=== PATIENT | male | born 1955 | race American Indian/Alaskan Native ===

== ENCOUNTER 2017-06-29 11:48 | Inpatient (IN) | payer OTHER ==
[2017-06-29 11:57] VITALS: BMI 25.1
[2017-06-29] MEDS ORDERED: Sodium Chloride 0.9% 1,000 ML IV ONE (12:08)
--- NOTE | 2017-06-29 12:16 | ED PDOC ---
Arrival/HPI - General Chief Complaint: Dizziness/Lightheaded Time Seen by Provider: 06/29/17 12:08 Historian: Patient, EMS EM Caveat: Altered Mental Status - History of Present Illness Narrative History of Present Illness (Text): 06/29/17 12:12 Pt arrived via EMS/from work, stating he felt very dizzy and lightheaded, + felt like he was about to pass out, pt states no sweats/chills, no cp/sob/ palpitations, no abd pain, no n/v, no numbness/tingling, no urinary/bowel changes; pt states no castañeda, no vision changes, no sore throat, ? body aches, decr appetite, no fall/trauma/travel, no sick contact; pt denied other complaints; pt is here for further eval. 06/29/17 22:34 pt also has had prolonged periods of left foot wound with ? discharge/bleeding pt does not have a PCP and has not seen anyone for his foot issues Time/Duration: Prior to Arrival Symptom Onset: Sudden Symptom Course: Unchanged Quality: Other (weakness) Severity Level: 9 Activities at Onset: Other (walking to the bathroom) Context: Walking Past Medical History - Provider Review Nursing Documentation Reviewed: Yes - Travel History Have you recently traveled outside [place] w/in the past 3 mons?: No - Cardiac Hx Cardiac Disorders: No - Pulmonary Hx Respiratory Disorders: No - Neurological Hx Neurological Disorder: No - HEENT Hx HEENT Disorder: No - Renal Hx Renal Disorder: No - Endocrine/Metabolic Hx Endocrine Disorders: No - Hematological/Oncological Hx Blood Disorders: No - Integumentary Hx Dermatological Disorder: No - Musculoskeletal/Rheumatological Hx Musculoskeletal Disorders: No - Gastrointestinal Hx Gastrointestinal Disorders: No - Genitourinary/Gynecological Hx Genitourinary Disorders: No - Psychiatric Hx Psychophysiologic Disorder: No Hx Substance Use: No Family/Social History - Physician Review Nursing Documentation Reviewed: Yes Family/Social History: Unknown Family HX Smoking Status: Never Smoked Hx Alcohol Use: No Hx Substance Use: No Allergies/Home Meds Allergies/Adverse Reactions: Allergies No Known Allergies Allergy (Verified 06/29/17 11:57) Home Medications: Home Meds Medication Instructions Recorded Confirmed No Known Home Med 06/29/17 06/29/17 Review of Systems - Review of Systems Constitutional: Fatigue, Fevers Eyes: Normal ENT: Normal Respiratory: Normal Cardiovascular: Normal Gastrointestinal: Normal Musculoskeletal: Other (lower leg pain) Skin: Normal Neurological: Dizziness, Disequilibrium Endocrine: Normal Hemo/Lymphatic: Normal Psychiatric: Normal Physical Exam - Physical Exam Physical Exam Limitations: Clinical Condition (elevated Fever/HR/BP) Vital Signs Temp Pulse Resp BP Pulse Ox 06/29/17 22:28 99.6 F 75 16 155/75 H 100 06/29/17 19:00 88 18 135/69 100 06/29/17 16:00 89 16 138/86 99 06/29/17 15:32 100.1 F H 06/29/17 13:14 95 H 16 142/90 99 06/29/17 12:28 103.3 F H 06/29/17 11:58 103.3 F H 108 H 20 183/84 H 97 06/29/17 11:57 103.3 F H 108 H 20 183/84 H 97 Temperature: Febrile Blood Pressure: Hypertensive Pulse: Tachycardic Respiratory Rate: Normal Appearance: Positive for: Other (uncomfortable, unsteady, resting in bed, alert/ awake, GCS = 15, oriented x 2 (not to date/time), cooperative) Pain Distress: Mild Mental Status: Positive for: Confused - Systems Exam Head: Present: Atraumatic, Normocephalic Pupils: Present: PERRL, Other (no photophobia, sclera anicteric, no nystagmus, no visual field changes/deficits) Extroacular Muscles: Present: EOMI Conjunctiva: Present: Normal Ears: Present: Normal Mouth: Present: Moist Mucous Membranes Pharnyx: Present: Normal Neck: Present: Normal Range of Motion Respiratory/Chest: Present: Clear to Auscultation Cardiovascular: Present: Normal S1, S2, Other (+ elevated HR, no murmur) Abdomen: Present: Normal Bowel Sounds, Other (well nourished male, no focal tenderness; no horowitz's sign, no mcburney's point tenderness). No: Tenderness Back: Present: Normal Inspection Upper Extremity: Present: Normal Inspection, Normal ROM, NORMAL PULSES, Neurovascularly Intact Lower Extremity: Present: Normal Inspection, NORMAL PULSES, Neurovascularly Intact, Other (+ left base of great toe with severe bunion with noted medial region ulcerations, + foul odor; no active discharge is noted, no active bleeding noted, neurovasc intact b/l, intact ROM) Neurological: Present: GCS=15, CN II-XII Intact, Speech Normal Skin: Present: Warm, Normal Color Psychiatric: Present: Alert, Normal Affect Medical Decision Making ED Course and Treatment: 06/29/17 12:27 pt with acute onset of fever/abnl vital signs and left lower ext infxn with foul odor A/P: at risk for sepsis - labs - iv - xray - cultures - abx - observe - supportive care Dr Reyes, podiatry cruise consultant, made aware, agrees with ED mgt/txt and will send her team down to evaluate patient 06/29/17 22:40 5pm - I spoke to cruise consultant hospitalists, made aware, agrees with ED mgt/txt, agrees with admission pt is made aware of his medical results agrees with admission Reassessment Condition: Improved - Lab Interpretations Microbiology Results: Microbiology Results 06/29/17 13:18 Foot - Left Gram Stain - Final Lab Results: 06/29/17 12:20 06/29/17 12:20 Lab Results 06/29/17 14:00: Hemoglobin A1c 6.9 H 06/29/17 14:00: ESR 80 H 06/29/17 14:00: C-React Prot High Sens > 15.00 H 06/29/17 12:29: POC Glucose (mg/dL) 152 H 06/29/17 12:20: Triglycerides 73, Cholesterol 148, LDL Cholesterol Direct 72, HDL Cholesterol 49 06/29/17 12:20: Procalcitonin 0.42 06/29/17 12:20: Sodium 140, Chloride 102, Potassium 3.9, Carbon Dioxide 25, Anion Gap 17, BUN 24 H, Creatinine 1.3, Est GFR ( Amer) > 60, Est GFR ( Non-Af Amer) 57, Random Glucose 166 H, Calcium 9.8, Phosphorus 2.9, Magnesium 0.8 L*, Total Bilirubin 0.5, AST 32, ALT 29, Alkaline Phosphatase 71, Troponin I 0.06, Total Protein 7.8, Albumin 3.8, Globulin 4.0, Albumin/Globulin Ratio 0.9 L 06/29/17 12:20: pO2 57 H, VBG pH 7.46 H, VBG pCO2 39.0 L, VBG HCO3 27.7, VBG Total CO2 28.9 H, VBG O2 Sat (Calc) 92.0 H, VBG Base Excess 3.7 H, VBG Potassium 4.0, Sodium 137.0, Chloride 103.0, Glucose 169 H, Lactate 1.7, FiO2 21.0, Venous Blood Potassium 4.0 06/29/17 12:20: Urine Color Yellow, Urine Appearance Clear, Urine pH 6.0, Ur Specific [place] >= 1.030, Urine Protein >=300 H, Urine Glucose (UA) 100 H, Urine Ketones Negative, Urine Blood Moderate H, Urine Nitrate Negative, Urine Bilirubin Negative, Urine Urobilinogen 0.2, Ur Leukocyte Esterase Negative, Urine RBC 1 - 3, Urine WBC 1 - 3, Ur Epithelial Cells 1 - 3, Urine Bacteria Few , Urine Other Usperm 06/29/17 12:20: WBC 7.3, RBC 4.28, Hgb 13.5 L, Hct 39.5 L, MCV 92.3, MCH 31.5, MCHC 34.2, RDW 12.5, Plt Count 225, MPV 8.7, Gran % 90.7 H, Lymph % (Auto) 3.6 L , [place] % (Auto) 4.8, Eos % (Auto) 0.8 L, Baso % (Auto) 0.1, Gran # 6.58 H, Lymph # 0.3 L, [place] # 0.4, Eos # 0.1, Baso # 0.01, Neutrophils % (Manual) 91 H, Lymphocytes % (Manual) 6 L, Monocytes % (Manual) 3, Platelet Evaluation Normal, Anisocytosis (manual) Slight I have reviewed the lab results: Yes (mildly elevated GLUC) Interpretation: Abnormal lab values - RAD Interpretation Radiology Orders: 06/29/17 12:09 CHEST TWO VIEWS (PA/LAT) [RAD] Stat 06/29/17 12:21 FOOT LEFT 3 VIEWS ROUTINE [RAD] Stat BONES: No acute fracture. There is an ovoid circumscribed radiolucent lesion centrally within the medullary portion of the proximal 3rd metatarsal diaphysis. There is endosteal scalloping. There is no expansion. There is no identifiable calcified matrix within this lesion. There is no associated periosteal reaction or evidence soft tissue mass. Most likely diagnosis is enchondroma but its appearance is not pathognomonic. JOINTS: There is severe lateral subluxation at the 1st metatarsal phalangeal articulation. There is articular erosion of the 1st metatarsal. Questionable juxta-articular erosion of the metatarsal head is seen on series 6. There is subluxation/dislocation at the 2nd metatarsal phalangeal articulation and at the 3rd metatarsal phalangeal articulation. There is pencil -like deformity of the distal aspect of the 2nd metatarsal. These findings are of uncertain significance. The possibility of psoriatic arthritis must be considered. Gout should also be considered particularly in light of possible juxta-articular erosion of the distal 1st metatarsal with overhanging edges and possible overlying tophus. There is cutaneous ulceration over the medial aspect of the 1st metatarsal head. SOFT TISSUES: Soft tissue swelling over medial aspect 1st metatarsal head with cutaneous ulceration. OTHER FINDINGS: None. IMPRESSION: Subluxation at 1st through 3rd metatarsal phalangeal articulation with valgus deformity. Pencil like narrowing of distal aspect of 2nd metatarsal. Possible juxta-articular erosion of distal 1st metatarsal with overlying soft tissue swelling, possibly due to gout. Psoriatic arthritis may also be considered for the generalized articular abnormality at the MTP joints. Circumscribed lucent lesion of the proximal 3rd metatarsal diaphysis with an appearance suggestive of enchondroma though this is not pathognomonic. Followup advised. CXR: FINDINGS: LUNGS: No pulmonary infiltrate. Probable small calcified granulomas in the lateral upper right thania thorax, not identified in the lateral projection. PLEURA: No significant pleural effusion identified. No pneumothorax apparent. CARDIOVASCULAR: Normal. OSSEOUS STRUCTURES: No significant abnormalities. VISUALIZED UPPER ABDOMEN: Normal. OTHER FINDINGS: None. IMPRESSION: Small calcified granulomas in right lung. No acute infiltrate. 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 - Medication Orders Current Medication Orders: Acetaminophen (Tylenol 325mg Tab) 975 mg PO ONCE PRN PRN Reason: Fever >100.4 F Last Admin: 06/29/17 12:28 Dose: 975 mg MAR Pain/Vitals Document 06/29/17 12:28 HI (Rec: 06/29/17 12:29 HI [id number]) Pain Reassessment Is This A Pain ReAssessment? No Vitals Temperature (97.6 F-99.6 F) 103.3 F Temperature Source Oral Clotrimazole (Lotrimin Af 1%) 0 ml TOP BID DELORES Enoxaparin Sodium (Lovenox) 30 mg SC DAILY DELORES PRN Reason: Protocol Famotidine (Pepcid) 40 mg PO HS DELORES Sodium Chloride (Sodium Chloride 0.9%) 1,000 mls @ 150 mls/hr IV .Q6H40M DELORES Last Admin: 06/29/17 19:11 Dose: 150 mls/hr eMAR Start Stop Document 06/29/17 19:11 HI (Rec: 06/29/17 19:12 [id number]) Intravenous Solution Start Date 06/29/17 Start Time 19:12 Vancomycin HCl (Vancomycin 500mg In Ns) 500 mg in 100 mls @ 200 mls/hr IVPB Q12 DELORES PRN Reason: Protocol Piperacillin Sod/Tazobactam Sod (Zosyn 3.375 In Ns 100ml) 100 mls @ 200 mls/hr IVPB Q6 DELORES PRN Reason: Protocol Stop: 06/30/17 00:29 Last Admin: 06/29/17 20:20 Dose: 200 mls/hr eMAR Start Stop Document 06/29/17 20:20 HI (Rec: 06/29/17 20:20 [id number]) Intravenous Solution Start Date 06/29/17 Start Time 20:20 Lactic Acid (Lac-Hydrin 12% Cream (140 G)) 1 ea TOP DAILY DELORES Lorazepam (Ativan) 2 mg IVP Q6H PRN; Protocol PRN Reason: Anxiety Discontinued Medications Sodium Chloride (Sodium Chloride 0.9%) 1,000 mls @ 2,000 mls/hr IV .Q30M ONE Stop: 06/29/17 12:37 Last Admin: 06/29/17 12:29 Dose: 2,000 mls/hr eMAR Start Stop Document 06/29/17 12:29 HI (Rec: 06/29/17 12:29 [id number]) Intravenous Solution Start Date 06/29/17 Start Time 12:29 Vancomycin HCl 1.5 gm/ Sodium (Chloride) 250 mls @ 167 mls/hr IVPB ONCE ONE PRN Reason: Protocol Stop: 06/29/17 13:52 Last Admin: 06/29/17 14:16 Dose: 167 mls/hr eMAR Start Stop Document 06/29/17 14:16 HI (Rec: 06/29/17 14:16 HI [facility] [id number]) Intravenous Solution Start Date 06/29/17 Start Time 14:16 Piperacillin Sod/Tazobactam Sod (Zosyn 3.375 In Ns 100ml) 100 mls @ 200 mls/hr IVPB STAT STA PRN Reason: Protocol Stop: 06/29/17 12:52 Last Admin: 06/29/17 13:26 Dose: 200 mls/hr eMAR Start Stop Document 06/29/17 13:26 HI (Rec: 06/29/17 13:26 HI [facility] [id number]) Intravenous Solution Start Date 06/29/17 Start Time 13:26 Magnesium Sulfate 2 gm/ Sodium (Chloride) 104 mls @ 102 mls/hr IVPB ONCE ONE Stop: 06/29/17 15:05 Last Admin: 06/29/17 15:27 Dose: 102 mls/hr eMAR Start Stop Document 06/29/17 15:27 HI (Rec: 06/29/17 15:27 HI [facility] [id number]) Intravenous Solution Start Date 06/29/17 Start Time 15:27 Morphine Sulfate (Morphine) 4 mg IVP STAT STA Stop: 06/29/17 14:29 Last Admin: 06/29/17 15:18 Dose: 4 mg [facility] Pain Assessment Document 06/29/17 15:18 HI (Rec: 06/29/17 15:18 HI [facility] [id number]) Pain Reassessment Is this a pain reassessment? No Sleep Is patient sleeping during reassessment? No Presence of Pain Presence of Pain Yes Location Left, Right or Bilateral Right Pain Location Body Site Foot IVP Administration Document 06/29/17 15:18 HI (Rec: 06/29/17 15:18 HI [facility] [id number]) Charges for Administration # of IVP Administrations 1 Re-Assess: MAR Pain Assessment Document 06/29/17 16:18 HI (Rec: 06/29/17 16:35 HI [facility] [id number]) Pain Reassessment Is this a pain reassessment? Yes Sleep Is patient sleeping during reassessment? No Presence of Pain Presence of Pain No Silver Sulfadiazine (Silvadene 1% 25 Gm) 1 gm TP STAT STA Stop: 06/29/17 13:30 Disposition/Present on Arrival - Present on Arrival Any Indicators Present on Arrival: No History of DVT/PE: No History of Uncontrolled Diabetes: No Urinary Catheter: No History of Decub. Ulcer: No History Surgical Site Infection Following: None - Disposition Have Diagnosis and Disposition been Completed?: Yes Diagnosis: High risk for sepsis, Foot infection Disposition: HOSPITALIZED Disposition Time: 17:00 Patient Plan: Admission Condition: FAIR
[2017-06-29] MEDS ORDERED: Piperacillin/Tazobact 3.375 gm 100 ML IVPB STA (12:23)
[2017-06-29 12:37] LABS: VENOUS BLOOD GAS BASE EXCESS 3.7 mmol/L (0.0-2.0); VENOUS BLOOD PH 7.46 (7.32-7.43)
[2017-06-29 12:40] LABS: BASO # 0.01 K/mm3 (0.0-2.0); BASO % 0.1 % (0.0-3.0); EOS # 0.1 (0.0-0.7); EOS % 0.8 % (1.5-5.0); GRAN # 6.58 (1.4-6.5); GRAN % 90.7 % (50.0-68.0); HEMATOCRIT 39.5 % (42.0-52.0); LYMPH # 0.3 (1.2-3.4); LYMPH % 3.6 % (22.0-35.0); MEAN CELL VOLUME 92.3 fl (80.0-105.0); MEAN CORPUSCULAR HEMOGLOBIN 31.5 pg (25.0-35.0); MEAN CORPUSCULAR HGB CONC 34.2 g/dl (31.0-37.0); MEAN PLATELET VOLUME 8.7 fl (7.0-11.0); MONO # 0.4 (0.1-0.6); MONO % 4.8 % (1.0-6.0); PLATELET COUNT 225 10^3/uL (120.0-450.0); RED CELL DISTRIBUTION WIDTH 12.5 % (11.5-14.5); URINE BILIRUBIN NEGATIVE (NEGATIVE); URINE BLOOD MODERATE (NEGATIVE); URINE GLUCOSE (UA) 100 mg/dL (NEGATIVE); URINE KETONE NEGATIVE (NEGATIVE); URINE LEUKOCYTE ESTERASE NEGATIVE Leu/uL (NEGATIVE); URINE PROTEIN >=300 mg/dL (<30 mg/dL); URINE UROBILINOGEN 0.2 E.U./dL (<1 E.U./dL); WHITE BLOOD COUNT 7.3 10^3/ul (4.5-11.0)
[2017-06-29 12:48] LABS: URINE APPEARANCE CLEAR (CLEAR); URINE COLOR YELLOW (YELLOW)
[2017-06-29 12:53] LABS: URINE BACTERIA FEW (NEG)
[2017-06-29 13:01] LABS: TROPONIN I 0.06 ng/mL
[2017-06-29 13:04] LABS: ALB/GLOB RATIO 0.9 (1.1-1.8); ALKALINE PHOSPHATASE 71 U/L (38-126); ALT/SGPT 29 U/L (7-56); AST/SGOT 32 U/L (17-59); BILIRUBIN,TOTAL 0.5 mg/dL (0.2-1.3); BLOOD UREA NITROGEN 24 mg/dL (7-21); CALCIUM 9.8 mg/dL (8.4-10.5); CARBON DIOXIDE 25 mmol/L (21-33); CHLORIDE 102 mmol/L (98-107); GFR AFRICAN-AMERICAN > 60; GLUCOSE,RANDOM 166 mg/dL (70-110); MAGNESIUM 0.8 mg/dL (1.7-2.2); PHOSPHOROUS 2.9 mg/dL (2.5-4.5); POTASSIUM 3.9 mmol/L (3.6-5.0); SODIUM 140 mmol/L (132-148); TOTAL PROTEIN 7.8 g/dL (5.8-8.3)
[2017-06-29 13:19] LABS: ANISOCYTOSIS SLIGHT; NEUTROPHIL 91 % (50.0-70.0); PLATELET ESTIMATE NORMAL (NORMAL)
[2017-06-29] MEDS ORDERED: Silver Sulfadiazine 1% Cream (25 gm) TP STA (13:29)
--- NOTE | 2017-06-29 13:53 | CP.PCM.CON ---
History of Present Illness - History of Present Illness History of Present Illness: Podiatry Consult Note for Dr. Reyes 61 year old male with unknown PMH was consulted for podiatry for left foot ulceration. Patient came to the ED after feeling dizzy at work and unable to walk. He reports that a similar incident occurred 3 weeks ago. He felt dizzy, weak, and unable to walk properly which prompt him to leave work early to rest at home. Patient complains of left foot problem. Reports that his "foot burst opened" 2 weeks ago. He reports 10/10 throbbing pain to the left foot. He denies any recent trauma/fall. Never had this problem in the past. He denies nausea, chest pain, chills, shortness of breath. He reports that he vomited yesterday and has a fever today. He denies calf pain. Primary: doesn't recall name; reports last saw him 6 months ago PMH: unknown; reports getting blood work done from primary but results unknown PSH: denies ALL: NKDA MEDS: denies FH: father- DM, mother-none SH: 20 year smoker, 3-4 cigarettes per day; drinks 1 can of beer per day for over 10 years; denies elicit drug use Review of Systems - Review of Systems All systems: reviewed and no additional remarkable complaints except Review of Systems: per HPI - Constitutional Constitutional: As Per HPI, Fever Past Patient History - Past Social History Smoking Status: Never Smoked - CARDIAC Hx Cardiac Disorders: No - PULMONARY Hx Respiratory Disorders: No - NEUROLOGICAL Hx Neurological Disorder: No - HEENT Hx HEENT Problems: No - RENAL Hx Chronic Kidney Disease: No - ENDOCRINE/METABOLIC Hx Endocrine Disorders: No - HEMATOLOGICAL/ONCOLOGICAL Hx Blood Disorders: No - INTEGUMENTARY Hx Dermatological Problems: No - MUSCULOSKELETAL/RHEUMATOLOGICAL Hx Musculoskeletal Disorders: No - GASTROINTESTINAL Hx Gastrointestinal Disorders: No - GENITOURINARY/GYNECOLOGICAL Hx Genitourinary Disorders: No - PSYCHIATRIC Hx Psychophysiologic Disorder: No Hx Substance Use: No - SURGICAL HISTORY Hx Surgeries: No Meds Allergies/Adverse Reactions: Allergies Allergy/AdvReac Type Severity Reaction Status Date / Time No Known Allergies Allergy Verified 06/29/17 11:57 - Medications Medications: Current Medications Acetaminophen (Tylenol 325mg Tab) 975 mg PO ONCE PRN PRN Reason: Fever >100.4 F Last Admin: 06/29/17 12:28 Dose: 975 mg Sodium Chloride (Sodium Chloride 0.9%) 1,000 mls @ 150 mls/hr IV .Q6H40M DELORES Vancomycin HCl 1.5 gm/ Sodium (Chloride) 250 mls @ 167 mls/hr IVPB ONCE ONE PRN Reason: Protocol Stop: 06/29/17 13:52 Lactic Acid (Lac-Hydrin 12% Cream (140 G)) 1 ea TOP DAILY DELORES Physical Exam - Constitutional Appears: Well, Non-toxic, No Acute Distress - Extremities Exam Additional comments: Vasc: DP and PT 1/4 bilaterally, CFT < 3 seconds x 10 digits, temperature warm to warm, edema noted to the left forefoot Ortho: severe pain with palpation to the site surrounding ulceration; severe hallux valgus bilaterally, lateral deviation of the digits noted, hammertoe contractures 2-4 noted Neuro: protective and gross sensation intact bilaterally Derm: ulceration at the medial plantar aspect of the 1st MPJ of left foot measuring approximately 1.5 cm x 2cm x . 2 cm. Wound base is 50% fibrotic, 50% granular with fibrotic slough noted to the plantar aspect of the ulceration. Approximately 1 cc of purulence drainaged expressed from the proximal plantar aspect of the ulceration; mild undermining noted to the ulceration plantarly; no tunneling noted; no probing to bone noted; erythema and malodorous. No streaking noted; Macerated and intact periwound noted. Discoloration/ hyperpigmentated skin noted to the LE bilaterally. - Neurological Exam Neurological exam: Alert, Oriented x3 - Psychiatric Exam Psychiatric exam: Normal Affect, Normal Mood Results - Vital Signs Recent Vital Signs: Last Vital Signs Temp 103.3 F H 06/29/17 12:28 Pulse 95 H 06/29/17 13:14 Resp 16 06/29/17 13:14 BP 142/90 06/29/17 13:14 Pulse Ox 99 06/29/17 13:14 - Labs Result Diagrams: 06/29/17 12:20 06/29/17 12:20 Labs: Laboratory Results - last 24 hr 06/29/17 06/29/17 06/29/17 12:20 12:20 12:20 WBC 7.3 RBC 4.28 Hgb 13.5 L Hct 39.5 L MCV 92.3 MCH 31.5 MCHC 34.2 RDW 12.5 Plt Count 225 MPV 8.7 Gran % 90.7 H Lymph % (Auto) 3.6 L [place] % (Auto) 4.8 Eos % (Auto) 0.8 L Baso % (Auto) 0.1 Gran # 6.58 H Lymph # 0.3 L [place] # 0.4 Eos # 0.1 Baso # 0.01 Neutrophils % (Manual) 91 H Lymphocytes % (Manual) 6 L Monocytes % (Manual) 3 Platelet Evaluation Normal Anisocytosis (manual) Slight pO2 57 H VBG pH 7.46 H VBG pCO2 39.0 L VBG HCO3 27.7 VBG Total CO2 28.9 H VBG O2 Sat (Calc) 92.0 H VBG Base Excess 3.7 H VBG Potassium 4.0 Sodium 137.0 Chloride 103.0 Glucose 169 H Lactate 1.7 FiO2 21.0 Potassium Carbon Dioxide Anion Gap BUN Creatinine Est GFR ( Amer) Est GFR (Non-Af Amer) Random Glucose Calcium Phosphorus Magnesium Total Bilirubin AST ALT Alkaline Phosphatase Troponin I Total Protein Albumin Globulin Albumin/Globulin Ratio Venous Blood Potassium 4.0 Urine Color Yellow Urine Appearance Clear Urine pH 6.0 Ur Specific [place] >= 1.030 Urine Protein >=300 H Urine Glucose (UA) 100 H Urine Ketones Negative Urine Blood Moderate H Urine Nitrate Negative Urine Bilirubin Negative Urine Urobilinogen 0.2 Ur Leukocyte Esterase Negative Urine RBC 1 - 3 Urine WBC 1 - 3 Ur Epithelial Cells 1 - 3 Urine Bacteria Few Urine Other Usperm 06/29/17 12:20 WBC RBC Hgb Hct MCV MCH MCHC RDW Plt Count MPV Gran % Lymph % (Auto) [place] % (Auto) Eos % (Auto) Baso % (Auto) Gran # Lymph # [place] # Eos # Baso # Neutrophils % (Manual) Lymphocytes % (Manual) Monocytes % (Manual) Platelet Evaluation Anisocytosis (manual) pO2 VBG pH VBG pCO2 VBG HCO3 VBG Total CO2 VBG O2 Sat (Calc) VBG Base Excess VBG Potassium Sodium 140 Chloride 102 Glucose Lactate FiO2 Potassium 3.9 Carbon Dioxide 25 Anion Gap 17 BUN 24 H Creatinine 1.3 Est GFR ( Amer) > 60 Est GFR (Non-Af Amer) 57 Random Glucose 166 H Calcium 9.8 Phosphorus 2.9 Magnesium 0.8 L* Total Bilirubin 0.5 AST 32 ALT 29 Alkaline Phosphatase 71 Troponin I 0.06 Total Protein 7.8 Albumin 3.8 Globulin 4.0 Albumin/Globulin Ratio 0.9 L Venous Blood Potassium Urine Color Urine Appearance Urine pH Ur Specific [place] Urine Protein Urine Glucose (UA) Urine Ketones Urine Blood Urine Nitrate Urine Bilirubin Urine Urobilinogen Ur Leukocyte Esterase Urine RBC Urine WBC Ur Epithelial Cells Urine Bacteria Urine Other Assessment & Plan - Assessment and Plan (Free Text) Assessment: 61 year old male with unknown PMH with infected left foot ulceration Plan: Patient examined and evaluated Labs, charts, vitals reviewed (febrile, absent leukocytosis: 7.3) Discussed plan in detail with attending Dr. Reyes X-rays taken- pending final results Wound culture order and taken- pending results Ulceration cleansed with saline, dressed with xerform, dsd, and demi ESR, RF factor ordered- pending results Silvadene ordered- to be applied to ulceration once on floors by podiatry Lac-Hydrin ordered- to be applied to LE PRN, avoid foot interspaces Lotrimin ordered- to be applied to LE as instructed Podiatry will continue to follow once on floors Thank you for the consult
[2017-06-29] MEDS ORDERED: Magnesium Sulfate 2 GM in Sodium Chloride 0.9% 100 ML IVPB ONE (14:04)
[2017-06-29] MEDS ORDERED: Morphine 2 mg/ml ISec IVP STA (14:28)
--- NOTE | 2017-06-29 15:13 | CP.PCM.HP ---
<Laura Mcgraw - Last Filed: 06/29/17 15:56> History of Present Illness - History of Present Illness History of Present Illness: Laura Mcgraw, PGY1, Medicine H&P for Dr Antonio: CC: dizziness 61 year old male with PMH questionable HTN, presents for dizziness that started 4 hours MED DIR. Pt states that he was in his usual state of health this morning, went to work, and then felt dizzy while he was heading towards the bathroom. Verbalizes increased urinary frequency for past month, denies hematuria, dysuria , hesitancy. Pt felt like he was "about to pass out." Denies LOC, chest pain, sob, cough, abdominal pain, diarrhea, constipation, leg swelling. Pt is complaining of left foot pain that started a month ago, pt does not recall any trauma or prior infection to the area. Pt has some dull pain at the site, denies any purulent drainage. Pt admits to fever this morning, however, denies any chills, diaphoresis, headache, neck pain, food intolerance, weight loss. In ED, pt found to have a left sided foot ulcer, podiatry on board, wrapped the wound. Pending foot x ray. Pt febrile 103.3, tachycardic 108, hypertensive 183/ 84, no leukocytosis, hypomagnesemic 0.8. Given Vanco and Zosyn x1, repleted Mg. 12 point ROS obtained and negative, except as noted per HPI. PMD: Pt does not have a PMD; last visit to a doctor 6 months ago for a cold PMH: HTN?, unknown PSH: hernia repair ALL: NKDA MEDS: denies FH: father- DM, mother-none SH: Lives in a house, has neighbors. 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 Walks unassisted. 20 year smoker, 3-4 cigarettes per day for past 30 years; drinks 2- 3 cans of beer per day for over 20 years; denies illicit drug use. Present on Admission - Present on Admission Any Indicators Present on Admission: No History of DVT/PE: No History of Uncontrolled Diabetes: No Urinary Catheter: No Decubitus Ulcer Present: No Review of Systems - Review of Systems All systems: reviewed and no additional remarkable complaints except Review of Systems: as per HPI Past Patient History - Past Social History Smoking Status: Never Smoked - CARDIAC Hx Cardiac Disorders: No - PULMONARY Hx Respiratory Disorders: No - NEUROLOGICAL Hx Neurological Disorder: No - HEENT Hx HEENT Problems: No - RENAL Hx Chronic Kidney Disease: No - ENDOCRINE/METABOLIC Hx Endocrine Disorders: No - HEMATOLOGICAL/ONCOLOGICAL Hx Blood Disorders: No - INTEGUMENTARY Hx Dermatological Problems: No - MUSCULOSKELETAL/RHEUMATOLOGICAL Hx Musculoskeletal Disorders: No - GASTROINTESTINAL Hx Gastrointestinal Disorders: No - GENITOURINARY/GYNECOLOGICAL Hx Genitourinary Disorders: No - PSYCHIATRIC Hx Psychophysiologic Disorder: No Hx Substance Use: No - SURGICAL HISTORY Hx Surgeries: No Meds Allergies/Adverse Reactions: Allergies Allergy/AdvReac Type Severity Reaction Status Date / Time No Known Allergies Allergy Verified 06/29/17 11:57 Physical Exam - Constitutional Appears: Non-toxic, Unkempt, Older Than Stated Age - Head Exam Head Exam: ATRAUMATIC, NORMOCEPHALIC - Eye Exam Eye Exam: EOMI, PERRL. absent: Scleral icterus - ENT Exam ENT Exam: Mucous Membranes Moist, Normal Exam - Respiratory Exam Respiratory Exam: Clear to Auscultation Bilateral. absent: Decreased Breath Sounds, Respiratory Distress - Cardiovascular Exam Cardiovascular Exam: Tachycardia, +S1, +S2. absent: Systolic Murmur - GI/Abdominal Exam GI & Abdominal Exam: Normal Bowel Sounds, Soft. absent: Distended, Guarding, Organomegaly, Pulsatile Mass, Rebound, Rigid, Tenderness - Extremities Exam Extremities exam: Negative for: calf tenderness, pedal edema Additional comments: left foot covered in dressing, c/d/i - Neurological Exam Neurological exam: Alert, Oriented x3 - Psychiatric Exam Psychiatric exam: Normal Affect - Skin Skin Exam: Dry, Normal Color, Warm Results - Vital Signs Recent Vital Signs: Last Vital Signs Temp 103.3 F H 06/29/17 12:28 Pulse 95 H 06/29/17 13:14 Resp 16 06/29/17 13:14 BP 142/90 06/29/17 13:14 Pulse Ox 99 06/29/17 13:14 - Labs Result Diagrams: 06/29/17 12:20 06/29/17 12:20 Assessment & Plan - Assessment and Plan (Free Text) Assessment: 61 years old male with PMH HTN?, presents for sepsis, dizziness/near syncope, HTN urgency, left foot ulcer, hypomagnesemia: Sepsis: - 2/2 likely left foot infection - Pt febrile 103.3 and tachycardic, given Tylenol in ED. Given Vanco and Zosyn x1 in ED. - CXR, UA, wound culture, blood cultures, urine cultures, procal, ESR, CRP, left foot x ray. - Lactate 1.7. - Will order MRI left foot to r/o osteomyelitis - Podiatry on board. Appreciate recs. - Will obtain ID consult. - Cont with IV Vanco and zosyn empirically Dizziness: - 2/2 likely orthostatic vs cardiac etiology (arrhythmias, valvular abnormalities, acute ischemia) vs neurogenic etiology - Echo, carotid US, EKG, Remote tele monitoring - Lipid panel, HGb A1C - Obtain Cardio consult. HTN urgency: - BP elevated 183/84 on admission, currently 142/90. Cont to monitor. - Can give one time dose of Lopressor 5 mg if needed. DVT ppx: Lovenox GI PPX: Pepcid Discussed with Dr Antonio - Date & Time Date: 06/29/17 Time: 15:41 <Piotr Antonio - Last Filed: 06/29/17 16:23> Results - Vital Signs Recent Vital Signs: Last Vital Signs Temp 100.1 F H 06/29/17 15:32 Pulse 95 H 06/29/17 13:14 Resp 16 06/29/17 13:14 BP 142/90 06/29/17 13:14 Pulse Ox 99 06/29/17 13:14 - Labs Result Diagrams: 06/29/17 12:20 06/29/17 12:20 Labs: Laboratory Results - last 24 hr 06/29/17 15:37 Alcohol, Quantitative < 10 Attending/Attestation - Attestation I have personally seen and examined this patient.: Yes I have fully participated in the care of the patient.: Yes I have reviewed all pertinent clinical information: Yes Notes (Text): 06/29/17 16:16 61 year old male with no known past medical history except ETOH use who is admitted for sepsis likely secondary to left foot infection. Left foot xray and MRI foot were ordered to rule out OM. Will follow up on ESR and CRP. Continue with iv antibiotics as per ID and wound care as per podiatry. Will follow up on cultures. He also presented with complaint of presyncopal episode and elevated blood pressure. Will obtain CT head, orthostatics, carotid dopplers and echocardiogram. Cardiology evaluation is requested. Initial troponin is indeterminant and repeat cardiac enzymes are ordered. He denies any chest pain or shortness of breath. Alcohol level was also ordered; will monitor for withdrawal symptoms. Will replete and repeat magnesium. Piotr Antonio MD Hospitalist.
[2017-06-29] MEDS: Sodium Chloride 0.9% 1,000 ML IV SCH ×2 (15:27→19:11)
[2017-06-29 15:46] LABS: CHOLESTEROL 148 mg/dL (130-200)
--- NOTE | 2017-06-29 16:00 | RAD ---
PROCEDURE: Left Foot Radiographs. HISTORY: foot pain/chronic, requiring surgery COMPARISON: None. FINDINGS: BONES: No acute fracture. There is an ovoid circumscribed radiolucent lesion centrally within the medullary portion of the proximal 3rd metatarsal diaphysis. There is endosteal scalloping. There is no expansion. There is no identifiable calcified matrix within this lesion. There is no associated periosteal reaction or evidence soft tissue mass. Most likely diagnosis is enchondroma but its appearance is not pathognomonic. JOINTS: There is severe lateral subluxation at the 1st metatarsal phalangeal articulation. There is articular erosion of the 1st metatarsal. Questionable juxta-articular erosion of the metatarsal head is seen on series 6. There is subluxation/dislocation at the 2nd metatarsal phalangeal articulation and at the 3rd metatarsal phalangeal articulation. There is pencil -like deformity of the distal aspect of the 2nd metatarsal. These findings are of uncertain significance. The possibility of psoriatic arthritis must be considered. Gout should also be considered particularly in light of possible juxta-articular erosion of the distal 1st metatarsal with overhanging edges and possible overlying tophus. There is cutaneous ulceration over the medial aspect of the 1st metatarsal head. SOFT TISSUES: Soft tissue swelling over medial aspect 1st metatarsal head with cutaneous ulceration. OTHER FINDINGS: None. IMPRESSION: Subluxation at 1st through 3rd metatarsal phalangeal articulation with valgus deformity. Pencil like narrowing of distal aspect of 2nd metatarsal. Possible juxta-articular erosion of distal 1st metatarsal with overlying soft tissue swelling, possibly due to gout. Psoriatic arthritis may also be considered for the generalized articular abnormality at the MTP joints. Circumscribed lucent lesion of the proximal 3rd metatarsal diaphysis with an appearance suggestive of enchondroma though this is not pathognomonic. Followup advised.
--- NOTE | 2017-06-29 16:50 | RAD ---
HISTORY: Sepsis Patient COMPARISON: No prior. TECHNIQUE: Chest PA and lateral FINDINGS: LUNGS: No pulmonary infiltrate. Probable small calcified granulomas in the lateral upper right thania thorax, not identified in the lateral projection. PLEURA: No significant pleural effusion identified. No pneumothorax apparent. CARDIOVASCULAR: Normal. OSSEOUS STRUCTURES: No significant abnormalities. VISUALIZED UPPER ABDOMEN: Normal. OTHER FINDINGS: None. IMPRESSION: Small calcified granulomas in right lung. No acute infiltrate.
--- NOTE | 2017-06-29 17:34 | MRI ---
PROCEDURE: MRI of the left foot without contrast HISTORY: left foot infection COMPARISON: Comparison is made to the previous x-ray dated 06/29/2017 TECHNIQUE: Axial coronal and sagittal MRI images of the left foot were obtained without IV contrast administration. FINDINGS: There is cortical erosion and bone marrow edema at the distal head of the 1st metatarsal bone adjacent to skin ulcer. Findings suspicious for osteomyelitis. No other acute pathology in the osseous structure noted. There is with defined hyperintense T2 and hypointense T1 lesion at the proximal portion of the 3rd metatarsal bone measures 13 millimeter in the largest AP diameter and 9 millimeter in the largest transverse diameter may represent benign cyst. Severe degenerative changes are again noted. Severe subluxation at the metatarsal-phalangeal joints are noted. Heterogeneous increased signal in the soft tissue noted without evidence of discrete fluid collection. Crfe-vm-lagpiabs diffuse increased signal of the muscles also noted suggestive of myositis. Mild to moderate soft tissue edema noted. IMPRESSION: Cortical erosion and bone marrow edema at the lateral aspect of the distal 1st metatarsal head suspicious for osteomyelitis. Well defined cystic lesion at the proximal portion of the 3rd metatarsal bone. Severe arthritic degenerative changes and subluxation at the metatarsal-phalangeal joints.
[2017-06-29] MEDS: Piperacillin/Tazobact 3.375 gm 100 ML IVPB SCH (20:20)
--- NOTE | 2017-06-29 22:20 | CT ---
EXAM: CT Head Without Intravenous Contrast CLINICAL HISTORY: 61 years old, male; Signs and symptoms; Dizziness TECHNIQUE: Axial computed tomography images of the head/brain without intravenous contrast. All CT scans at this facility use one or more dose reduction techniques, viz.: automated exposure control; ma/kV adjustment per patient size (including targeted exams where dose is matched to indication; Brain: [id number] atrophy. COMPARISON: No relevant prior studies available. FINDINGS: Brain: No intracranial hemorrhage. No mass. Several scattered foci of decreased attenuation within periventricular/subcortical white matter. Probable chronic lacunar infarct within RIGHT basal ganglia. No definite edema. Ventricles: No hydrocephalus. Bones/joints: No acute fracture. Soft tissues: Unremarkable. Vasculature: Atherosclerotic disease of intracranial arteries. Sinuses: Scattered minimal mucosal thickening. Mastoid air cells: No mastoid effusion. Orbits: Unremarkable as visualized. Other findings: head); or iterative reconstruction technique. IMPRESSION: 1. Nonspecific white matter changes. Acute infarction may be CT occult within first 24 hours. If a focal deficit persists, consider followup CT or MRI for further evaluation. 2. Incidental/non-acute findings are described above.
[2017-06-29] MEDS: Vancomycin 500mg in NS 500 MG/100 ML BAG IVPB SCH (23:25)
[2017-06-29 23:26] LABS: MAGNESIUM 1.4 mg/dL (1.7-2.2)
[2017-06-29 23:37] LABS: TROPONIN I 0.09 ng/mL
[2017-06-30] MEDS: Piperacillin/Tazobact 3.375 gm 100 ML IVPB SCH ×3 (00:55→17:28)
[2017-06-30 04:25] LABS: TROPONIN I 0.08 ng/mL
[2017-06-30] MEDS: Sodium Chloride 0.9% 1,000 ML IV SCH ×2 (05:41→20:35)
[2017-06-30] MEDS ORDERED: Magnesium Sulfate 2 GM in Sodium Chloride 0.9% 100 ML IVPB ONE (07:25)
--- NOTE | 2017-06-30 09:20 | US ---
PROCEDURE: Bilateral carotid artery duplex ultrasound HISTORY: Carotid stenosis dizziness PHYSICIAN(S): Santos Dent MD. TECHNIQUE: Duplex sonography and color-flow Doppler were used to evaluate the carotid bifurcations and limited segments of the vertebral arteries bilaterally. FINDINGS: There is mild to moderate focal heterogeneous plaque noted at the carotid bifurcations bilaterally. The peak systolic velocity in the proximal right internal carotid artery is 85 cm/sec. This corresponds to a 20 to 39% proximal right ICA stenosis. Mildly elevated systolic velocities are noted in the proximal right external carotid artery. There is antegrade flow in the small right vertebral artery. The left carotid bifurcation is obscured by shadowing plaque. The peak systolic velocity in the proximal left internal carotid artery is 87 cm/sec. This corresponds to a 20 to 39% proximal left ICA stenosis. Mildly elevated systolic velocities are noted in the proximal left external carotid artery. There is antegrade flow in the left vertebral artery. IMPRESSION: 1. Bilateral 20-39% proximal ICA stenoses. 2. Antegrade flow in both vertebral arteries. 3. Limited study due to shadowing plaque
[2017-06-30] MEDS: Clotrimazole 1% Top Soln(10 ml) TOP SCH ×2 (09:29→17:26)
[2017-06-30] MEDS: Ammonium Lactate 12% Cream (140 g) TOP SCH (09:29)
[2017-06-30] MEDS: Enoxaparin 30 mg Syringe SC SCH (09:35)
[2017-06-30] MEDS ORDERED: Oxycodone/Acetaminophen 5/325 mg Tab PO PRN (09:36)
[2017-06-30 09:45] LABS: BASO # 0.02 K/mm3 (0.0-2.0); BASO % 0.3 % (0.0-3.0); EOS # 0.2 (0.0-0.7); EOS % 2.1 % (1.5-5.0); GRAN # 6.08 (1.4-6.5); GRAN % 80.5 % (50.0-68.0); LYMPH # 0.5 (1.2-3.4); LYMPH % 6.1 % (22.0-35.0); MEAN CELL VOLUME 93.5 fl (80.0-105.0); MEAN CORPUSCULAR HEMOGLOBIN 31.4 pg (25.0-35.0); MEAN CORPUSCULAR HGB CONC 33.6 g/dl (31.0-37.0); MEAN PLATELET VOLUME 8.9 fl (7.0-11.0); MONO # 0.8 (0.1-0.6); RED CELL DISTRIBUTION WIDTH 12.8 % (11.5-14.5); WHITE BLOOD COUNT 7.6 10^3/ul (4.5-11.0)
--- NOTE | 2017-06-30 09:45 | CP.PCM.PN ---
Subjective - Date & Time of Evaluation Date of Evaluation: 06/30/17 Time of Evaluation: 09:42 - Subjective Subjective: Podiatry Progress Note for Dr. Reyes 61 y.o male seen at bedside with attending Dr. Reyes for left foot ulceration. Patient is seen resting comfortably in bed, in NAD, and AA0x3. Patient denies any acute overnight. Dressing is clean, dry, intact. Patient reports pain to the left foot, 10/10 throbbing pain. Patient denies n/v/sob/cp/ chills/d or f at this moment. Objective - Vital Signs/Intake and Output Vital Signs (last 24 hours): Temp Pulse Resp BP Pulse Ox 98.3 F 89 17 123/71 94 L 06/30/17 06:00 06/30/17 06:00 06/30/17 06:00 06/30/17 06:00 06/30/17 06:00 Intake and Output: 06/30/17 06/30/17 06:59 18:59 Intake Total 1225 0 Output Total 650 Balance 1225 -650 - Medications Medications: Current Medications Acetaminophen (Tylenol 325mg Tab) 975 mg PO ONCE PRN PRN Reason: Fever >100.4 F Last Admin: 06/29/17 12:28 Dose: 975 mg Clotrimazole (Lotrimin Af 1%) 0 ml TOP BID COUNT INCLUDES THE [facility] Last Admin: 06/30/17 09:29 Dose: Not Given Enoxaparin Sodium (Lovenox) 30 mg SC DAILY COUNT INCLUDES THE [facility] PRN Reason: Protocol Last Admin: 06/30/17 09:35 Dose: 30 mg Famotidine (Pepcid) 40 mg PO HS COUNT INCLUDES THE [facility] Last Admin: 06/29/17 22:37 Dose: 40 mg Sodium Chloride (Sodium Chloride 0.9%) 1,000 mls @ 150 mls/hr IV .Q6H40M COUNT INCLUDES THE [facility] Last Admin: 06/30/17 05:41 Dose: 150 mls/hr Vancomycin HCl (Vancomycin 500mg In Ns) 500 mg in 100 mls @ 200 mls/hr IVPB Q12 DLEORES PRN Reason: Protocol Last Admin: 06/29/17 23:25 Dose: 200 mls/hr Piperacillin Sod/Tazobactam Sod (Zosyn 3.375 In Ns 100ml) 100 mls @ 200 mls/hr IVPB Q6 DELORES PRN Reason: Protocol Stop: 06/30/17 18:29 Lactic Acid (Lac-Hydrin 12% Cream (140 G)) 1 ea TOP DAILY DELORES Last Admin: 06/30/17 09:29 Dose: Not Given Lorazepam (Ativan) 2 mg IVP Q6H PRN; Protocol PRN Reason: Anxiety Oxycodone/Acetaminophen (Percocet 5/325 Mg Tab) 1 tab PO Q4H PRN PRN Reason: Pain, moderate (4-7) Stop: 07/03/17 09:37 Silver Sulfadiazine (Silvadene 1% 25 Gm) 0 gm TP DAILY DELORES - Constitutional Appears: Well, Non-toxic, No Acute Distress - Extremities Exam Additional comments: Vasc: DP and PT 1/4 bilaterally, CFT < 3 seconds x 10 digits, temperature warm to warm, edema noted to the left forefoot Ortho: severe pain with palpation to the site surrounding ulceration; severe hallux valgus bilaterally, lateral deviation of the digits noted, hammertoe contractures 2-4 noted Neuro: protective and gross sensation intact bilaterally Derm: ulceration at the medial plantar aspect of the 1st MPJ of left foot measuring approximately 1.5 cm x 2cm x . 2 cm. Wound base is 50% fibrotic, 50% granular with fibrotic slough noted to the plantar aspect of the ulceration. Approximately .5 cc of purulence drainaged expressed from the proximal plantar aspect of the ulceration; mild undermining noted to the ulceration plantarly; no tunneling noted; Probe to bone noted in today's examination; erythema and malodorous. No streaking noted. Discoloration/hyperpigmentated skin noted to the LE bilaterally. Hyperkeratotic, nonviable detached skin at the peripheral of the ulceration is noted. Macerated and intact periwound. - Neurological Exam Neurological Exam: Alert, Awake, Oriented x3 - Psychiatric Exam Psychiatric exam: Normal Affect, Normal Mood Assessment and Plan - Assessment and Plan (Free Text) Assessment: 61 year old male with infected left foot ulceration and OM Plan: Patient examined and evaluated Labs, charts, vitals reviewed (afebrile, absent leukocytosis: 7.6) Discussed plan in detail with attending Dr. Reyes X-rays results- IMPRESSION: Subluxation at 1st through 3rd metatarsal phalangeal articulation with valgus deformity. Pencil like narrowing of distal aspect of 2nd metatarsal. Possible juxta-articular erosion of distal 1st metatarsal with overlying soft tissue swelling, possibly due to gout. Psoriatic arthritis may also be considered for the generalized articular abnormality at the MTP joints. Circumscribed lucent lesion of the proximal 3rd metatarsal diaphysis with an appearance suggestive of enchondroma though this is not pathognomonic. Followup advised. MRI results- IMPRESSION: Cortical erosion and bone marrow edema at the lateral aspect of the distal 1st metatarsal head suspicious for osteomyelitis. Well defined cystic lesion at the proximal portion of the 3rd metatarsal bone. Severe arthritic degenerative changes and subluxation at the metatarsal- phalangeal joints. Wound culture-pending results Ulceration cleansed with saline, dressed with xerform, dsd, and demi ID consulted- recommendations appreciated c/w abx ESR elevated 80 RF factor ordered- pending results Silvadene ordered- will apply with dressing change tomorrow Lac-Hydrin ordered- to be applied to LE PRN, avoid foot interspaces Lotrimin ordered- to be applied to LE as instructed Percocet for pain Surgical shoe ordered. Patient may WBAT to the heels in surgical shoe. Podiatry will continue to follow while in house
[2017-06-30 09:59] LABS: ALB/GLOB RATIO 0.9 (1.1-1.8); ALKALINE PHOSPHATASE 59 U/L (38-126); ALT/SGPT 29 U/L (7-56); AST/SGOT 24 U/L (17-59); BILIRUBIN,TOTAL 0.6 mg/dL (0.2-1.3); BLOOD UREA NITROGEN 16 mg/dL (7-21); CALCIUM 8.7 mg/dL (8.4-10.5); CARBON DIOXIDE 24 mmol/L (21-33); CHLORIDE 106 mmol/L (98-107); GFR AFRICAN-AMERICAN > 60; GLUCOSE,RANDOM 89 mg/dL (70-110); POTASSIUM 3.7 mmol/L (3.6-5.0); SODIUM 138 mmol/L (132-148); TOTAL PROTEIN 6.7 g/dL (5.8-8.3)
[2017-06-30] MEDS: Insulin Lispro (humaLOG) MEDIUM Coverage SC SCH ×3 (12:12→23:00)
[2017-06-30] MEDS: Vancomycin 500mg in NS 500 MG/100 ML BAG IVPB SCH (12:41)
--- NOTE | 2017-06-30 15:47 | CP.PCM.PN ---
<Laura Mcgraw - Last Filed: 06/30/17 15:42> Subjective - Date & Time of Evaluation Date of Evaluation: 06/30/17 Time of Evaluation: 15:42 - Subjective Subjective: Laura Mcgraw, PGY1, Medicine Progress Note for Dr Antonio: Patient seen and examined at bedside. No acute events overnight. Has minimal pain at left foot. Denies dizziness, palpitations, chest pain, fatigue, diaphoresis, syncope, nausea, vomiting, fever, chills. Objective - Vital Signs/Intake and Output Vital Signs (last 24 hours): Temp Pulse Resp BP Pulse Ox 98.3 F 89 17 123/71 94 L 06/30/17 06:00 06/30/17 12:36 06/30/17 06:00 06/30/17 12:36 06/30/17 06:00 Intake and Output: 06/30/17 06/30/17 06:59 18:59 Intake Total 1225 540 Output Total 1050 Balance 1225 -510 - Medications Medications: Current Medications Acetaminophen (Tylenol 325mg Tab) 975 mg PO ONCE PRN PRN Reason: Fever >100.4 F Last Admin: 06/29/17 12:28 Dose: 975 mg Aspirin (Aspirin Chewable) 81 mg PO DAILY [facility] Last Admin: 06/30/17 12:37 Dose: 81 mg Atorvastatin Calcium (Lipitor) 10 mg PO DIN [facility] Clotrimazole (Lotrimin Af 1%) 0 ml TOP BID [facility] Last Admin: 06/30/17 09:29 Dose: Not Given Enoxaparin Sodium (Lovenox) 30 mg SC DAILY [facility] PRN Reason: Protocol Last Admin: 06/30/17 09:35 Dose: 30 mg Famotidine (Pepcid) 40 mg PO HS [facility] Last Admin: 06/29/17 22:37 Dose: 40 mg Sodium Chloride (Sodium Chloride 0.9%) 1,000 mls @ 150 mls/hr IV .Q6H40M [facility] Last Admin: 06/30/17 05:41 Dose: 150 mls/hr Vancomycin HCl (Vancomycin 500mg In Ns) 500 mg in 100 mls @ 200 mls/hr IVPB Q12 [facility] PRN Reason: Protocol Last Admin: 06/30/17 12:41 Dose: 200 mls/hr Piperacillin Sod/Tazobactam Sod (Zosyn 3.375 In Ns 100ml) 100 mls @ 200 mls/hr IVPB Q6 [facility] PRN Reason: Protocol Stop: 06/30/17 18:29 Last Admin: 06/30/17 13:47 Dose: 200 mls/hr Insulin Human Lispro (Humalog Med) 0 units SC ACHS [facility] PRN Reason: Protocol Lactic Acid (Lac-Hydrin 12% Cream (140 G)) 1 ea TOP DAILY [facility] Last Admin: 06/30/17 09:29 Dose: Not Given Lorazepam (Ativan) 2 mg IVP Q6H PRN; Protocol PRN Reason: Anxiety Metoprolol Tartrate (Lopressor) 25 mg PO DAILY [facility] Last Admin: 06/30/17 12:36 Dose: 25 mg Oxycodone/Acetaminophen (Percocet 5/325 Mg Tab) 1 tab PO Q4H PRN PRN Reason: Pain, moderate (4-7) Stop: 07/03/17 09:37 Last Admin: 06/30/17 12:37 Dose: 1 tab Silver Sulfadiazine (Silvadene 1% 25 Gm) 0 gm TP DAILY [facility] - Labs Labs: 06/30/17 09:30 06/30/17 09:30 - Constitutional Appears: Non-toxic, No Acute Distress, Older Than Stated Age - Head Exam Head Exam: ATRAUMATIC, NORMOCEPHALIC - Eye Exam Eye Exam: EOMI, PERRL. absent: Scleral icterus Pupil Exam: PERRL - ENT Exam ENT Exam: Mucous Membranes Moist - Neck Exam Neck Exam: Full ROM - Respiratory Exam Respiratory Exam: Clear to Ausculation Bilateral. absent: Chest Wall Tenderness , Respiratory Distress - Cardiovascular Exam Cardiovascular Exam: RRR, +S1, +S2. absent: Murmur - GI/Abdominal Exam GI & Abdominal Exam: Soft, Normal Bowel Sounds. absent: Distended, Guarding, Rigid, Tenderness, Mass, Organomegaly - Extremities Exam Extremities Exam: absent: Calf Tenderness, Pedal Edema Additional comments: Left foot wound covered in dressing, changed by podiatry today - Back Exam Back Exam: NORMAL INSPECTION - Neurological Exam Neurological Exam: Alert, Awake, Oriented x3 - Psychiatric Exam Psychiatric exam: Normal Affect - Skin Skin Exam: Dry, Normal Color, Warm Assessment and Plan - Assessment and Plan (Free Text) Assessment: 61 years old male with PMH HTN?, presents for sepsis, dizziness/near syncope, HTN urgency, left foot ulcer, hypomagnesemia: Sepsis: - 2/2 osteomyelitis of left 1st metatarsal head. - Pt febrile 103.3 and tachycardic, given Tylenol in ED. Given Vanco and Zosyn x1 in ED. - Pt afebrile, no leukocytosis. - CXR neg for infiltrate, UA neg for infection - F/u wound and urine cultures - blood cultures 06/29 NTD - procal 0.42, ESR 80 and CRP >15, both elevated. - Left foot x ray shows subluxation at 1st through 3rd metatarsal phalangeal articulation with valgus deformity. Pencil like narrowing of distal aspect of 2nd metatarsal. Possible juxta-articular erosion of distal 1st metatarsal with overlying soft tissue swelling, possibly due to gout. Psoriatic arthritis may also be considered for the generalized articular abnormality at the MTP joints. Circumscribed lucent lesion of the proximal 3rd metatarsal diaphysis with an appearance suggestive of enchondroma though this is not pathognomonic. - MRI foot shows cortical erosion and bone marrow edema at lateral aspect of 1st metatarsal of head - s/o osteomyelitis. Well defined cystic lesion at proximal portion of 3rd metatarsal. Degenerative changes. severe arthritis and subluxation at metatarsal phalangeal joints. - Lactate 1.7. - Podiatry on board. Appreciate recs. Will follow up with podiatry if needs debridement of wound. - F/u ID consult (Dima). Appreciate recs. - Cont with IV Vanco and zosyn empirically. F/u wound culture for goal directed therapy. Diabetes: - Hgb A1C 6.9. - Started on ISS. - Will obtain good glycemic control in setting of osteomyelitis. - when discharged, will put on oral antidiabetics Metformin or Glipizide. Elevated/indeterminate troponins: - Trop 0.06->0.09->0.08 - Cardio on board (dianne). Appreciate recs - will await recs for cardiac cath? - Started on ASA, statin and beta isaac. - LDL 72, will maintain <70. Dizziness, resolved: - 2/2 likely orthostatic vs cardiac etiology (arrhythmias, valvular abnormalities, acute ischemia) vs neurogenic etiology - Echo, carotid US, EKG, Remote tele monitoring - Lipid panel, HGb A1C - Obtain Cardio consult. Hypomagnesemia: - 0.8 on admission, repleted yesterday, 1.4 today. Replaced with Mg 2 gm. Repeat Mg 2.0. - cont to monitor. HTN urgency: - BP elevated 183/84 on admission, currently 135/69. Started on Lopressor 25 mg PO daily. Cont to monitor. DVT ppx: Lovenox 30 mg SQ GI PPX: Pepcid Discussed with Dr Antonio. Laura Mcgraw, PGY1 <Piotr Antonio - Last Filed: 06/30/17 16:46> Objective - Vital Signs/Intake and Output Vital Signs (last 24 hours): Temp Pulse Resp BP Pulse Ox 98.3 F 89 17 123/71 94 L 06/30/17 06:00 06/30/17 12:36 06/30/17 06:00 06/30/17 12:36 06/30/17 06:00 Intake and Output: 06/30/17 06/30/17 06:59 18:59 Intake Total 1225 540 Output Total 1050 Balance 1225 -510 - Medications Medications: Current Medications Acetaminophen (Tylenol 325mg Tab) 975 mg PO ONCE PRN PRN Reason: Fever >100.4 F Last Admin: 06/29/17 12:28 Dose: 975 mg Aspirin (Aspirin Chewable) 81 mg PO DAILY [facility] Last Admin: 06/30/17 12:37 Dose: 81 mg Atorvastatin Calcium (Lipitor) 10 mg PO DIN [facility] Clotrimazole (Lotrimin Af 1%) 0 ml TOP BID [facility] Last Admin: 06/30/17 09:29 Dose: Not Given Enoxaparin Sodium (Lovenox) 30 mg SC DAILY [facility] PRN Reason: Protocol Last Admin: 06/30/17 09:35 Dose: 30 mg Famotidine (Pepcid) 40 mg PO HS [facility] Last Admin: 06/29/17 22:37 Dose: 40 mg Sodium Chloride (Sodium Chloride 0.9%) 1,000 mls @ 150 mls/hr IV .Q6H40M [facility] Last Admin: 06/30/17 05:41 Dose: 150 mls/hr Vancomycin HCl (Vancomycin 500mg In Ns) 500 mg in 100 mls @ 200 mls/hr IVPB Q12 [facility] PRN Reason: Protocol Last Admin: 06/30/17 12:41 Dose: 200 mls/hr Piperacillin Sod/Tazobactam Sod (Zosyn 3.375 In Ns 100ml) 100 mls @ 200 mls/hr IVPB Q6 [facility] PRN Reason: Protocol Stop: 06/30/17 18:29 Last Admin: 06/30/17 13:47 Dose: 200 mls/hr Insulin Human Lispro (Humalog Med) 0 units SC ACHS [facility] PRN Reason: Protocol Lactic Acid (Lac-Hydrin 12% Cream (140 G)) 1 ea TOP DAILY [facility] Last Admin: 06/30/17 09:29 Dose: Not Given Lorazepam (Ativan) 2 mg IVP Q6H PRN; Protocol PRN Reason: Anxiety Metoprolol Tartrate (Lopressor) 25 mg PO DAILY [facility] Last Admin: 06/30/17 12:36 Dose: 25 mg Oxycodone/Acetaminophen (Percocet 5/325 Mg Tab) 1 tab PO Q4H PRN PRN Reason: Pain, moderate (4-7) Stop: 07/03/17 09:37 Last Admin: 06/30/17 12:37 Dose: 1 tab Silver Sulfadiazine (Silvadene 1% 25 Gm) 0 gm TP DAILY [facility] - Labs Labs: 06/30/17 09:30 06/30/17 09:30 Attending/Attestation - Attestation I have personally seen and examined this patient.: Yes I have fully participated in the care of the patient.: Yes I have reviewed all pertinent clinical information, including history, physical exam and plan: Yes Notes (Text): 06/30/17 16:38 61 year old male with no known past medical history except ETOH use who is admitted for sepsis secondary to left foot infection. Left foot xray and MRI foot were reviewed as above + for osteomyelitis. ESR/CRP were elevated. Continue with iv antibiotics as per ID and wound care as per podiatry. Will follow up on cultures. He also presented with complaint of presyncopal episode and elevated blood pressure. CT head and carotid dopplers were reviewed. Echocardiogram was done with pending report. He has indeterminant cardiac enzymes although he denies any chest pain. Continue with aspirin, statin and lopressor. Will follow up with cardiology recommendations. Magnesium was repleted earlier this morning. Piotr Antonio MD Hospitalist.
--- NOTE | 2017-06-30 16:06 | US ---
PROCEDURE: Lower extremity NILSA exam HISTORY: Peripheral vascular disease with pain and ulceration. Diabetes. Smoker. PHYSICIAN(S): Santos Dent MD. FINDINGS: The exam is limited by calcified, noncompressible vessels at multiple levels. The resting ABIs are not obtainable. The brachial systolic pressures are symmetric. The PVR waveforms on the left are normal at all levels. The right PVR waveforms are normal proximally. The right calf PVR waveform is slightly decreased in amplitude compared to left. The right ankle and metatarsal waveforms are mildly blunted compared to the left. The findings are consistent with right SFA occlusive disease IMPRESSION: 1. Limited study due to calcified vessels. 2. Right SFA occlusive disease. 3. The PVR waveforms are normal at all levels on the left
[2017-06-30] MEDS: Silver Sulfadiazine 1% Cream (25 gm) TP SCH (17:27)
[2017-06-30] MEDS: Linezolid 600 mg in D5W 300 ml 600 MG/300 ML BAG IVPB SCH (21:57)
[2017-06-30] MEDS: Meropenem IV 1 gm in NS 50 ML IVPB SCH (21:59)
--- NOTE | 2017-07-01 01:18 | CON ---
CARDIOLOGY CONSULTATION DATE: REASON FOR CONSULTATION: Dizziness and lightheadedness. HISTORY OF PRESENT ILLNESS: The patient is a 61-year-old male who was initially admitted because of dizziness and lightheadedness, but denied any fainting. The patient denied any chest pain, shortness of breath or palpitation. He is unaware of any prior cardiac history. SOCIAL HISTORY: The patient is ETOH abuser. 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 MEDICATIONS: Aspirin 81 mg once a day, Ativan 2 mg intravenously q.6 hours, Lipitor 10 mg once a day, Lopressor 25 mg once a day, Lovenox 30 mg once a day, vancomycin 500 mg intravenously q.12 hours, and Zosyn 3.375 intravenously q.6 hours. REVIEW OF SYSTEMS: High fever was reported. The patient denies any vomiting or diarrhea. Although, he had a bowel movement while undergoing an echocardiogram and the patient attributed that to the fact that he had wait for a long time and could not control his urge to defecate. PHYSICAL EXAMINATION: GENERAL: The patient is a middle-aged male who does not appear to be in acute distress. VITAL SIGNS: Yesterday temperature on admission was 103.3, today 99.9, blood pressure 179/98, heart rate 76, and respirations 19. HEENT: Normocephalic. CHEST: Clear. HEART: S1 and S2 regular. ABDOMEN: Soft. EXTREMITIES: No edema. LABORATORY STUDIES: SMA-7 is within normal limits. Magnesium on admission was 0.8, repeat magnesium yesterday was 1.4. Hemoglobin and hematocrit 15.1 and 39, white count and platelet count are within normal limits. Alcohol is below 10. Urinalysis revealed moderate blood, negative leukocyte esterase. EKG revealed sinus tachycardia, rate of 109, left atrial enlargement. Head CT scan without contrast, non-specific white matter changes. Consider a followup CT or MRI for further evaluation. Carotid Doppler bilateral 20% to 29% proximal internal carotid artery stenosis on both vertebral arteries. Foot MRI cortical erosion and bone marrow edema of the lateral aspect of the distal first metatarsal head, suspicious of osteomyelitis. We will define cystic lesion at the proximal portion of the third metatarsal bone. Severe arthritic degenerative changes and subluxation of the metatarsophalangeal joint. This foot MRI is for the left foot. ASSESSMENT: 1. Rule out osteomyelitis of the left first metatarsal head. 2. Significant hypomagnesemia. 3. Rule out underlying sepsis. RECOMMENDATIONS: Continue current aspirin 81 mg once a day, Lipitor 10 mg once a day, Lopressor 25 mg once a day, Lovenox 30 mg once a day, continue IV vancomycin and IV Zosyn. I will review the echocardiograph study performed today. Nguyễn Lopez MD
[2017-07-01] MEDS: Sodium Chloride 0.9% 1,000 ML IV SCH ×3 (04:58→17:15)
[2017-07-01] MEDS: Meropenem IV 1 gm in NS 50 ML IVPB SCH ×2 (05:01→13:28)
[2017-07-01 06:47] LABS: ALKALINE PHOSPHATASE 50 U/L (38-126); ALT/SGPT 27 U/L (7-56); AST/SGOT 22 U/L (17-59); BILIRUBIN,TOTAL 0.4 mg/dL (0.2-1.3); BLOOD UREA NITROGEN 15 mg/dL (7-21); CALCIUM 8.1 mg/dL (8.4-10.5); CARBON DIOXIDE 23 mmol/L (21-33); CHLORIDE 105 mmol/L (98-107); GFR AFRICAN-AMERICAN > 60; GLUCOSE,RANDOM 108 mg/dL (70-110); MAGNESIUM 1.6 mg/dL (1.7-2.2); POTASSIUM 3.4 mmol/L (3.6-5.0); SODIUM 135 mmol/L (132-148)
[2017-07-01 07:02] LABS: ALB/GLOB RATIO 0.8 (1.1-1.8)
[2017-07-01 07:13] LABS: BASO # 0.03 K/mm3 (0.0-2.0); BASO % 0.7 % (0.0-3.0); EOS # 0.2 (0.0-0.7); EOS % 5.4 % (1.5-5.0); GRAN # 3.16 (1.4-6.5); GRAN % 70.6 % (50.0-68.0); HEMATOCRIT 37.3 % (42.0-52.0); LYMPH # 0.5 (1.2-3.4); LYMPH % 11.9 % (22.0-35.0); MEAN CELL VOLUME 93.3 fl (80.0-105.0); MEAN CORPUSCULAR HEMOGLOBIN 31.5 pg (25.0-35.0); MEAN CORPUSCULAR HGB CONC 33.8 g/dl (31.0-37.0); MEAN PLATELET VOLUME 9.3 fl (7.0-11.0); MONO # 0.5 (0.1-0.6); MONO % 11.4 % (1.0-6.0); RED CELL DISTRIBUTION WIDTH 12.6 % (11.5-14.5); WHITE BLOOD COUNT 4.5 10^3/ul (4.5-11.0)
--- NOTE | 2017-07-01 07:32 | CON ---
DATE: 06/30/2017 The patient is seen earlier this morning in room 261, bed 1. CHIEF COMPLAINT: Left foot infection times several days. HISTORY OF PRESENT ILLNESS: This is a 61-year-old with past medical history significant for alcohol abuse and hypertension. He was admitted to the Emergency Room. He was feeling dizzy and unable to walk. He states that he had 3 weeks of foot pain and has significant pain in the foot with low-grade fevers and occasional chills. No abdominal pain, diarrhea or constipation. No bright red blood per rectum. No melena. PAST MEDICAL HISTORY: Significant for hypertension, alcohol abuse and cigarette smoking. PAST SURGICAL HISTORY: Noncontributory. ALLERGIES: THE PATIENT HAS NO KNOWN ALLERGIES. MEDICATIONS AT HOME: No known medications at home. PHYSICAL EXAMINATION: GENERAL: The patient is seen in bed, in no acute distress. VITAL SIGNS: The patient did have a temperature of 103.3 yesterday in the Emergency Room, heart rate is 67, it went up to 108, respiratory rate of 18, was up to 20 with blood pressure of 123/70. HEENT: Unremarkable. NECK: Supple. LUNGS: Decreased breath sounds. HEART: Normal S1, S2. ABDOMEN: Soft, nontender. LABORATORY DATA: Reveals a white count of 7.3, hemoglobin of 13, and platelets of 225. The patient has 91% granulocytosis, blood gases are reviewed. BUN of 16, creatinine of 1.1, procalcitonin of 0.42. Urinalysis is noted. Alcohol level is less than 10. Microbiology reveals the blood cultures are no growth and foot cultures are pending. The patient had an MRI of the foot, which revealed to be positive for osteomyelitis and had an ultrasound of lower extremity, which reveals limited specific studies and right SFA occlusive disease. ASSESSMENT AND PLAN: This is a 61-year-old male with hypertension, alcohol abuse, and presenting with sepsis with fever and exam of the foot reveals a bunion, which appears to be significantly infected and sepsis of the left foot cellulitis with osteomyelitis as found on MRI. We will treat the patient with Zyvox since the patient's renal function is compromised with urinalysis with significant proteinuria and creatinine of 1.3 use vancomycin and we use meropenem. Discontinue the vancomycin. Pending Surgical, Podiatric evaluation and determination, vascular evaluation and evaluation of the arterial studies as per by Dr. Santos Dent. He will need prolonged antibiotic therapy, pending cultures of the foot and OR cultures. However, the patient will need prolonged antibiotics because of the osteomyelitis, which antibiotics will be determined by the organisms identified. We will treat with Zyvox and meropenem. Discontinue the vancomycin. We will also order an human immunodeficiency virus test because of his age, and hemoglobin A1c. We will also check on the culture results to make further recommendations. Ayaan Colindres MD
[2017-07-01] MEDS ORDERED: Potassium Chloride 20 mEq ER Tab PO STA (07:37)
[2017-07-01] MEDS ORDERED: Magnesium Sulfate 2 GM in Sodium Chloride 0.9% 100 ML IVPB ONE (07:38)
[2017-07-01] MEDS: Insulin Lispro (humaLOG) MEDIUM Coverage SC SCH ×4 (08:16→22:00)
[2017-07-01 08:39] VITALS: RESP 20
--- NOTE | 2017-07-01 09:39 | CARD ---
APPROVED REPORT EXAM: Two-dimensional and M-mode echocardiogram with Doppler and color Doppler. INDICATION DIZZINESS 2D DIMENSIONS Left Atrium (2D)4.0 (1.6-4.0cm)IVSd1.2 (0.7-1.1cm) LVDd4.7 (3.9-5.9cm)PWd1.2 (0.7-1.1cm) LVDs3.4 (2.5-4.0cm)FS (%) 27.8 % LVEF (%)53.0 (>50%) M-Mode DIMENSIONS Aortic Root2.80 (2.2-3.7cm)Aortic Cusp Exc.1.60 (1.5-2.0cm) Aortic Valve AoV Peak Yzxluykw586.0cm/s Mitral Valve MV E Chajuevy24.8cm/sMV A Nxhydnio02.9cm/sE/A ratio0.9 TDI E/Lateral E'0.0E/Medial E'0.0 Tricuspid Valve TR Peak Aahuctno639cg/sRAP [id number] Peak Gr.6mmHg [id number] LEFT VENTRICLE The left ventricle is normal size. There is normal left ventricular wall thickness. The left ventricular function is normal. The left ventricular ejection fraction is within the normal range. There is normal LV segmental wall motion. RIGHT VENTRICLE The right ventricle is normal size. ATRIA The left atrium size is normal. The right atrium size is normal. The interatrial septum is intact with no evidence for an atrial septal defect. AORTIC VALVE The aortic valve is normal in structure. MITRAL VALVE The mitral valve is normal in structure. TRICUSPID VALVE The tricuspid valve is normal in structure. There is trace tricuspid regurgitation. PULMONIC VALVE The pulmonary valve is normal in structure. GREAT VESSELS The aortic root is normal in size. PERICARDIAL EFFUSION There is no pericardial effusion. <Conclusion> The left ventricle is normal size. There is normal left ventricular wall thickness. The left ventricular function is normal.
[2017-07-01] MEDS: Ammonium Lactate 12% Cream (140 g) TOP SCH (09:49)
[2017-07-01] MEDS: Enoxaparin 30 mg Syringe SC SCH (09:50)
[2017-07-01] MEDS: Linezolid 600 mg in D5W 300 ml 600 MG/300 ML BAG IVPB SCH (09:51)
--- NOTE | 2017-07-01 10:36 | CARD ---
APPROVED REPORT EKG Measurement Heart [id number] CT 182P23 [id number] <Conclusion> Sinus tachycardia Possible Left atrial enlargement PRWP STTW changes c/w ischemia ASMI, age unknown Prolonged QTc.
--- NOTE | 2017-07-01 13:19 | CP.PCM.PN ---
Subjective - Date & Time of Evaluation Date of Evaluation: 07/01/17 Time of Evaluation: 12:55 - Subjective Subjective: Podiatry Progress Note for Dr. Reyes 61 y.o male seen at bedside with attending Dr. Reyes for left foot ulceration and OM. Patient is seen resting comfortably in bed, in NAD, and AA0x3. Patient denies any acute overnight. Dressing is clean and intact with strikethrough noted. During time of visitation patient reports tenderness to the L foot. Patient denies n/v/sob/cp/chills/d or f at this moment. Objective - Vital Signs/Intake and Output Vital Signs (last 24 hours): Temp Pulse Resp BP Pulse Ox 99.1 F 66 20 130/61 98 07/01/17 08:39 07/01/17 09:50 07/01/17 08:39 07/01/17 09:50 07/01/17 08:39 Intake and Output: 07/01/17 07/01/17 06:59 18:59 Intake Total 2275 Output Total 150 Balance 2125 - Medications Medications: Current Medications Acetaminophen (Tylenol 325mg Tab) 975 mg PO ONCE PRN PRN Reason: Fever >100.4 F Last Admin: 06/29/17 12:28 Dose: 975 mg Aspirin (Aspirin Chewable) 81 mg PO DAILY [facility] Last Admin: 07/01/17 09:48 Dose: 81 mg Atorvastatin Calcium (Lipitor) 10 mg PO DIN [facility] Last Admin: 06/30/17 17:27 Dose: 10 mg Clotrimazole (Lotrimin Af 1%) 0 ml TOP BID [facility] Last Admin: 06/30/17 17:26 Dose: Not Given Enoxaparin Sodium (Lovenox) 30 mg SC DAILY [facility] PRN Reason: Protocol Last Admin: 07/01/17 09:50 Dose: 30 mg Famotidine (Pepcid) 40 mg PO HS [facility] Last Admin: 06/30/17 21:57 Dose: 40 mg Sodium Chloride (Sodium Chloride 0.9%) 1,000 mls @ 150 mls/hr IV .Q6H40M [facility] Last Admin: 07/01/17 04:58 Dose: 150 mls/hr Meropenem (Merrem Iv 1 Gm Premix) 50 mls @ 100 mls/hr IVPB Q8 [facility] PRN Reason: Protocol Stop: 07/09/17 22:01 Last Admin: 07/01/17 05:01 Dose: 100 mls/hr Linezolid (Zyvox 600mg/300ml D5w) 600 mg in 300 mls @ 200 mls/hr IVPB Q12 [facility] PRN Reason: Protocol Stop: 07/09/17 22:01 Last Admin: 07/01/17 09:51 Dose: 200 mls/hr Insulin Human Lispro (Humalog Med) 0 units SC ACHS [facility] PRN Reason: Protocol Last Admin: 07/01/17 08:16 Dose: Not Given Lactic Acid (Lac-Hydrin 12% Cream (140 G)) 1 ea TOP DAILY [facility] Last Admin: 07/01/17 09:49 Dose: Not Given Lorazepam (Ativan) 2 mg IVP Q6H PRN; Protocol PRN Reason: Anxiety Metoprolol Tartrate (Lopressor) 25 mg PO DAILY [facility] Last Admin: 07/01/17 09:50 Dose: 25 mg Oxycodone/Acetaminophen (Percocet 5/325 Mg Tab) 1 tab PO Q4H PRN PRN Reason: Pain, moderate (4-7) Stop: 07/03/17 09:37 Last Admin: 06/30/17 12:37 Dose: 1 tab Silver Sulfadiazine (Silvadene 1% 25 Gm) 0 gm TP DAILY [facility] Last Admin: 06/30/17 17:27 Dose: Not Given - Labs Labs: 07/01/17 06:00 07/01/17 06:00 - Constitutional Appears: Non-toxic, No Acute Distress - Extremities Exam Additional comments: Vasc: DP and PT 1/4 bilaterally, CFT < 3 seconds x 10 digits, temperature warm to warm, edema noted to the left forefoot Ortho: severe pain with palpation to the site surrounding ulceration; severe hallux valgus bilaterally, lateral deviation of the digits noted, hammertoe contractures 2-4 noted Neuro: protective and gross sensation intact bilaterally Derm: ulceration at the medial plantar aspect of the 1st MPJ of left foot measuring approximately 1.5 cm x 2cm x . 2 cm. Wound base is 40% fibrotic, 60% granular with fibrotic slough noted to the plantar aspect of the ulceration. No purulence expressed from ulceration today; mild serous drainage noted; mild undermining noted to the ulceration plantarly; no tunneling noted; Probe to bone noted in today's examination; erythema and malodorous. No streaking noted. Discoloration/hyperpigmentated skin noted to the LE bilaterally. Hyperkeratotic , nonviable detached skin at the peripheral of the ulceration is noted. Macerated and intact periwound. - Neurological Exam Neurological Exam: Alert, Awake, Oriented x3 - Psychiatric Exam Psychiatric exam: Normal Affect, Normal Mood Assessment and Plan - Assessment and Plan (Free Text) Assessment: 61 year old male with infected left foot ulceration and OM Plan: Patient examined and evaluated with attending Labs, charts, vitals reviewed (afebrile, absent leukocytosis: 4.5) Discussed plan in detail with attending Dr. Reyes X-rays results- IMPRESSION: Subluxation at 1st through 3rd metatarsal phalangeal articulation with valgus deformity. Pencil like narrowing of distal aspect of 2nd metatarsal. Possible juxta-articular erosion of distal 1st metatarsal with overlying soft tissue swelling, possibly due to gout. Psoriatic arthritis may also be considered for the generalized articular abnormality at the MTP joints. Circumscribed lucent lesion of the proximal 3rd metatarsal diaphysis with an appearance suggestive of enchondroma though this is not pathognomonic. Followup advised. MRI results- IMPRESSION: Cortical erosion and bone marrow edema at the lateral aspect of the distal 1st metatarsal head suspicious for osteomyelitis. Well defined cystic lesion at the proximal portion of the 3rd metatarsal bone. Severe arthritic degenerative changes and subluxation at the metatarsal- phalangeal joints. Wound culture result- Group G Streptococcus Ulceration cleansed with saline, dressed with silvadene, dsd, and demi ID consulted- recommendations appreciated No surgical intervention during this time for OM. c/w abx ESR elevated 80 RF factor ordered- pending results Lac-Hydrin ordered- to be applied to LE PRN, avoid foot interspaces Lotrimin ordered- to be applied to LE as instructed Percocet for pain Surgical shoe ordered. Patient may WBAT to the heels in surgical shoe. Podiatry will continue to follow while in house
[2017-07-01] MEDS: Clotrimazole 1% Top Soln(10 ml) TOP SCH ×2 (13:28→17:14)
[2017-07-01] MEDS: Silver Sulfadiazine 1% Cream (25 gm) TP SCH (13:30)
--- NOTE | 2017-07-01 14:47 | CP.PCM.PN ---
<Laura Mcgraw - Last Filed: 07/01/17 14:43> Subjective - Date & Time of Evaluation Date of Evaluation: 07/01/17 Time of Evaluation: 14:43 - Subjective Subjective: Laura Mcgraw, PGY1, Medicine Progress Note for Dr Antonio: Patient seen and examined at bedside. No acute events overnight. Pt verbalizes minimal pain at the left foot OM site, states that he feels well and would like to go home. Denies fever, chills, nausea, vomiting, headache, cp, sob, abdominal pain, constipation, diarrhea. Pt states that his wound dressing is changed by podiatry every day in the hospital. Objective - Vital Signs/Intake and Output Vital Signs (last 24 hours): Temp Pulse Resp BP Pulse Ox 99.1 F 66 20 130/61 98 07/01/17 08:39 07/01/17 09:50 07/01/17 08:39 07/01/17 09:50 07/01/17 08:39 Intake and Output: 07/01/17 07/01/17 06:59 18:59 Intake Total 2275 480 Output Total 150 375 Balance 2125 105 - Medications Medications: Current Medications Acetaminophen (Tylenol 325mg Tab) 975 mg PO ONCE PRN PRN Reason: Fever >100.4 F Last Admin: 06/29/17 12:28 Dose: 975 mg Aspirin (Aspirin Chewable) 81 mg PO DAILY [facility] Last Admin: 07/01/17 09:48 Dose: 81 mg Atorvastatin Calcium (Lipitor) 10 mg PO DIN [facility] Last Admin: 06/30/17 17:27 Dose: 10 mg Clotrimazole (Lotrimin Af 1%) 0 ml TOP BID [facility] Last Admin: 07/01/17 13:28 Dose: Not Given Enoxaparin Sodium (Lovenox) 30 mg SC DAILY [facility] PRN Reason: Protocol Last Admin: 07/01/17 09:50 Dose: 30 mg Famotidine (Pepcid) 40 mg PO HS [facility] Last Admin: 06/30/17 21:57 Dose: 40 mg Sodium Chloride (Sodium Chloride 0.9%) 1,000 mls @ 150 mls/hr IV .Q6H40M [facility] Last Admin: 07/01/17 13:30 Dose: 150 mls/hr Meropenem (Merrem Iv 1 Gm Premix) 50 mls @ 100 mls/hr IVPB Q8 [facility] PRN Reason: Protocol Stop: 07/09/17 22:01 Last Admin: 07/01/17 13:28 Dose: 100 mls/hr Linezolid (Zyvox 600mg/300ml D5w) 600 mg in 300 mls @ 200 mls/hr IVPB Q12 [facility] PRN Reason: Protocol Stop: 07/09/17 22:01 Last Admin: 07/01/17 09:51 Dose: 200 mls/hr Insulin Human Lispro (Humalog Med) 0 units SC ACHS [facility] PRN Reason: Protocol Last Admin: 07/01/17 13:27 Dose: Not Given Lactic Acid (Lac-Hydrin 12% Cream (140 G)) 1 ea TOP DAILY [facility] Last Admin: 07/01/17 09:49 Dose: Not Given Lorazepam (Ativan) 2 mg IVP Q6H PRN; Protocol PRN Reason: Anxiety Metoprolol Tartrate (Lopressor) 25 mg PO DAILY [facility] Last Admin: 07/01/17 09:50 Dose: 25 mg Oxycodone/Acetaminophen (Percocet 5/325 Mg Tab) 1 tab PO Q4H PRN PRN Reason: Pain, moderate (4-7) Stop: 07/03/17 09:37 Last Admin: 06/30/17 12:37 Dose: 1 tab Silver Sulfadiazine (Silvadene 1% 25 Gm) 0 gm TP DAILY [facility] Last Admin: 07/01/17 13:30 Dose: Not Given - Labs Labs: 07/01/17 06:00 07/01/17 06:00 - Constitutional Appears: Non-toxic, No Acute Distress, Older Than Stated Age - Head Exam Head Exam: ATRAUMATIC, NORMOCEPHALIC - Eye Exam Eye Exam: EOMI, PERRL. absent: Scleral icterus Pupil Exam: PERRL - ENT Exam ENT Exam: Mucous Membranes Moist - Respiratory Exam Respiratory Exam: Clear to Ausculation Bilateral. absent: Accessory Muscle Use , Respiratory Distress - Cardiovascular Exam Cardiovascular Exam: RRR, +S1, +S2. absent: Murmur - GI/Abdominal Exam GI & Abdominal Exam: Soft, Normal Bowel Sounds. absent: Distended, Guarding, Tenderness, Mass, Organomegaly, Rebound - Back Exam Back Exam: NORMAL INSPECTION - Neurological Exam Neurological Exam: Alert, Awake, Oriented x3 - Psychiatric Exam Psychiatric exam: Normal Affect - Skin Skin Exam: Dry, Normal Color, Warm Assessment and Plan - Assessment and Plan (Free Text) Assessment: 61 years old male with PMH HTN?, presents for sepsis, dizziness/near syncope, HTN urgency, left foot ulcer, hypomagnesemia: Sepsis: - 2/2 osteomyelitis of left 1st metatarsal head. - Pt febrile 103.3 and tachycardic, given Tylenol in ED. Given Vanco and Zosyn x1 in ED. - Pt afebrile, no leukocytosis. - wound culture, left foot grew Group G strep (no sensitivities done). Spoke to microbiology tech: said most Group G Strep are sensitive to PCN. - CXR neg for infiltrate, UA neg for infection, urine culture shows contamination. - blood cultures 06/29 (2/2) NTD - procal 0.42, ESR 80 and CRP >15, both elevated. - Left foot x ray shows subluxation at 1st through 3rd metatarsal phalangeal articulation with valgus deformity. Pencil like narrowing of distal aspect of 2nd metatarsal. Possible juxta-articular erosion of distal 1st metatarsal with overlying soft tissue swelling, possibly due to gout. Psoriatic arthritis may also be considered for the generalized articular abnormality at the MTP joints. Circumscribed lucent lesion of the proximal 3rd metatarsal diaphysis with an appearance suggestive of enchondroma though this is not pathognomonic. - MRI foot shows cortical erosion and bone marrow edema at lateral aspect of 1st metatarsal of head - s/o osteomyelitis. Well defined cystic lesion at proximal portion of 3rd metatarsal. Degenerative changes. severe arthritis and subluxation at metatarsal phalangeal joints. - Lactate 1.7 on admission. - Podiatry on board. Appreciate recs. Recommends no surgical intervention. + special shoes to go home on. - ID Dr Colindres, on board. Appreciate recs. Switched abx to Merrem and Zyvox (discontinued Vanco to preserve renal function Cr 1.3). Will f/u with Id recs regarding the antibiotics to sent pt home on and the duration of therapy (given the wound culture shows Group G Strep). Will await if patient needs PICC line for IV abx at home. - Cont with IV Merrem and Zyvox. Will await ID recs for goal directed therapy. Right SFA Occlusive disease: - Arterial LE doppler shows R SFA occulsive disease. - Carotid US shows b/l 20-39% in proximal ICA. - Dr Dent consulted. will f/u recs. Diabetes: - Hgb A1C 6.9. - Started on ISS. BG 101-138. - Will obtain good glycemic control in setting of osteomyelitis. - when discharged, will put on oral antidiabetics Metformin or Glipizide. Elevated/indeterminate troponins: - Trop 0.06->0.09->0.08 - Cardio on board (dianne). Appreciate recs - will await recs for cardiac cath/stress test?? - Cont with ASA, statin and beta isaac. - LDL 72, will maintain <70. Dizziness, resolved: - 2/2 likely orthostatic vs cardiac etiology (arrhythmias, valvular abnormalities, acute ischemia) vs neurogenic etiology - Echo, carotid US, EKG, Remote tele monitoring - Lipid panel, HGb A1C - Dr Lopez on board. Appreciate recs. Hypomagnesemia: - 0.8 on admission, repleted. - Mg 1.6 today, repleted. - cont to monitor. Hypokalemia: - K 3.4 today, repleted. HTN urgency: - BP elevated 183/84 on admission, currently 117/62. Cont with Lopressor 25 mg PO daily. Cont to monitor. DVT ppx: Lovenox 30 mg SQ GI PPX: Pepcid Dispo: Lives at a 2 family house by himself, and neighbors. 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 Discussed with Dr Antonio. Laura Mcgraw, PGY1 <Piotr Antonio - Last Filed: 07/02/17 07:17> Objective - Vital Signs/Intake and Output Vital Signs (last 24 hours): Temp Pulse Resp BP Pulse Ox 99 F 65 20 146/75 98 07/01/17 16:00 07/01/17 16:00 07/01/17 16:00 07/01/17 16:00 07/01/17 16:00 Intake and Output: 07/02/17 07/02/17 06:59 18:59 Intake Total 2270 Output Total 400 Balance 1870 - Medications Medications: Current Medications Acetaminophen (Tylenol 325mg Tab) 975 mg PO ONCE PRN PRN Reason: Fever >100.4 F Last Admin: 06/29/17 12:28 Dose: 975 mg Aspirin (Aspirin Chewable) 81 mg PO DAILY [facility] Last Admin: 07/01/17 09:48 Dose: 81 mg Atorvastatin Calcium (Lipitor) 10 mg PO DIN [facility] Last Admin: 07/01/17 17:14 Dose: 10 mg Clotrimazole (Lotrimin Af 1%) 0 ml TOP BID [facility] Last Admin: 07/01/17 17:14 Dose: Not Given Enoxaparin Sodium (Lovenox) 30 mg SC DAILY [facility] PRN Reason: Protocol Last Admin: 07/01/17 09:50 Dose: 30 mg Famotidine (Pepcid) 40 mg PO HS [facility] Last Admin: 07/01/17 22:48 Dose: 40 mg Sodium Chloride (Sodium Chloride 0.9%) 1,000 mls @ 150 mls/hr IV .Q6H40M [facility] Last Admin: 07/02/17 01:44 Dose: 150 mls/hr Ceftriaxone Sodium (Rocephin 2 Gm Ivpb) 2 gm in 100 mls @ 100 mls/hr IVPB DAILY [facility] PRN Reason: Protocol Stop: 07/16/17 10:01 Insulin Human Lispro (Humalog Med) 0 units SC ACHS [facility] PRN Reason: Protocol Last Admin: 07/01/17 22:00 Dose: Not Given Lactic Acid (Lac-Hydrin 12% Cream (140 G)) 1 ea TOP DAILY [facility] Last Admin: 07/01/17 09:49 Dose: Not Given Lorazepam (Ativan) 2 mg IVP Q6H PRN; Protocol PRN Reason: Anxiety Magnesium Chloride (Slow-Mag) 64 mg PO DAILY [facility] Metoprolol Tartrate (Lopressor) 25 mg PO DAILY [facility] Last Admin: 07/01/17 09:50 Dose: 25 mg Oxycodone/Acetaminophen (Percocet 5/325 Mg Tab) 1 tab PO Q4H PRN PRN Reason: Pain, moderate (4-7) Stop: 07/03/17 09:37 Last Admin: 06/30/17 12:37 Dose: 1 tab Potassium Chloride (K-Dur 20 Meq Er Tab) 20 meq PO BRK [facility] Silver Sulfadiazine (Silvadene 1% 25 Gm) 0 gm TP DAILY [facility] Last Admin: 07/01/17 13:30 Dose: Not Given - Labs Labs: 07/01/17 06:00 07/01/17 06:00 Attending/Attestation - Attestation I have personally seen and examined this patient.: Yes I have fully participated in the care of the patient.: Yes I have reviewed all pertinent clinical information, including history, physical exam and plan: Yes Notes (Text): 07/02/17 07:15 61 year old male with no known past medical history except ETOH use who is admitted for sepsis secondary to left foot infection. Left foot xray and MRI foot were reviewed as above + for osteomyelitis. ESR/CRP were elevated. Continue with iv antibiotics as per ID and wound care as per podiatry. Wound culture is growing Group G Strept. He also presented with complaint of presyncopal episode and elevated blood pressure. CT head and carotid dopplers were reviewed. Echocardiogram was done with pending report. He has indeterminant cardiac enzymes although he denies any chest pain. Continue with aspirin, statin and lopressor. Will follow up with cardiology recommendations. Arterial doppler showed SFA occlusive disease. IR evaluation was requested. Will replete and repeat lytes. Piotr Antonio MD Hospitalist.
[2017-07-01] MEDS: Magnesium Chloride 64 mg ER Tab PO SCH (17:30)
--- NOTE | 2017-07-01 20:19 | PN ---
DATE: 07/01/2017 SUBJECTIVE: The patient is in bed, in no acute distress, nontoxic. OBJECTIVE: VITAL SIGNS: Temperature is 99, blood pressure is 130/60, respiratory rate 20, heart rate of 66. HEENT: Unremarkable. NECK: Supple. LUNGS: Have decreased breath sounds. HEART: Normal S1, S2. ABDOMEN: Soft, nontender. LABORATORY EXAMINATION: Reveals a white count of 4.5, hemoglobin of 12, platelets of 208. Chemistries reveal the BUN of 15, creatinine of 1.0. Procalcitonin is noted at 0.42. Urinalysis is noted, and examination of the left foot cultures are group G strep with heavy growth. Blood cultures are negative, and urine cultures multiple species with contamination. Review of orders reveals the patient to be on meropenem and linezolid. ASSESSMENT AND PLAN: A 61-year-old male with hypertension, alcohol abuse, presenting with sepsis with group G streptococcal cellulitis and osteomyelitis. We will discontinue the vancomycin and discontinue the linezolid. Discontinue the meropenem. We will treat with ceftriaxone 2 g IV q.24 hours times 4-6 weeks. May give approximately half of that intravenously and switch to p.o. based on sedimentation rate, C-reactive protein, repeat imaging in response. We will follow with you. Review of orders reveals the human immunodeficiency virus results are pending, and the patient is now on ceftriaxone 2 g IV q.24 hours. Ayaan Colindres MD
--- NOTE | 2017-07-01 22:26 | PN ---
DATE: FOLLOWUP SUBJECTIVE: The patient denies any chest pain or shortness of breath. PHYSICAL EXAMINATION: VITAL SIGNS: Blood pressure 146/75, heart rate 65, temperature 99, respirations 20. HEENT: Normocephalic. CHEST: Clear. HEART: S1 and S2, regular. ABDOMEN: Soft. EXTREMITIES: Dressings applied to the left foot. LABORATORIES: Today's SMA-7 is within normal limits except for potassium of 3.4. Hemoglobin and hematocrit 12.6 and 37.3. White count and platelet count are within normal limits. Arterial Doppler of lower extremity revealed limited study due to calcified disease, right superficial femoral artery occlusive disease. Carotid Doppler of bilateral 20-39% proximal internal carotid artery stenosis, antegrade flow in both vertebral arteries. Echocardiogram, normal ventricular size, wall thickness, and systolic function. Left foot wound culture is positive for group G streptococcus. Blood cultures are negative after 48 hours. ASSESSMENT: 1. Dizziness. 2. Hypertension. 3. Peripheral vascular disease. 4. Hypokalemia. 5. Rule out osteomyelitis of the left first metatarsal head. 6. Hypomagnesemia. Today's magnesium level is 1.6. RECOMMENDATIONS: Continue aspirin 81 mg once a day, Lipitor 10 mg once a day, Lopressor 25 mg once a day, Lovenox 30 mg once a day, K-Dur 20 mEq was given today as well as intravenous magnesium sulfate at 2 g. Start K-Dur 20 mEq orally once a day and Slow-Mag at 1 tablet daily. Nguyễn Lopez MD
[2017-07-02] MEDS: Sodium Chloride 0.9% 1,000 ML IV SCH ×5 (01:44→22:06)
[2017-07-02 07:05] LABS: BASO # 0.02 K/mm3 (0.0-2.0); BASO % 0.6 % (0.0-3.0); EOS # 0.2 (0.0-0.7); EOS % 5.4 % (1.5-5.0); GRAN # 1.94 (1.4-6.5); GRAN % 61.9 % (50.0-68.0); HEMATOCRIT 36.5 % (42.0-52.0); LYMPH # 0.4 (1.2-3.4); LYMPH % 12.4 % (22.0-35.0); MEAN CELL VOLUME 91.9 fl (80.0-105.0); MEAN CORPUSCULAR HEMOGLOBIN 31.2 pg (25.0-35.0); MEAN PLATELET VOLUME 8.5 fl (7.0-11.0); MONO # 0.6 (0.1-0.6); MONO % 19.7 % (1.0-6.0); RED CELL DISTRIBUTION WIDTH 12.4 % (11.5-14.5); WHITE BLOOD COUNT 3.1 10^3/ul (4.5-11.0)
[2017-07-02 07:39] LABS: ALB/GLOB RATIO 0.8 (1.1-1.8); ALKALINE PHOSPHATASE 51 U/L (38-126); ALT/SGPT 27 U/L (7-56); AST/SGOT 31 U/L (17-59); BILIRUBIN,TOTAL 0.4 mg/dL (0.2-1.3); BLOOD UREA NITROGEN 9 mg/dL (7-21); CALCIUM 8.1 mg/dL (8.4-10.5); CARBON DIOXIDE 24 mmol/L (21-33); CHLORIDE 105 mmol/L (98-107); GFR AFRICAN-AMERICAN > 60; GLUCOSE,RANDOM 101 mg/dL (70-110); POTASSIUM 3.6 mmol/L (3.6-5.0); SODIUM 136 mmol/L (132-148); TOTAL PROTEIN 6.2 g/dL (5.8-8.3)
[2017-07-02] MEDS: Insulin Lispro (humaLOG) MEDIUM Coverage SC SCH ×4 (07:46→22:05)
--- NOTE | 2017-07-02 08:52 | CP.PCM.PN ---
<Laura Mcgraw - Last Filed: 07/02/17 12:31> Subjective - Date & Time of Evaluation Date of Evaluation: 07/02/17 Time of Evaluation: 08:47 - Subjective Subjective: Laura Mcgraw, PGY1, Medicine Progress Note for Dr Antonio: Patient seen and examined at bedside. No acute events overnight. Denies foot pain, fever, chills, nausea, vomiting, dizziness, abdominal pain, diarrhea. Pt tolerating PO diet well. Pt wants to know how he will be able to work at his job ([employer]) with PICC line in place. will refer to comp field case manager. Objective - Vital Signs/Intake and Output Vital Signs (last 24 hours): Temp Pulse Resp BP Pulse Ox 98.1 F 91 H 20 160/85 H 100 07/02/17 07:27 07/02/17 07:27 07/02/17 07:27 07/02/17 07:27 07/02/17 07:27 Intake and Output: 07/02/17 07/02/17 06:59 18:59 Intake Total 2270 Output Total 400 Balance 1870 - Medications Medications: Current Medications Acetaminophen (Tylenol 325mg Tab) 975 mg PO ONCE PRN PRN Reason: Fever >100.4 F Last Admin: 06/29/17 12:28 Dose: 975 mg Aspirin (Aspirin Chewable) 81 mg PO DAILY [facility] Last Admin: 07/01/17 09:48 Dose: 81 mg Atorvastatin Calcium (Lipitor) 10 mg PO DIN [facility] Last Admin: 07/01/17 17:14 Dose: 10 mg Clotrimazole (Lotrimin Af 1%) 0 ml TOP BID [facility] Last Admin: 07/01/17 17:14 Dose: Not Given Enoxaparin Sodium (Lovenox) 30 mg SC DAILY [facility] PRN Reason: Protocol Last Admin: 07/01/17 09:50 Dose: 30 mg Famotidine (Pepcid) 40 mg PO HS [facility] Last Admin: 07/01/17 22:48 Dose: 40 mg Sodium Chloride (Sodium Chloride 0.9%) 1,000 mls @ 150 mls/hr IV .Q6H40M [facility] Last Admin: 07/02/17 01:44 Dose: 150 mls/hr Ceftriaxone Sodium (Rocephin 2 Gm Ivpb) 2 gm in 100 mls @ 100 mls/hr IVPB DAILY [facility] PRN Reason: Protocol Stop: 07/16/17 10:01 Insulin Human Lispro (Humalog Med) 0 units SC ACHS [facility] PRN Reason: Protocol Last Admin: 07/02/17 07:46 Dose: Not Given Lactic Acid (Lac-Hydrin 12% Cream (140 G)) 1 ea TOP DAILY [facility] Last Admin: 07/01/17 09:49 Dose: Not Given Lorazepam (Ativan) 2 mg IVP Q6H PRN; Protocol PRN Reason: Anxiety Magnesium Chloride (Slow-Mag) 64 mg PO DAILY [facility] Metoprolol Tartrate (Lopressor) 25 mg PO DAILY [facility] Last Admin: 07/01/17 09:50 Dose: 25 mg Oxycodone/Acetaminophen (Percocet 5/325 Mg Tab) 1 tab PO Q4H PRN PRN Reason: Pain, moderate (4-7) Stop: 07/03/17 09:37 Last Admin: 06/30/17 12:37 Dose: 1 tab Potassium Chloride (K-Dur 20 Meq Er Tab) 20 meq PO BRK [facility] Silver Sulfadiazine (Silvadene 1% 25 Gm) 0 gm TP DAILY [facility] Last Admin: 07/01/17 13:30 Dose: Not Given - Labs Labs: 07/02/17 06:30 07/02/17 06:30 - Constitutional Appears: Non-toxic, No Acute Distress, Older Than Stated Age - Head Exam Head Exam: ATRAUMATIC, NORMOCEPHALIC - Eye Exam Eye Exam: EOMI, PERRL Pupil Exam: PERRL - ENT Exam ENT Exam: Mucous Membranes Moist - Respiratory Exam Respiratory Exam: Clear to Ausculation Bilateral. absent: Accessory Muscle Use , Chest Wall Tenderness, Decreased Breath Sounds, Respiratory Distress - Cardiovascular Exam Cardiovascular Exam: RRR, +S1, +S2. absent: Murmur - GI/Abdominal Exam GI & Abdominal Exam: Soft, Normal Bowel Sounds. absent: Distended, Tenderness, Mass, Organomegaly, Rebound - Extremities Exam Extremities Exam: absent: Calf Tenderness Additional comments: left foot cellulitis and OM, covered in dressing, c/d/i - Back Exam Back Exam: NORMAL INSPECTION - Neurological Exam Neurological Exam: Alert, Awake, Oriented x3 - Psychiatric Exam Psychiatric exam: Normal Affect, Normal Mood - Skin Skin Exam: Dry, Normal Color, Warm Assessment and Plan - Assessment and Plan (Free Text) Assessment: 61 years old male with PMH HTN?, presents for sepsis, dizziness/near syncope, HTN urgency, left foot ulcer, hypomagnesemia: Sepsis: - 2/2 osteomyelitis of left 1st metatarsal head. - Pt febrile 103.3 and tachycardic, given Tylenol in ED. Given Vanco and Zosyn x1 in ED. - Pt afebrile, no leukocytosis currently. - wound culture, left foot grew Group G strep (no sensitivities done). Spoke to microbiology tech: said most Group G Strep are sensitive to PCN. - CXR neg for infiltrate, UA neg for infection, urine culture shows contamination. - blood cultures 06/29 (2/2) NTD - procal 0.42, ESR 80 and CRP >15, both elevated. - Left foot x ray shows subluxation at 1st through 3rd metatarsal phalangeal articulation with valgus deformity. Pencil like narrowing of distal aspect of 2nd metatarsal. Possible juxta-articular erosion of distal 1st metatarsal with overlying soft tissue swelling, possibly due to gout. Psoriatic arthritis may also be considered for the generalized articular abnormality at the MTP joints. Circumscribed lucent lesion of the proximal 3rd metatarsal diaphysis with an appearance suggestive of enchondroma though this is not pathognomonic. - MRI foot shows cortical erosion and bone marrow edema at lateral aspect of 1st metatarsal of head - s/o osteomyelitis. Well defined cystic lesion at proximal portion of 3rd metatarsal. Degenerative changes. severe arthritis and subluxation at metatarsal phalangeal joints. - Lactate 1.7 on admission. - Podiatry on board. Appreciate recs. Recommends no surgical intervention. + special shoes to go home on. - ID Dr Colindres, on board. Recommends Ceftriaxone 2 gm IV daily x 4-6 weeks. Can be switched midway to PO abx, depending on repeat CRP/ESR and imaging. Appreciate recs. - Put in for PICC line insertion. Switched abx to Merrem and Zyvox (discontinued Vanco to preserve renal function Cr 1.3). Will f/u with Id recs regarding the antibiotics to sent pt home on and the duration of therapy (given the wound culture shows Group G Strep). Will await if patient needs PICC line for IV abx at home. - Start IV ceftriaxone D1, per ID. Right SFA Occlusive disease: - Arterial LE doppler shows R SFA occulsive disease. - Carotid US shows b/l 20-39% in proximal ICA. - Dr Dent consulted. Will f/u recs. Possibly, can insert PICC line simultaneously. Diabetes: - Hgb A1C 6.9. - Started on ISS. BG 103-166. - Obtain good glycemic control in setting of osteomyelitis. - when discharged, will put on oral antidiabetics Metformin or Glipizide. Elevated/indeterminate troponins: - Trop 0.06->0.09->0.08 - Cardio on board (dianne). Appreciate recs - will await recs for cardiac cath/stress test?? - Cont with ASA, statin and beta isaac. - LDL 72, will maintain <70. Dizziness, resolved: - 2/2 likely orthostatic vs cardiac etiology (arrhythmias, valvular abnormalities, acute ischemia) vs neurogenic etiology - Echo shows EF 53%, norml LF size/thickness. no valcular abnormalitis. - carotid US shows b/l 20-39% stenosis in proximal ICA. - EKG shows S tachy, 109, prolonged QTc 479. - Remote tele monitoring - Dr Lopez on board. Appreciate recs. Started daily K dur 20 eq and slow mag 1 gm daily. Hypomagnesemia: - 0.8 on admission, repleted. - started on Slow Mag 1 gm daily. - cont to monitor. Hypokalemia: -resolved, started on daily K dur 20 meq as per Cardio. HTN urgency: - BP elevated 183/84 on admission, currently 117/62. Cont with Lopressor 25 mg PO daily. Cont to monitor. DVT ppx: Lovenox 30 mg SQ GI PPX: Pepcid Dispo: Lives at a 2 family house by himself, and neighbors. 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 Discussed with Dr Antonio. Laura Mcgraw, PGY1 <Piotr Anotnio - Last Filed: 07/02/17 14:56> Objective - Vital Signs/Intake and Output Vital Signs (last 24 hours): Temp Pulse Resp BP Pulse Ox 98.1 F 91 H 20 160/85 H 100 07/02/17 07:27 07/02/17 09:59 07/02/17 07:27 07/02/17 09:59 07/02/17 07:27 Intake and Output: 07/02/17 07/02/17 06:59 18:59 Intake Total 2270 480 Output Total 400 Balance 1870 480 - Medications Medications: Current Medications Acetaminophen (Tylenol 325mg Tab) 975 mg PO ONCE PRN PRN Reason: Fever >100.4 F Last Admin: 06/29/17 12:28 Dose: 975 mg Aspirin (Aspirin Chewable) 81 mg PO DAILY [facility] Last Admin: 07/02/17 09:58 Dose: 81 mg Atorvastatin Calcium (Lipitor) 10 mg PO DIN [facility] Last Admin: 07/01/17 17:14 Dose: 10 mg Clotrimazole (Lotrimin Af 1%) 0 ml TOP BID [facility] Last Admin: 07/02/17 10:01 Dose: Not Given Enoxaparin Sodium (Lovenox) 30 mg SC DAILY [facility] PRN Reason: Protocol Last Admin: 07/02/17 10:01 Dose: 30 mg Famotidine (Pepcid) 40 mg PO HS [facility] Last Admin: 07/01/17 22:48 Dose: 40 mg Sodium Chloride (Sodium Chloride 0.9%) 1,000 mls @ 150 mls/hr IV .Q6H40M [facility] Last Admin: 07/02/17 10:05 Dose: 150 mls/hr Ceftriaxone Sodium (Rocephin 2 Gm Ivpb) 2 gm in 100 mls @ 100 mls/hr IVPB DAILY [facility] PRN Reason: Protocol Stop: 07/16/17 10:01 Last Admin: 07/02/17 10:03 Dose: 100 mls/hr Insulin Human Lispro (Humalog Med) 0 units SC ACHS [facility] PRN Reason: Protocol Last Admin: 07/02/17 14:24 Dose: Not Given Lactic Acid (Lac-Hydrin 12% Cream (140 G)) 1 ea TOP DAILY [facility] Last Admin: 07/02/17 09:59 Dose: 1 applic Lorazepam (Ativan) 2 mg IVP Q6H PRN; Protocol PRN Reason: Anxiety Magnesium Chloride (Slow-Mag) 64 mg PO BID [facility] Metoprolol Tartrate (Lopressor) 25 mg PO DAILY [facility] Last Admin: 07/02/17 09:59 Dose: 25 mg Oxycodone/Acetaminophen (Percocet 5/325 Mg Tab) 1 tab PO Q4H PRN PRN Reason: Pain, moderate (4-7) Stop: 07/03/17 09:37 Last Admin: 06/30/17 12:37 Dose: 1 tab Potassium Chloride (K-Dur 20 Meq Er Tab) 20 meq PO BRK [facility] Last Admin: 07/02/17 09:59 Dose: 20 meq Silver Sulfadiazine (Silvadene 1% 25 Gm) 0 gm TP DAILY [facility] Last Admin: 07/02/17 10:03 Dose: Not Given - Labs Labs: 07/02/17 06:30 07/02/17 06:30 Attending/Attestation - Attestation I have personally seen and examined this patient.: Yes I have fully participated in the care of the patient.: Yes I have reviewed all pertinent clinical information, including history, physical exam and plan: Yes Notes (Text): 07/02/17 14:54 61 year old male with no known past medical history except ETOH use who is admitted for sepsis secondary to left foot infection. Left foot xray and MRI foot were reviewed as above + for osteomyelitis. Continue with iv antibiotics as per ID and wound care as per podiatry. Wound culture is growing Group G Strept. Will request for picc line for alf antibiotics. He also presented with complaint of presyncopal episode and elevated blood pressure. CT head, echocardiogram and carotid dopplers were reviewed. Cardiology is following. Continue with aspirin, statin and lopressor. Arterial doppler showed SFA occlusive disease. IR evaluation was requested; no plan for surgical intervention. Piotr Antonio MD Hospitalist.
[2017-07-02 09:20] LABS: MAGNESIUM 1.6 mg/dL (1.7-2.2); PHOSPHOROUS 2.4 mg/dL (2.5-4.5)
[2017-07-02] MEDS: Potassium Chloride 20 mEq ER Tab PO SCH (09:59)
[2017-07-02] MEDS: Ammonium Lactate 12% Cream (140 g) TOP SCH (09:59)
[2017-07-02] MEDS: Enoxaparin 30 mg Syringe SC SCH (10:01)
[2017-07-02] MEDS: Clotrimazole 1% Top Soln(10 ml) TOP SCH ×2 (10:01→17:45)
[2017-07-02] MEDS: Silver Sulfadiazine 1% Cream (25 gm) TP SCH (10:03)
[2017-07-02] MEDS: cefTRIAXone 2 GM IN NS 2 GM/100 ML BAG IVPB SCH (10:03)
[2017-07-02] MEDS: Magnesium Chloride 64 mg ER Tab PO SCH ×2 (10:04→17:46)
--- NOTE | 2017-07-02 16:06 | CP.PCM.PN ---
<Wander Scott - Last Filed: 07/02/17 16:02> Subjective - Date & Time of Evaluation Date of Evaluation: 07/02/17 Time of Evaluation: 10:30 - Subjective Subjective: Podiatry Progress Note for Dr. Gardner 61 y.o male seen at bedside with attending for left foot ulceration and OM. Patient is seen resting comfortably in bed, in NAD, and AA0x3. Patient denies any acute overnight. Dressing is clean, dry, and intact. During time of visitation patient reports tenderness to the L foot. Patient reports that the pain has decreased since seen in the ED. Patient denies n/v/sob/cp/chills/d or f at this moment. Objective - Vital Signs/Intake and Output Vital Signs (last 24 hours): Temp Pulse Resp BP Pulse Ox 98.1 F 91 H 20 160/85 H 100 07/02/17 07:27 07/02/17 09:59 07/02/17 07:27 07/02/17 09:59 07/02/17 07:27 Intake and Output: 07/02/17 07/02/17 06:59 18:59 Intake Total 2270 480 Output Total 400 Balance 1870 480 - Medications Medications: Current Medications Acetaminophen (Tylenol 325mg Tab) 975 mg PO ONCE PRN PRN Reason: Fever >100.4 F Last Admin: 06/29/17 12:28 Dose: 975 mg Aspirin (Aspirin Chewable) 81 mg PO DAILY [facility] Last Admin: 07/02/17 09:58 Dose: 81 mg Atorvastatin Calcium (Lipitor) 10 mg PO DIN [facility] Last Admin: 07/01/17 17:14 Dose: 10 mg Clotrimazole (Lotrimin Af 1%) 0 ml TOP BID [facility] Last Admin: 07/02/17 10:01 Dose: Not Given Enoxaparin Sodium (Lovenox) 30 mg SC DAILY [facility] PRN Reason: Protocol Last Admin: 07/02/17 10:01 Dose: 30 mg Famotidine (Pepcid) 40 mg PO HS [facility] Last Admin: 07/01/17 22:48 Dose: 40 mg Sodium Chloride (Sodium Chloride 0.9%) 1,000 mls @ 150 mls/hr IV .Q6H40M [facility] Last Admin: 07/02/17 10:05 Dose: 150 mls/hr Ceftriaxone Sodium (Rocephin 2 Gm Ivpb) 2 gm in 100 mls @ 100 mls/hr IVPB DAILY [facility] PRN Reason: Protocol Stop: 07/16/17 10:01 Last Admin: 07/02/17 10:03 Dose: 100 mls/hr Insulin Human Lispro (Humalog Med) 0 units SC ACHS [facility] PRN Reason: Protocol Last Admin: 07/02/17 14:24 Dose: Not Given Lactic Acid (Lac-Hydrin 12% Cream (140 G)) 1 ea TOP DAILY [facility] Last Admin: 07/02/17 09:59 Dose: 1 applic Lorazepam (Ativan) 2 mg IVP Q6H PRN; Protocol PRN Reason: Anxiety Magnesium Chloride (Slow-Mag) 64 mg PO BID [facility] Metoprolol Tartrate (Lopressor) 25 mg PO DAILY [facility] Last Admin: 07/02/17 09:59 Dose: 25 mg Oxycodone/Acetaminophen (Percocet 5/325 Mg Tab) 1 tab PO Q4H PRN PRN Reason: Pain, moderate (4-7) Stop: 07/03/17 09:37 Last Admin: 06/30/17 12:37 Dose: 1 tab Potassium Chloride (K-Dur 20 Meq Er Tab) 20 meq PO BRK [facility] Last Admin: 07/02/17 09:59 Dose: 20 meq Silver Sulfadiazine (Silvadene 1% 25 Gm) 0 gm TP DAILY [facility] Last Admin: 07/02/17 10:03 Dose: Not Given - Labs Labs: 07/02/17 06:30 07/02/17 06:30 - Constitutional Appears: Well, Non-toxic, No Acute Distress - Extremities Exam Additional comments: Vasc: DP and PT 1/4 bilaterally, CFT < 3 seconds x 10 digits, temperature warm to warm, edema noted to the left forefoot Ortho: tenderness noted with palpation to the site surrounding ulceration; severe hallux valgus bilaterally, lateral deviation of the digits noted, hammertoe contractures 2-4 noted Neuro: protective and gross sensation intact bilaterally Derm: ulceration at the medial plantar aspect of the 1st MPJ of left foot measuring approximately 1.5 cm x 2cm x . 2 cm. Wound base is 40% fibrotic, 60% granular with fibrotic slough noted to the plantar aspect of the ulceration. No purulence expressed from ulceration today; mild serous drainage noted; mild undermining noted to the ulceration plantarly; no tunneling noted; probe to bone ; erythema and malodorous (odor has significantly improved). No streaking noted. Discoloration/hyperpigmentated skin noted to the LE bilaterally. Macerated and intact periwound. - Neurological Exam Neurological Exam: Alert, Awake, Oriented x3 - Psychiatric Exam Psychiatric exam: Normal Affect, Normal Mood Assessment and Plan - Assessment and Plan (Free Text) Assessment: 61 year old male with infected left foot ulceration and OM Plan: Patient examined and evaluated with attending Labs, charts, vitals reviewed (afebrile, absent leukocytosis: 3.1) Discussed plan in detail with attending Dr. Gardner X-rays results- IMPRESSION: Subluxation at 1st through 3rd metatarsal phalangeal articulation with valgus deformity. Pencil like narrowing of distal aspect of 2nd metatarsal. Possible juxta-articular erosion of distal 1st metatarsal with overlying soft tissue swelling, possibly due to gout. Psoriatic arthritis may also be considered for the generalized articular abnormality at the MTP joints. Circumscribed lucent lesion of the proximal 3rd metatarsal diaphysis with an appearance suggestive of enchondroma though this is not pathognomonic. Followup advised. MRI results- IMPRESSION: Cortical erosion and bone marrow edema at the lateral aspect of the distal 1st metatarsal head suspicious for osteomyelitis. Well defined cystic lesion at the proximal portion of the 3rd metatarsal bone. Severe arthritic degenerative changes and subluxation at the metatarsal- phalangeal joints. Wound culture result- Group G Streptococcus Ulceration cleansed with saline, dressed with silvadene, dsd, and demi ID consulted- recommendations appreciated No surgical intervention during this time for OM. c/w abx; awaiting finals recommendations from ID- may need PICC line for OM treatment ESR elevated 80 RF factor ordered- pending results Lac-Hydrin ordered- to be applied to LE PRN, avoid foot interspaces Lotrimin ordered- to be applied to LE as instructed Percocet for pain Surgical shoe ordered. Patient may WBAT to the heels in surgical shoe. Podiatry will continue to follow while in house <Rakesh Gardner - Last Filed: 07/03/17 07:25> Objective - Vital Signs/Intake and Output Vital Signs (last 24 hours): Temp Pulse Resp BP Pulse Ox 97.6 F 64 20 183/90 H 99 07/02/17 16:00 07/02/17 16:00 07/02/17 16:00 07/02/17 16:00 07/02/17 16:00 Intake and Output: 07/03/17 07/03/17 06:59 18:59 Intake Total 240 Output Total 200 Balance 40 - Medications Medications: Current Medications Acetaminophen (Tylenol 325mg Tab) 975 mg PO ONCE PRN PRN Reason: Fever >100.4 F Last Admin: 06/29/17 12:28 Dose: 975 mg Aspirin (Aspirin Chewable) 81 mg PO DAILY [facility] Last Admin: 07/02/17 09:58 Dose: 81 mg Atorvastatin Calcium (Lipitor) 10 mg PO DIN [facility] Last Admin: 07/02/17 17:44 Dose: 10 mg Clotrimazole (Lotrimin Af 1%) 0 ml TOP BID [facility] Last Admin: 07/02/17 17:45 Dose: Not Given Enoxaparin Sodium (Lovenox) 30 mg SC DAILY [facility] PRN Reason: Protocol Last Admin: 07/02/17 10:01 Dose: 30 mg Famotidine (Pepcid) 40 mg PO HS [facility] Last Admin: 07/02/17 22:06 Dose: 40 mg Sodium Chloride (Sodium Chloride 0.9%) 1,000 mls @ 150 mls/hr IV .Q6H40M [facility] Last Admin: 07/02/17 22:06 Dose: 150 mls/hr Ceftriaxone Sodium (Rocephin 2 Gm Ivpb) 2 gm in 100 mls @ 100 mls/hr IVPB DAILY [facility] PRN Reason: Protocol Stop: 07/16/17 10:01 Last Admin: 07/02/17 10:03 Dose: 100 mls/hr Insulin Human Lispro (Humalog Med) 0 units SC ACHS [facility] PRN Reason: Protocol Last Admin: 07/02/17 22:05 Dose: Not Given Lactic Acid (Lac-Hydrin 12% Cream (140 G)) 1 ea TOP DAILY [facility] Last Admin: 07/02/17 09:59 Dose: 1 applic Lorazepam (Ativan) 2 mg IVP Q6H PRN; Protocol PRN Reason: Anxiety Magnesium Chloride (Slow-Mag) 64 mg PO BID [facility] Last Admin: 07/02/17 17:46 Dose: 64 mg Metoprolol Tartrate (Lopressor) 25 mg PO DAILY [facility] Last Admin: 07/02/17 09:59 Dose: 25 mg Oxycodone/Acetaminophen (Percocet 5/325 Mg Tab) 1 tab PO Q4H PRN PRN Reason: Pain, moderate (4-7) Stop: 07/03/17 09:37 Last Admin: 06/30/17 12:37 Dose: 1 tab Potassium Chloride (K-Dur 20 Meq Er Tab) 20 meq PO BRK [facility] Last Admin: 07/02/17 09:59 Dose: 20 meq Silver Sulfadiazine (Silvadene 1% 25 Gm) 0 gm TP DAILY [facility] Last Admin: 07/02/17 10:03 Dose: Not Given - Labs Labs: 07/02/17 06:30 07/02/17 06:30 Attending/Attestation - Attestation I have personally seen and examined this patient.: Yes I have fully participated in the care of the patient.: Yes
--- NOTE | 2017-07-02 16:19 | PN ---
DATE: SUBJECTIVE: The patient denies chest pain. PHYSICAL EXAMINATION: VITAL SIGNS: Blood pressure 160/85, heart rate 91, temperature 98.4, and respirations 20. HEENT: Normocephalic. CHEST: Clear. HEART: S1 and S2 regular. EXTREMITIES: Dressings applied to the left foot. LABORATORY DATA: Today's SMA-7 is within normal limits. Calcium is 8.1. Hemoglobin and hematocrit are 12.4 and 36.5, white count 3.1, and platelet count 190,000. ASSESSMENT: 1. Dizziness on admission. 2. Hypertension. 3. Peripheral vascular disease. 4. Hypokalemia. 5. Questionable osteomyelitis of the left first metatarsal head. 6. Mild anemia. 7. Hypomagnesemia. Today's magnesium is 1.6. CONDITIONS: Continue current aspirin, Ativan, Lipitor, Lopressor, subcutaneous Lovenox, IV Rocephin, and increase Slow-Mag to one tablet p.o. twice a day. Nguyễn Lopez MD
--- NOTE | 2017-07-02 21:04 | PN ---
DATE: 07/02/2017 SUBJECTIVE: Patient is in bed, no acute distress. No fevers and no chills. PHYSICAL EXAMINATION VITAL SIGNS: Temperature is 98, blood pressure is 180/90, respiratory rate of 20. HEENT: Unremarkable. NECK: Supple. LUNGS: Decreased breath sounds. HEART: Normal S1, S2. ABDOMEN: Soft, nontender. LABORATORY EXAMINATION: Reveals a white count of 3.1, hemoglobin of 12, platelets of 190. BUN of 9, creatinine of 0.9. Urinalysis is noted. Examination of the foot culture reveals group G strep. The blood cultures are negative. Review of orders reveals the patient to be on ceftriaxone. ASSESSMENT AND PLAN: A 61-year-old male with hypertension, alcohol abuse, presenting with sepsis and group G strep cellulitis with osteomyelitis, on ceftriaxone 2 g q. 24 hours and will need 4 to 6 weeks' of antibiotics with weekly sed rate, C-reactive protein, CBC and SMA-18 and close follow up with Podiatry and Vascular team and Internal Medicine. is reported to be negative. Ayaan Colindres MD
[2017-07-03 07:27] LABS: BASO # 0.03 K/mm3 (0.0-2.0); BASO % 0.9 % (0.0-3.0); EOS # 0.2 (0.0-0.7); EOS % 6.9 % (1.5-5.0); GRAN # 1.85 (1.4-6.5); HEMATOCRIT 38.4 % (42.0-52.0); LYMPH # 0.5 (1.2-3.4); LYMPH % 15.7 % (22.0-35.0); MEAN CELL VOLUME 90.4 fl (80.0-105.0); MEAN CORPUSCULAR HEMOGLOBIN 31.1 pg (25.0-35.0); MEAN CORPUSCULAR HGB CONC 34.4 g/dl (31.0-37.0); MEAN PLATELET VOLUME 9.4 fl (7.0-11.0); MONO # 0.6 (0.1-0.6); MONO % 18.5 % (1.0-6.0); RED CELL DISTRIBUTION WIDTH 12.1 % (11.5-14.5); WHITE BLOOD COUNT 3.2 10^3/ul (4.5-11.0)
[2017-07-03 08:01] LABS: ALB/GLOB RATIO 0.9 (1.1-1.8); ALKALINE PHOSPHATASE 55 U/L (38-126); ALT/SGPT 21 U/L (7-56); AST/SGOT 33 U/L (17-59); BILIRUBIN,TOTAL 0.4 mg/dL (0.2-1.3); BLOOD UREA NITROGEN 8 mg/dL (7-21); CALCIUM 8.4 mg/dL (8.4-10.5); CARBON DIOXIDE 24 mmol/L (21-33); CHLORIDE 104 mmol/L (98-107); GFR AFRICAN-AMERICAN > 60; GLUCOSE,RANDOM 100 mg/dL (70-110); MAGNESIUM 1.5 mg/dL (1.7-2.2); PHOSPHOROUS 2.6 mg/dL (2.5-4.5); POTASSIUM 3.5 mmol/L (3.6-5.0); SODIUM 136 mmol/L (132-148); TOTAL PROTEIN 6.5 g/dL (5.8-8.3)
[2017-07-03] MEDS: Potassium Chloride 20 mEq ER Tab PO SCH ×2 (08:33→17:09)
[2017-07-03] MEDS: Insulin Lispro (humaLOG) MEDIUM Coverage SC SCH ×4 (08:33→21:55)
[2017-07-03] MEDS: Magnesium Chloride 64 mg ER Tab PO SCH ×3 (10:25→17:09)
[2017-07-03] MEDS: Enoxaparin 30 mg Syringe SC SCH (10:26)
[2017-07-03] MEDS: Clotrimazole 1% Top Soln(10 ml) TOP SCH ×2 (10:26→18:43)
[2017-07-03] MEDS: cefTRIAXone 2 GM IN NS 2 GM/100 ML BAG IVPB SCH (10:27)
[2017-07-03] MEDS: Silver Sulfadiazine 1% Cream (25 gm) TP SCH (10:28)
[2017-07-03] MEDS ORDERED: Magnesium Sulfate 2 GM in Sodium Chloride 0.9% 100 ML IVPB ONE (10:29)
[2017-07-03] MEDS ORDERED: Potassium Chloride 10 mEq ER Tab PO STA (10:29)
[2017-07-03] MEDS: Ammonium Lactate 12% Cream (140 g) TOP SCH (10:38)
--- NOTE | 2017-07-03 11:23 | CP.PCM.PN ---
<Misty Penaloza - Last Filed: 07/03/17 11:15> Subjective - Date & Time of Evaluation Date of Evaluation: 07/03/17 Time of Evaluation: 11:16 - Subjective Subjective: Podiatry Progress Note for Dr. Gardner 61 year old male patient seen and evaluated at bedside with attending for left foot ulceration and OM. Patient resting comfortably, hemodynamically stable and NAD. Denies any acute events overnight. Patient is currently wearing pants with dirt touching dressing. Patient reports continued pain however well controlled. No other pedal complaints this visit. Denies N/V/F/D/C/SOB/calf pain. Objective - Vital Signs/Intake and Output Vital Signs (last 24 hours): Temp Pulse Resp BP Pulse Ox 98.9 F 75 20 128/78 98 07/03/17 08:46 07/03/17 10:25 07/03/17 08:46 07/03/17 10:25 07/03/17 08:46 Intake and Output: 07/03/17 07/03/17 06:59 18:59 Intake Total 240 Output Total 200 Balance 40 - Medications Medications: Current Medications Acetaminophen (Tylenol 325mg Tab) 975 mg PO ONCE PRN PRN Reason: Fever >100.4 F Last Admin: 06/29/17 12:28 Dose: 975 mg Aspirin (Aspirin Chewable) 81 mg PO DAILY [facility] Last Admin: 07/03/17 10:25 Dose: 81 mg Atorvastatin Calcium (Lipitor) 10 mg PO DIN [facility] Last Admin: 07/02/17 17:44 Dose: 10 mg Clotrimazole (Lotrimin Af 1%) 0 ml TOP BID [facility] Last Admin: 07/03/17 10:26 Dose: Not Given Enoxaparin Sodium (Lovenox) 30 mg SC DAILY [facility] PRN Reason: Protocol Last Admin: 07/03/17 10:26 Dose: 30 mg Famotidine (Pepcid) 40 mg PO HS [facility] Last Admin: 07/02/17 22:06 Dose: 40 mg Ceftriaxone Sodium (Rocephin 2 Gm Ivpb) 2 gm in 100 mls @ 100 mls/hr IVPB DAILY [facility] PRN Reason: Protocol Stop: 07/16/17 10:01 Last Admin: 07/03/17 10:27 Dose: 100 mls/hr Magnesium Sulfate 2 gm/ Sodium (Chloride) 104 mls @ 102 mls/hr IVPB ONCE ONE Stop: 07/03/17 11:30 Insulin Human Lispro (Humalog Med) 0 units SC ACHS [facility] PRN Reason: Protocol Last Admin: 07/03/17 08:33 Dose: Not Given Lactic Acid (Lac-Hydrin 12% Cream (140 G)) 1 ea TOP DAILY [facility] Last Admin: 07/03/17 10:38 Dose: 1 applic Lorazepam (Ativan) 2 mg IVP Q6H PRN; Protocol PRN Reason: Anxiety Magnesium Chloride (Slow-Mag) 64 mg PO BID [facility] Last Admin: 07/03/17 10:25 Dose: 64 mg Metoprolol Tartrate (Lopressor) 25 mg PO DAILY [facility] Last Admin: 07/03/17 10:25 Dose: 25 mg Potassium Chloride (K-Dur 20 Meq Er Tab) 20 meq PO BRK [facility] Last Admin: 07/03/17 08:33 Dose: 20 meq Silver Sulfadiazine (Silvadene 1% 25 Gm) 0 gm TP DAILY [facility] Last Admin: 07/03/17 10:28 Dose: Not Given - Labs Labs: 07/03/17 06:30 07/03/17 06:30 - Constitutional Appears: Well, Non-toxic, No Acute Distress - Extremities Exam Additional comments: Vasc: DP and PT 1/4 bilaterally, CFT < 3 seconds x 10 digits, temperature warm to warm, edema noted to the left forefoot Ortho: tenderness noted with palpation to the site surrounding ulceration; severe hallux valgus bilaterally, lateral deviation of the digits noted, hammertoe contractures 2-4 noted Neuro: protective and gross sensation intact bilaterally Derm: ulceration at the medial plantar aspect of the 1st MPJ of left foot measuring approximately 1.5 cm x 2cm x . 2 cm. Wound base is 40% fibrotic, 60% granular with fibrotic slough noted to the plantar aspect of the ulceration. No purulence expressed from ulceration today; mild serous drainage noted; mild undermining noted to the ulceration plantarly; no tunneling noted; probe to bone ; erythema and malodorous (odor has significantly improved). No streaking noted. Discoloration/hyperpigmentated skin noted to the LE bilaterally. Macerated and intact periwound. - Neurological Exam Neurological Exam: Alert, Awake, Oriented x3 - Psychiatric Exam Psychiatric exam: Normal Affect, Normal Mood Assessment and Plan - Assessment and Plan (Free Text) Assessment: 61 year old male with infected left foot ulceration and OM Plan: Patient examined and evaluated with attending, Dr. Gardner afebrile, leukopenia present 3.2, ESR 80 HIV 1&2 negative RF IgM 9 XR findings IMPRESSION: Subluxation at 1st through 3rd metatarsal phalangeal articulation with valgus deformity. Pencil like narrowing of distal aspect of 2nd metatarsal. Possible juxta-articular erosion of distal 1st metatarsal with overlying soft tissue swelling, possibly due to gout. Psoriatic arthritis may also be considered for the generalized articular abnormality at the MTP joints. Circumscribed lucent lesion of the proximal 3rd metatarsal diaphysis with an appearance suggestive of enchondroma though this is not pathognomonic. Followup advised. MRI findings IMPRESSION: Cortical erosion and bone marrow edema at the lateral aspect of the distal 1st metatarsal head suspicious for osteomyelitis. Well defined cystic lesion at the proximal portion of the 3rd metatarsal bone. Severe arthritic degenerative changes and subluxation at the metatarsal- phalangeal joints. Wound culture result- Group G Streptococcus Ulceration cleansed with saline, dressed with silvadene DSD No surgical intervention at this time ID consulted, recs appreciated; pt on ceftriaxone 2g q24h and will need 4-6 weeks of abx -Possible PIC needed LacHydrin prn Lotrimin to bilateral LE Pain mgmt per medicine Surgical shoe ordered. Patient may WBAT to the heel in surgical shoe. Podiatry will continue to follow while in house <Rakesh Gardner - Last Filed: 07/07/17 08:27> Objective - Vital Signs/Intake and Output Vital Signs (last 24 hours): Temp Pulse Resp BP Pulse Ox 99.1 F 61 20 139/75 96 07/06/17 16:00 07/06/17 16:00 07/06/17 16:00 07/06/17 16:00 07/06/17 16:00 Intake and Output: 07/07/17 07/07/17 06:59 18:59 Intake Total 420 Balance 420 - Medications Medications: Current Medications Acetaminophen (Tylenol 325mg Tab) 975 mg PO ONCE PRN PRN Reason: Fever >100.4 F Last Admin: 06/29/17 12:28 Dose: 975 mg Aspirin (Aspirin Chewable) 81 mg PO DAILY [facility] Last Admin: 07/06/17 10:42 Dose: 81 mg Atorvastatin Calcium (Lipitor) 10 mg PO DIN [facility] Last Admin: 07/06/17 17:27 Dose: 10 mg Clotrimazole (Lotrimin Af 1%) 0 ml TOP BID [facility] Last Admin: 07/06/17 17:28 Dose: Not Given Enoxaparin Sodium (Lovenox) 30 mg SC DAILY [facility] PRN Reason: Protocol Last Admin: 07/06/17 10:42 Dose: 30 mg Famotidine (Pepcid) 40 mg PO HS [facility] Last Admin: 07/06/17 21:41 Dose: 40 mg Vancomycin HCl (Vancomycin 1gm) 1 gm in 250 mls @ 167 mls/hr IVPB Q12H [facility] PRN Reason: Protocol Stop: 08/02/17 22:01 Last Admin: 07/06/17 21:41 Dose: 167 mls/hr Insulin Human Lispro (Humalog Med) 0 units SC ACHS [facility] PRN Reason: Protocol Last Admin: 07/07/17 07:39 Dose: Not Given Lactic Acid (Lac-Hydrin 12% Cream (140 G)) 1 ea TOP DAILY [facility] Last Admin: 07/06/17 10:30 Dose: Not Given Lisinopril (Zestril) 10 mg PO DAILY [facility] Last Admin: 07/06/17 13:04 Dose: 10 mg Lorazepam (Ativan) 2 mg IVP Q6H PRN; Protocol PRN Reason: Anxiety Metoprolol Tartrate (Lopressor) 25 mg PO DAILY [facility] Last Admin: 07/06/17 10:42 Dose: 25 mg Potassium Chloride (K-Dur 20 Meq Er Tab) 20 meq PO BID [facility] Last Admin: 07/06/17 17:27 Dose: 20 meq Silver Sulfadiazine (Silvadene 1% 25 Gm) 0 gm TP DAILY [facility] Last Admin: 07/06/17 10:30 Dose: Not Given - Labs Labs: 07/07/17 08:15 07/06/17 06:30 Attending/Attestation - Attestation I have personally seen and examined this patient.: Yes I have fully participated in the care of the patient.: Yes I have reviewed all pertinent clinical information, including history, physical exam and plan: Yes
--- NOTE | 2017-07-03 12:30 | CP.PCM.PN ---
<Laura Mcgraw - Last Filed: 07/03/17 12:25> Subjective - Date & Time of Evaluation Date of Evaluation: 07/03/17 Time of Evaluation: 12:25 - Subjective Subjective: Laura Mcgraw, PGY1, Medicine Progress Note for Dr Antonio: Patient seen and examined at bedside. Denies dizziness, cp, sob, foot pain, fever, chills, nausea, vomiting. Pt ambulating well throughout the hallway. Pt is s/p right sided arm picc line yesterday, awaiting insurance approval for home IV antibiotics coverage. Objective - Vital Signs/Intake and Output Vital Signs (last 24 hours): Temp Pulse Resp BP Pulse Ox 98.9 F 75 20 128/78 98 07/03/17 08:46 07/03/17 10:25 07/03/17 08:46 07/03/17 10:25 07/03/17 08:46 Intake and Output: 07/03/17 07/03/17 06:59 18:59 Intake Total 240 Output Total 200 Balance 40 - Medications Medications: Current Medications Acetaminophen (Tylenol 325mg Tab) 975 mg PO ONCE PRN PRN Reason: Fever >100.4 F Last Admin: 06/29/17 12:28 Dose: 975 mg Aspirin (Aspirin Chewable) 81 mg PO DAILY [facility] Last Admin: 07/03/17 10:25 Dose: 81 mg Atorvastatin Calcium (Lipitor) 10 mg PO DIN [facility] Last Admin: 07/02/17 17:44 Dose: 10 mg Clotrimazole (Lotrimin Af 1%) 0 ml TOP BID [facility] Last Admin: 07/03/17 10:26 Dose: Not Given Enoxaparin Sodium (Lovenox) 30 mg SC DAILY [facility] PRN Reason: Protocol Last Admin: 07/03/17 10:26 Dose: 30 mg Famotidine (Pepcid) 40 mg PO HS [facility] Last Admin: 07/02/17 22:06 Dose: 40 mg Ceftriaxone Sodium (Rocephin 2 Gm Ivpb) 2 gm in 100 mls @ 100 mls/hr IVPB DAILY [facility] PRN Reason: Protocol Stop: 07/16/17 10:01 Last Admin: 07/03/17 10:27 Dose: 100 mls/hr Insulin Human Lispro (Humalog Med) 0 units SC ACHS [facility] PRN Reason: Protocol Last Admin: 07/03/17 12:02 Dose: Not Given Lactic Acid (Lac-Hydrin 12% Cream (140 G)) 1 ea TOP DAILY [facility] Last Admin: 07/03/17 10:38 Dose: 1 applic Lorazepam (Ativan) 2 mg IVP Q6H PRN; Protocol PRN Reason: Anxiety Magnesium Chloride (Slow-Mag) 64 mg PO BID [facility] Last Admin: 07/03/17 10:25 Dose: 64 mg Metoprolol Tartrate (Lopressor) 25 mg PO DAILY [facility] Last Admin: 07/03/17 10:25 Dose: 25 mg Potassium Chloride (K-Dur 20 Meq Er Tab) 20 meq PO BRK [facility] Last Admin: 07/03/17 08:33 Dose: 20 meq Silver Sulfadiazine (Silvadene 1% 25 Gm) 0 gm TP DAILY [facility] Last Admin: 07/03/17 10:28 Dose: Not Given - Labs Labs: 07/03/17 06:30 07/03/17 06:30 - Additional Findings Additional findings: - Constitutional Appears: Non-toxic, No Acute Distress, Older Than Stated Age - Head Exam Head Exam: ATRAUMATIC, NORMOCEPHALIC - Eye Exam Eye Exam: EOMI, PERRL Pupil Exam: PERRL - ENT Exam ENT Exam: Mucous Membranes Moist - Respiratory Exam Respiratory Exam: Clear to Ausculation Bilateral. absent: Accessory Muscle Use , Chest Wall Tenderness, Decreased Breath Sounds, Respiratory Distress - Cardiovascular Exam Cardiovascular Exam: RRR, +S1, +S2. absent: Murmur - GI/Abdominal Exam GI & Abdominal Exam: Soft, Normal Bowel Sounds. absent: Distended, Tenderness, Mass, Organomegaly, Rebound - Extremities Exam Extremities Exam: absent: Calf Tenderness Additional comments: R sided PICC line in place, dressing c/d/i left foot cellulitis and OM, covered in dressing, c/d/i - Back Exam Back Exam: NORMAL INSPECTION - Neurological Exam Neurological Exam: Alert, Awake, Oriented x3 - Psychiatric Exam Psychiatric exam: Normal Affect, Normal Mood - Skin Skin Exam: Dry, Normal Color, Warm Assessment and Plan - Assessment and Plan (Free Text) Assessment: 61 years old male with PMH HTN?, presents for sepsis, dizziness/near syncope, HTN urgency, left foot ulcer, hypomagnesemia, s/p PICC line insertion yesterday : Sepsis, resolved: - 2/2 osteomyelitis of left 1st metatarsal head. - Pt febrile 103.3 and tachycardic, given Tylenol in ED. Given Vanco and Zosyn x1 in ED. - Pt afebrile, no leukocytosis currently. - wound culture, left foot grew Group G strep (no sensitivities done). Spoke to microbiology tech: said most Group G Strep are sensitive to PCN. - CXR neg for infiltrate, UA neg for infection, urine culture shows contamination. - blood cultures 06/29 (2/2) NTD - procal 0.42, ESR 80 and CRP >15, both elevated. - Left foot x ray shows subluxation at 1st through 3rd metatarsal phalangeal articulation with valgus deformity. Pencil like narrowing of distal aspect of 2nd metatarsal. Possible juxta-articular erosion of distal 1st metatarsal with overlying soft tissue swelling, possibly due to gout. Psoriatic arthritis may also be considered for the generalized articular abnormality at the MTP joints. Circumscribed lucent lesion of the proximal 3rd metatarsal diaphysis with an appearance suggestive of enchondroma though this is not pathognomonic. - MRI foot shows cortical erosion and bone marrow edema at lateral aspect of 1st metatarsal of head - s/o osteomyelitis. Well defined cystic lesion at proximal portion of 3rd metatarsal. Degenerative changes. severe arthritis and subluxation at metatarsal phalangeal joints. - Lactate 1.7 on admission. - Podiatry on board. Appreciate recs. Recommends no surgical intervention. + special shoes to go home on. - ID Dr Colindres, on board. Recommends Ceftriaxone 2 gm IV daily x 4-6 weeks. Can be switched midway to PO abx, depending on weekly repeat CRP/ESR, chem panel and imaging. Appreciate recs. - S/p right Right arm PICC line insertion 07/02, for usp IV abx use. - Cont with IV ceftriaxone D2, per ID. Right SFA Occlusive disease: - Arterial LE doppler shows R SFA occulsive disease. - Carotid US shows b/l 20-39% in proximal ICA. - Dr Dent consulted. He does not plan on any interventions. Diabetes: - Hgb A1C 6.9. - C/w ISS. - Obtain good glycemic control in setting of osteomyelitis. - when discharged, will put on oral antidiabetics Metformin or Glipizide. Elevated/indeterminate troponins: - Trop 0.06->0.09->0.08 - Cardio on board (dianne). Appreciate recs - No recs received regarding cardiac cath/stress test yet? - Cont with ASA, statin and beta isaac. - LDL 72, will maintain <70. Dizziness, resolved: - 2/2 likely orthostatic vs cardiac etiology (arrhythmias, valvular abnormalities, acute ischemia) vs neurogenic etiology - Echo shows EF 53%, norml LF size/thickness. no valcular abnormalitis. - carotid US shows b/l 20-39% stenosis in proximal ICA. - EKG shows S tachy, 109, prolonged QTc 479. - Remote tele monitoring - Dr Lopez on board. Appreciate recs. Started daily K dur 20 eq bid and slow mag 1 gm daily. Hypomagnesemia: - 0.8 on admission, repleted. - started on Slow Mag 1 gm daily. - Low mag today, repleted. Hypokalemia: - started on daily K dur 20 meq bid as per Cardio. - K 3.5 today, given additional coverage. - Cont to monitor HTN urgency: - BP elevated 183/84 on admission, currently 117/62. Cont with Lopressor 25 mg PO daily. Cont to monitor. DVT ppx: Lovenox 30 mg SQ GI PPX: Pepcid Dispo: Lives at a 2 family house by himself, and neighbors. 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 Currently awaiting CM - insurance approval for D/c home on IV abx Discussed with Dr Antonio. Laura Mcgraw, PGY1 <Piotr Antonio - Last Filed: 07/03/17 13:06> Objective - Vital Signs/Intake and Output Vital Signs (last 24 hours): Temp Pulse Resp BP Pulse Ox 98.9 F 75 20 128/78 98 07/03/17 08:46 07/03/17 10:25 07/03/17 08:46 07/03/17 10:25 07/03/17 08:46 Intake and Output: 07/03/17 07/03/17 06:59 18:59 Intake Total 240 Output Total 200 Balance 40 - Medications Medications: Current Medications Acetaminophen (Tylenol 325mg Tab) 975 mg PO ONCE PRN PRN Reason: Fever >100.4 F Last Admin: 06/29/17 12:28 Dose: 975 mg Aspirin (Aspirin Chewable) 81 mg PO DAILY [facility] Last Admin: 07/03/17 10:25 Dose: 81 mg Atorvastatin Calcium (Lipitor) 10 mg PO DIN [facility] Last Admin: 07/02/17 17:44 Dose: 10 mg Clotrimazole (Lotrimin Af 1%) 0 ml TOP BID [facility] Last Admin: 07/03/17 10:26 Dose: Not Given Enoxaparin Sodium (Lovenox) 30 mg SC DAILY [facility] PRN Reason: Protocol Last Admin: 07/03/17 10:26 Dose: 30 mg Famotidine (Pepcid) 40 mg PO HS [facility] Last Admin: 07/02/17 22:06 Dose: 40 mg Ceftriaxone Sodium (Rocephin 2 Gm Ivpb) 2 gm in 100 mls @ 100 mls/hr IVPB DAILY [facility] PRN Reason: Protocol Stop: 07/16/17 10:01 Last Admin: 07/03/17 10:27 Dose: 100 mls/hr Insulin Human Lispro (Humalog Med) 0 units SC ACHS [facility] PRN Reason: Protocol Last Admin: 07/03/17 12:02 Dose: Not Given Lactic Acid (Lac-Hydrin 12% Cream (140 G)) 1 ea TOP DAILY [facility] Last Admin: 07/03/17 10:38 Dose: 1 applic Lorazepam (Ativan) 2 mg IVP Q6H PRN; Protocol PRN Reason: Anxiety Magnesium Chloride (Slow-Mag) 64 mg PO BID [facility] Last Admin: 07/03/17 10:25 Dose: 64 mg Metoprolol Tartrate (Lopressor) 25 mg PO DAILY [facility] Last Admin: 07/03/17 10:25 Dose: 25 mg Potassium Chloride (K-Dur 20 Meq Er Tab) 20 meq PO BRK [facility] Last Admin: 07/03/17 08:33 Dose: 20 meq Silver Sulfadiazine (Silvadene 1% 25 Gm) 0 gm TP DAILY [facility] Last Admin: 07/03/17 10:28 Dose: Not Given - Labs Labs: 07/03/17 06:30 07/03/17 06:30 Attending/Attestation - Attestation I have personally seen and examined this patient.: Yes I have fully participated in the care of the patient.: Yes I have reviewed all pertinent clinical information, including history, physical exam and plan: Yes Notes (Text): 07/03/17 13:03 61 year old male with no known past medical history except ETOH use who is admitted for sepsis secondary to left foot infection. Left foot xray and MRI foot were reviewed as above + for osteomyelitis. Continue with iv antibiotics as per ID and wound care as per podiatry. Wound culture is growing Group G Strept. Picc line was placed yesterday. Arterial doppler showed SFA occlusive disease. IR evaluation was requested; no plan for surgical intervention. Continue with aspirin, statin and lopressor. Will replete and repeat lytes. Piotr Antonio MD Hospitalist.
--- NOTE | 2017-07-03 15:07 | PN ---
DATE: 07/03/2017 SUBJECTIVE: The patient is in bed in no acute distress. PHYSICAL EXAMINATION: VITAL SIGNS: Temperature is 98, blood pressure is 150/80, respiratory rate is 20, and heart rate of 64. HEENT: Unremarkable. HEART: Normal S1 and S2. ABDOMEN: Soft and nontender. LABORATORY DATA: Reveals white count of 3.2, hemoglobin of 13, and platelets of 218. BUN of 8 and creatinine of 0.9. Urinalysis is noted. HIV is negative. Microbiology is noted. ASSESSMENT AND PLAN: This is a 61-year-old male with hypertension, and alcohol abuse, presenting with sepsis with group G strep cellulitis and osteomyelitis, on ceftriaxone 2 g q.24 hours. He will need 4-6 weeks of antibiotics with weekly sed rate, C-reactive protein, SMA-18, and CBC. Dr. Antonio's note is reviewed. Review of orders reveals ceftriaxone to be active. Ayaan Colindres MD
--- NOTE | 2017-07-03 16:38 | PN ---
DATE: SUBJECTIVE: The patient denies any chest pain. PHYSICAL EXAMINATION: VITAL SIGNS: Blood pressure 128/78, heart rate , temperature 98.9, respirations 20. HEENT: Normocephalic. CHEST: Clear. HEART: S1 and S2 regular. EXTREMITIES: Dressings applied to the left foot. LABORATORY DATA: Hemoglobin and hematocrit are 13.1 and 38.4, white count 3.2, and platelet count . Today's SMA-7 is within normal limits excepts for potassium 3.5. HIV screening is negative. ASSESSMENT: 1. Dizziness upon presentation to the hospital. 2. Hypertension. 3. Peripheral vascular disease. 4. Hypokalemia. 5. Hypomagnesemia. 6. Questionable osteomyelitis of the left first metatarsal head. RECOMMENDATIONS: Continue Lopressor 25 mg once a day, Lovenox 30 mg once a day, aspirin 81 mg once a day, increase Slow-Mag to one tablet 3 times a day, and K-Dur to 20 mEq twice a day. Nguyễn Lopez MD
[2017-07-04 06:38] LABS: BASO # 0.02 K/mm3 (0.0-2.0); BASO % 0.7 % (0.0-3.0); EOS # 0.1 (0.0-0.7); EOS % 5.2 % (1.5-5.0); GRAN # 1.62 (1.4-6.5); GRAN % 60.2 % (50.0-68.0); HEMATOCRIT 35.2 % (42.0-52.0); LYMPH # 0.4 (1.2-3.4); LYMPH % 14.9 % (22.0-35.0); MEAN CELL VOLUME 90.3 fl (80.0-105.0); MEAN CORPUSCULAR HEMOGLOBIN 31.3 pg (25.0-35.0); MEAN CORPUSCULAR HGB CONC 34.7 g/dl (31.0-37.0); MEAN PLATELET VOLUME 9.1 fl (7.0-11.0); MONO # 0.5 (0.1-0.6)
[2017-07-04 06:43] LABS: WHITE BLOOD COUNT 2.7 10^3/ul (4.5-11.0)
[2017-07-04 07:04] LABS: ALB/GLOB RATIO 0.9 (1.1-1.8); ALKALINE PHOSPHATASE 52 U/L (38-126); ALT/SGPT 29 U/L (7-56); AST/SGOT 25 U/L (17-59); BILIRUBIN,TOTAL 0.4 mg/dL (0.2-1.3); BLOOD UREA NITROGEN 10 mg/dL (7-21); CALCIUM 8.9 mg/dL (8.4-10.5); CARBON DIOXIDE 26 mmol/L (21-33); CHLORIDE 102 mmol/L (98-107); GFR AFRICAN-AMERICAN > 60; GLUCOSE,RANDOM 111 mg/dL (70-110); MAGNESIUM 1.4 mg/dL (1.7-2.2); PHOSPHOROUS 3.1 mg/dL (2.5-4.5); POTASSIUM 3.6 mmol/L (3.6-5.0); SODIUM 136 mmol/L (132-148); TOTAL PROTEIN 6.3 g/dL (5.8-8.3)
[2017-07-04] MEDS: Insulin Lispro (humaLOG) MEDIUM Coverage SC SCH ×4 (08:04→21:19)
[2017-07-04] MEDS: Magnesium Chloride 64 mg ER Tab PO SCH ×3 (09:03→17:36)
[2017-07-04] MEDS: Potassium Chloride 20 mEq ER Tab PO SCH ×2 (09:05→17:36)
[2017-07-04] MEDS: Enoxaparin 30 mg Syringe SC SCH (09:06)
[2017-07-04] MEDS: Clotrimazole 1% Top Soln(10 ml) TOP SCH ×2 (09:08→17:37)
[2017-07-04] MEDS: Silver Sulfadiazine 1% Cream (25 gm) TP SCH (09:09)
[2017-07-04] MEDS: Ammonium Lactate 12% Cream (140 g) TOP SCH (09:14)
[2017-07-04] MEDS: cefTRIAXone 2 GM IN NS 2 GM/100 ML BAG IVPB SCH (09:14)
[2017-07-04] MEDS ORDERED: Magnesium Sulfate 2 GM in Sodium Chloride 0.9% 100 ML IVPB ONE (10:39)
--- NOTE | 2017-07-04 11:25 | CP.PCM.PN ---
<Laura Mcgraw - Last Filed: 07/04/17 11:32> Subjective - Date & Time of Evaluation Date of Evaluation: 07/04/17 Time of Evaluation: 11:20 - Subjective Subjective: Laura Mcgraw, PGY1, Medicine Progress Note for Dr Antonio: Patient seen and examined at bedside. No acute events overnight. This AM, pt denies foot pain, fever, chills, diaphoresis, nausea, vomiting, abdominal pain, leg swelling, dizziness, fatigue, headache, urinary symptoms. Objective - Vital Signs/Intake and Output Vital Signs (last 24 hours): Temp Pulse Resp BP Pulse Ox 99.1 F 72 20 170/90 H 98 07/04/17 07:28 07/04/17 09:15 07/04/17 07:28 07/04/17 09:15 07/04/17 07:28 Intake and Output: 07/04/17 07/04/17 06:59 18:59 Intake Total 360 Balance 360 - Medications Medications: Current Medications Acetaminophen (Tylenol 325mg Tab) 975 mg PO ONCE PRN PRN Reason: Fever >100.4 F Last Admin: 06/29/17 12:28 Dose: 975 mg Aspirin (Aspirin Chewable) 81 mg PO DAILY [facility] Last Admin: 07/04/17 09:05 Dose: 81 mg Atorvastatin Calcium (Lipitor) 10 mg PO DIN [facility] Last Admin: 07/03/17 17:08 Dose: 10 mg Clotrimazole (Lotrimin Af 1%) 0 ml TOP BID [facility] Last Admin: 07/04/17 09:08 Dose: Not Given Enoxaparin Sodium (Lovenox) 30 mg SC DAILY [facility] PRN Reason: Protocol Last Admin: 07/04/17 09:06 Dose: 30 mg Famotidine (Pepcid) 40 mg PO HS [facility] Last Admin: 07/03/17 21:58 Dose: 40 mg Ceftriaxone Sodium (Rocephin 2 Gm Ivpb) 2 gm in 100 mls @ 100 mls/hr IVPB DAILY [facility] PRN Reason: Protocol Stop: 07/16/17 10:01 Last Admin: 07/04/17 09:14 Dose: 100 mls/hr Magnesium Sulfate 2 gm/ Sodium (Chloride) 104 mls @ 102 mls/hr IVPB ONCE ONE Stop: 07/04/17 11:40 Insulin Human Lispro (Humalog Med) 0 units SC ACHS [facility] PRN Reason: Protocol Last Admin: 07/04/17 08:04 Dose: Not Given Lactic Acid (Lac-Hydrin 12% Cream (140 G)) 1 ea TOP DAILY [facility] Last Admin: 07/04/17 09:14 Dose: Not Given Lorazepam (Ativan) 2 mg IVP Q6H PRN; Protocol PRN Reason: Anxiety Magnesium Chloride (Slow-Mag) 64 mg PO TID [facility] Last Admin: 07/04/17 09:03 Dose: 64 mg Metoprolol Tartrate (Lopressor) 25 mg PO DAILY [facility] Last Admin: 07/04/17 09:15 Dose: 25 mg Potassium Chloride (K-Dur 20 Meq Er Tab) 20 meq PO BID [facility] Last Admin: 07/04/17 09:05 Dose: 20 meq Silver Sulfadiazine (Silvadene 1% 25 Gm) 0 gm TP DAILY [facility] Last Admin: 07/04/17 09:09 Dose: Not Given - Labs Labs: 07/04/17 06:00 07/04/17 06:00 - Constitutional Appears: Non-toxic, No Acute Distress, Older Than Stated Age - Head Exam Head Exam: ATRAUMATIC, NORMOCEPHALIC - Eye Exam Eye Exam: EOMI, PERRL. absent: Conjunctival injection, Scleral icterus Pupil Exam: PERRL - ENT Exam ENT Exam: Mucous Membranes Moist - Neck Exam Neck Exam: Full ROM - Respiratory Exam Respiratory Exam: Clear to Ausculation Bilateral. absent: Accessory Muscle Use , Respiratory Distress - Cardiovascular Exam Cardiovascular Exam: RRR, +S1, +S2. absent: Murmur - GI/Abdominal Exam GI & Abdominal Exam: Soft, Normal Bowel Sounds. absent: Distended, Firm, Rigid , Tenderness, Mass, Organomegaly, Rebound - Extremities Exam Extremities Exam: absent: Calf Tenderness, Pedal Edema Additional comments: Left foot covered in dressing, c/d/i - Back Exam Back Exam: NORMAL INSPECTION - Neurological Exam Neurological Exam: Alert, Awake, Oriented x3 - Psychiatric Exam Psychiatric exam: Normal Affect, Normal Mood - Skin Skin Exam: Dry, Normal Color, Warm Assessment and Plan - Assessment and Plan (Free Text) Assessment: 61 years old male with PMH HTN?, presents for sepsis, dizziness/near syncope, HTN urgency, left foot ulcer, hypomagnesemia, s/p PICC line insertion 07/02: Sepsis, resolved: - 2/2 osteomyelitis of left 1st metatarsal head. - Pt febrile 103.3 and tachycardic, given Tylenol in ED. Given Vanco and Zosyn x1 in ED. - wound culture, left foot grew Group G strep (no sensitivities done). Spoke to microbiology tech: said most Group G Strep are sensitive to PCN. - CXR neg for infiltrate, UA neg for infection, urine culture shows contamination. - blood cultures 06/29 (2/2) NTD - procal 0.42, ESR 80 and CRP >15, both elevated. - Left foot x ray shows subluxation at 1st through 3rd metatarsal phalangeal articulation with valgus deformity. Pencil like narrowing of distal aspect of 2nd metatarsal. Possible juxta-articular erosion of distal 1st metatarsal with overlying soft tissue swelling, possibly due to gout. Psoriatic arthritis may also be considered for the generalized articular abnormality at the MTP joints. Circumscribed lucent lesion of the proximal 3rd metatarsal diaphysis with an appearance suggestive of enchondroma though this is not pathognomonic. - MRI foot shows cortical erosion and bone marrow edema at lateral aspect of 1st metatarsal of head - s/o osteomyelitis. Well defined cystic lesion at proximal portion of 3rd metatarsal. Degenerative changes. severe arthritis and subluxation at metatarsal phalangeal joints. - Lactate 1.7 on admission. - Podiatry on board. Appreciate recs. Recommends no surgical intervention. + special shoes to go home on. - ID Dr Colindres, on board. Recommends Ceftriaxone 2 gm IV daily x 4-6 weeks. Can be switched midway to PO abx, depending on weekly repeat CRP/ESR, chem panel and imaging. Appreciate recs. - S/p right Right arm PICC line insertion 07/02, for fci IV abx use. - Wbc trended down 7.6->3.2->2.7 today. Leukopenic. likely a side effect of Ceftriaxone. Will monitor and await ID recs for another antibiotic choice. - For now, will cont with IV ceftriaxone D3/4-6 weeks. Right SFA Occlusive disease: - Arterial LE doppler shows R SFA occulsive disease. - Carotid US shows b/l 20-39% in proximal ICA. - Dr Dent consulted. He does not plan any interventions. Diabetes: - Hgb A1C 6.9. - C/w ISS. BG 90s-130s. - Obtain good glycemic control in setting of osteomyelitis. - when discharged, will put on oral hypoglycemic agents Metformin or Glipizide. Elevated/indeterminate troponins: - Trop 0.06->0.09->0.08 - LDL 72, will maintain <70. - Echocardiogram EF 53%, no hypertrophy or valvular abnormalities. - Carotid US shows b/l 20-39% proximal ICA stenosis. - Cardio on board (dianne). Appreciate recs. No plans for stress test or invasive procedures noted. - Cont with ASA, statin and beta isaac. Dizziness, resolved: - 2/2 likely orthostatic vs cardiac etiology (arrhythmias, valvular abnormalities, acute ischemia) vs neurogenic etiology - Echo shows EF 53%, norml LF size/thickness. no valvular abnormalities. - carotid US shows b/l 20-39% stenosis in proximal ICA. - EKG shows S tachy, 109, prolonged QTc 479. - Remote tele monitoring - Dr Lopez on board. Appreciate recs. Started daily K dur 20 eq bid and slow mag 1 gm daily. Hypomagnesemia: - 0.8 on admission, repleted. - started on Slow Mag 1 gm BID. - Low mag today, repleted. Hypokalemia: - C/w K dur 20 meq PO bid as per Cardio. - Cont to monitor HTN urgency: - BP elevated 183/84 on admission. - Patient has been having HTN readings thru the hospital course, not complicated by pain. - Currently, pt on Lopressor 25 mg PO daily. - Consider adding Lisinopril (may help with hypokalemia as well). - Cont to monitor. DVT ppx: Lovenox 30 mg SQ GI PPX: Pepcid Dispo: Lives at a 2 family house by himself, and neighbors. 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 As per CM, pt does not have insurance. However, pt claims that he does have insurance. Case seen and discussed with Dr Antonio. Laura Mcgraw, PGY1 <Piotr Antonio - Last Filed: 07/04/17 13:03> Objective - Vital Signs/Intake and Output Vital Signs (last 24 hours): Temp Pulse Resp BP Pulse Ox 99.1 F 72 20 170/90 H 98 07/04/17 07:28 07/04/17 09:15 07/04/17 07:28 07/04/17 09:15 07/04/17 07:28 Intake and Output: 07/04/17 07/04/17 06:59 18:59 Intake Total 360 Balance 360 - Medications Medications: Current Medications Acetaminophen (Tylenol 325mg Tab) 975 mg PO ONCE PRN PRN Reason: Fever >100.4 F Last Admin: 06/29/17 12:28 Dose: 975 mg Aspirin (Aspirin Chewable) 81 mg PO DAILY [facility] Last Admin: 07/04/17 09:05 Dose: 81 mg Atorvastatin Calcium (Lipitor) 10 mg PO DIN [facility] Last Admin: 07/03/17 17:08 Dose: 10 mg Clotrimazole (Lotrimin Af 1%) 0 ml TOP BID [facility] Last Admin: 07/04/17 09:08 Dose: Not Given Enoxaparin Sodium (Lovenox) 30 mg SC DAILY [facility] PRN Reason: Protocol Last Admin: 07/04/17 09:06 Dose: 30 mg Famotidine (Pepcid) 40 mg PO HS [facility] Last Admin: 07/03/17 21:58 Dose: 40 mg Ceftriaxone Sodium (Rocephin 2 Gm Ivpb) 2 gm in 100 mls @ 100 mls/hr IVPB DAILY [facility] PRN Reason: Protocol Stop: 07/16/17 10:01 Last Admin: 07/04/17 09:14 Dose: 100 mls/hr Insulin Human Lispro (Humalog Med) 0 units SC ACHS [facility] PRN Reason: Protocol Last Admin: 07/04/17 11:57 Dose: Not Given Lactic Acid (Lac-Hydrin 12% Cream (140 G)) 1 ea TOP DAILY [facility] Last Admin: 07/04/17 09:14 Dose: Not Given Lorazepam (Ativan) 2 mg IVP Q6H PRN; Protocol PRN Reason: Anxiety Magnesium Chloride (Slow-Mag) 64 mg PO TID [facility] Last Admin: 07/04/17 09:03 Dose: 64 mg Metoprolol Tartrate (Lopressor) 25 mg PO DAILY [facility] Last Admin: 07/04/17 09:15 Dose: 25 mg Potassium Chloride (K-Dur 20 Meq Er Tab) 20 meq PO BID [facility] Last Admin: 07/04/17 09:05 Dose: 20 meq Silver Sulfadiazine (Silvadene 1% 25 Gm) 0 gm TP DAILY [facility] Last Admin: 07/04/17 09:09 Dose: Not Given - Labs Labs: 07/04/17 06:00 07/04/17 06:00 Attending/Attestation - Attestation I have personally seen and examined this patient.: Yes I have fully participated in the care of the patient.: Yes I have reviewed all pertinent clinical information, including history, physical exam and plan: Yes Notes (Text): 07/04/17 13:02 61 year old male with no known past medical history except ETOH use who is admitted for sepsis secondary to left foot infection. MRI foot showed osteomyelitis. Continue with iv antibiotics as per ID and wound care as per podiatry. Wound culture is growing Group G Strept. Picc line was placed. Will discuss with case finishing machine adjuster / social sciences chair on Wednesday regarding discharge options. Arterial doppler showed SFA occlusive disease. IR evaluation was requested; no plan for surgical intervention. Continue with aspirin, statin and lopressor. Will replete and repeat lytes. Piotr Antonio MD Hospitalist.
--- NOTE | 2017-07-04 16:45 | PN ---
DATE: 07/04/2017 SUBJECTIVE: The patient is in bed, in no acute distress, nontoxic. PHYSICAL EXAMINATION: VITAL SIGNS: Temperature is 99, blood pressure is 170/90, respiratory rate of 20. HEENT: Unremarkable. NECK: Supple. LUNGS: Have decreased breath sounds. HEART: Normal S1, S2. ABDOMEN: Soft, nontender. Laboratory examination reveals a white count of 2.7, hemoglobin of 12, platelets of 200. Chemistries reveal a BUN of 10, creatinine of 1.0, and procalcitonin 0.42. Microbiology reveals group G strep. Review of orders reveals the patient is on ceftriaxone. ASSESSMENT/PLAN: A 61-year-old male with hypertension, alcohol abuse, presenting with sepsis with group G strep cellulitis, osteomyelitis, on ceftriaxone 2 g q.24 h. only 4 to 6 weeks of antibiotics with weekly sed rate, C-reactive protein, CBC and chemistries. Case discussed with Dr. Antonio. Ayaan Colindres MD
--- NOTE | 2017-07-04 16:47 | CP.PCM.PN ---
Subjective - Date & Time of Evaluation Date of Evaluation: 07/04/17 Time of Evaluation: 16:43 - Subjective Subjective: Podiatry Progress Note for Dr. Gardner/Eric 61 year old male patient seen and evaluated at bedside with attending for left foot ulceration and OM. Patient resting comfortably, hemodynamically stable and NAD. Denies any acute events overnight. Patient reports continued pain however well controlled. Patient not wearing surgical shoe to left foot; states he has not been using it with ambulation. Dirt present on dressing. No other pedal complaints this visit. Denies N/V/F/D/C/SOB/calf pain. Objective - Vital Signs/Intake and Output Vital Signs (last 24 hours): Temp Pulse Resp BP Pulse Ox 99.5 F 59 L 20 157/80 H 95 07/04/17 16:36 07/04/17 16:36 07/04/17 16:36 07/04/17 16:36 07/04/17 16:36 Intake and Output: 07/04/17 07/04/17 06:59 18:59 Intake Total 360 Balance 360 - Medications Medications: Current Medications Acetaminophen (Tylenol 325mg Tab) 975 mg PO ONCE PRN PRN Reason: Fever >100.4 F Last Admin: 06/29/17 12:28 Dose: 975 mg Aspirin (Aspirin Chewable) 81 mg PO DAILY [facility] Last Admin: 07/04/17 09:05 Dose: 81 mg Atorvastatin Calcium (Lipitor) 10 mg PO DIN [facility] Last Admin: 07/03/17 17:08 Dose: 10 mg Clotrimazole (Lotrimin Af 1%) 0 ml TOP BID [facility] Last Admin: 07/04/17 09:08 Dose: Not Given Enoxaparin Sodium (Lovenox) 30 mg SC DAILY [facility] PRN Reason: Protocol Last Admin: 07/04/17 09:06 Dose: 30 mg Famotidine (Pepcid) 40 mg PO HS [facility] Last Admin: 07/03/17 21:58 Dose: 40 mg Ceftriaxone Sodium (Rocephin 2 Gm Ivpb) 2 gm in 100 mls @ 100 mls/hr IVPB DAILY [facility] PRN Reason: Protocol Stop: 07/16/17 10:01 Last Admin: 07/04/17 09:14 Dose: 100 mls/hr Insulin Human Lispro (Humalog Med) 0 units SC [facility] PRN Reason: Protocol Last Admin: 07/04/17 11:57 Dose: Not Given Lactic Acid (Lac-Hydrin 12% Cream (140 G)) 1 ea TOP DAILY [facility] Last Admin: 07/04/17 09:14 Dose: Not Given Lorazepam (Ativan) 2 mg IVP Q6H PRN; Protocol PRN Reason: Anxiety Magnesium Chloride (Slow-Mag) 64 mg PO TID [facility] Last Admin: 07/04/17 13:49 Dose: 64 mg Metoprolol Tartrate (Lopressor) 25 mg PO DAILY [facility] Last Admin: 07/04/17 09:15 Dose: 25 mg Potassium Chloride (K-Dur 20 Meq Er Tab) 20 meq PO BID [facility] Last Admin: 07/04/17 09:05 Dose: 20 meq Silver Sulfadiazine (Silvadene 1% 25 Gm) 0 gm TP DAILY [facility] Last Admin: 07/04/17 09:09 Dose: Not Given - Labs Labs: 07/04/17 06:00 07/04/17 06:00 - Constitutional Appears: Well, Non-toxic, No Acute Distress - Extremities Exam Additional comments: Vasc: DP and PT 1/4 bilaterally, CFT < 3 seconds x 10 digits, temperature warm to warm, edema noted to the left forefoot Ortho: tenderness noted with palpation to the site surrounding ulceration; severe hallux valgus bilaterally, lateral deviation of the digits noted, hammertoe contractures 2-4 noted Neuro: protective and gross sensation intact bilaterally Derm: ulceration at the medial plantar aspect of the 1st MPJ of left foot measuring approximately 1.5 cm x 2cm x . 2 cm. Wound base is 40% fibrotic, 60% granular with fibrotic slough noted to the plantar aspect of the ulceration. No purulence expressed from ulceration today; mild serous drainage noted; mild undermining noted to the ulceration plantarly; no tunneling noted; probe to bone ; erythema and malodorous (odor has significantly improved). No streaking noted. Discoloration/hyperpigmentated skin noted to the LE bilaterally. Macerated and intact periwound. - Neurological Exam Neurological Exam: Alert, Awake, Oriented x3 - Psychiatric Exam Psychiatric exam: Normal Affect, Normal Mood Assessment and Plan - Assessment and Plan (Free Text) Assessment: 61 year old male with infected left foot ulceration and OM Plan: Patient examined and evaluated Discussed with attending, Dr. Reyes afebrile, ESR 80, WBC continuing to decrease @ 2.7 HIV 1&2 negative RF IgM 9 XR findings IMPRESSION: Subluxation at 1st through 3rd metatarsal phalangeal articulation with valgus deformity. Pencil like narrowing of distal aspect of 2nd metatarsal. Possible juxta-articular erosion of distal 1st metatarsal with overlying soft tissue swelling, possibly due to gout. Psoriatic arthritis may also be considered for the generalized articular abnormality at the MTP joints. Circumscribed lucent lesion of the proximal 3rd metatarsal diaphysis with an appearance suggestive of enchondroma though this is not pathognomonic. Followup advised. MRI findings IMPRESSION: Cortical erosion and bone marrow edema at the lateral aspect of the distal 1st metatarsal head suspicious for osteomyelitis. Well defined cystic lesion at the proximal portion of the 3rd metatarsal bone. Severe arthritic degenerative changes and subluxation at the metatarsal- phalangeal joints. Wound culture result- Group G Streptococcus Ulceration cleansed with saline, dressed with silvadene DSD No surgical intervention at this time ID consulted, recs appreciated; pt on ceftriaxone 2g q24h and will need 4-6 weeks of abx -PICC placed LacHydrin prn Lotrimin to bilateral LE Pain mgmt per medicine Patient noncompliant with using surgical shoe; patient to be WBAT to heel in sx shoe Podiatry will continue to follow while in house
--- NOTE | 2017-07-04 19:34 | PN ---
DATE: SUBJECTIVE: The patient denies any chest pain or left foot pain. PHYSICAL EXAMINATION VITAL SIGNS: Blood pressure 170/90, heart rate 72, temperature 99.1, respirations 20. HEENT: Normocephalic. CHEST: Clear. HEART: S1 and S2 regular. EXTREMITIES: Dressing was applied to the left foot. LABORATORY DATA: Hemoglobin and hematocrit 12.2 and 35.2, white count 2.7, platelet count is 200,000. Today's SMA-7 is within normal limits at 111, magnesium is still below normal at 1.4. ASSESSMENT: 1. Dizziness on admission. 2. Left foot cellulitis with possible underlying osteomyelitis. 3. Hypomagnesemia and borderline hypokalemia. RECOMMENDATIONS: The patient did receive intravenous magnesium replacement today. Continue Slow-Mag at 64 mg t.i.d., Lopressor 25 mg daily, Lipitor 10 mg daily, and aspirin 81 mg daily. Nguyễn Lopez MD
[2017-07-05 07:50] LABS: MAGNESIUM 1.5 mg/dL (1.7-2.2)
[2017-07-05] MEDS: Insulin Lispro (humaLOG) MEDIUM Coverage SC SCH ×4 (07:52→21:17)
[2017-07-05] MEDS: Potassium Chloride 20 mEq ER Tab PO SCH ×2 (09:17→17:43)
[2017-07-05] MEDS: Clotrimazole 1% Top Soln(10 ml) TOP SCH ×2 (09:18→17:44)
[2017-07-05] MEDS: Ammonium Lactate 12% Cream (140 g) TOP SCH (09:18)
[2017-07-05] MEDS: cefTRIAXone 2 GM IN NS 2 GM/100 ML BAG IVPB SCH (09:19)
[2017-07-05] MEDS: Enoxaparin 30 mg Syringe SC SCH (09:19)
[2017-07-05] MEDS: Silver Sulfadiazine 1% Cream (25 gm) TP SCH (09:20)
[2017-07-05] MEDS: Magnesium Chloride 64 mg ER Tab PO SCH ×3 (09:20→17:43)
[2017-07-05] MEDS ORDERED: Vancomycin 2 GM in Sodium Chloride 0.9% 500 ML IVPB ONE (11:50)
--- NOTE | 2017-07-05 14:03 | CP.PCM.PN ---
Subjective - Date & Time of Evaluation Date of Evaluation: 07/05/17 Time of Evaluation: 10:00 - Subjective Subjective: Podiatry Progress Note for Dr. Gardner/Eric 61 year old male patient seen and evaluated at bedside with attending for left foot ulceration and OM. Patient resting comfortably, hemodynamically stable and NAD. Denies any acute events overnight. States pain to his left ulcer has diminished. Patient wearing surgical shoe to left foot at time of visit. Dressing clean/dry/intact. No other pedal complaints. Denies N/V/F/D/C/SOB/calf pain. Objective - Vital Signs/Intake and Output Vital Signs (last 24 hours): Temp Pulse Resp BP Pulse Ox 98.9 F 64 20 172/93 H 99 07/05/17 08:18 07/05/17 09:18 07/05/17 08:18 07/05/17 09:18 07/05/17 08:18 Intake and Output: 07/05/17 07/05/17 06:59 18:59 Intake Total 540 Output Total 0 Balance 540 - Medications Medications: Current Medications Acetaminophen (Tylenol 325mg Tab) 975 mg PO ONCE PRN PRN Reason: Fever >100.4 F Last Admin: 06/29/17 12:28 Dose: 975 mg Aspirin (Aspirin Chewable) 81 mg PO DAILY [facility] Last Admin: 07/05/17 09:17 Dose: 81 mg Atorvastatin Calcium (Lipitor) 10 mg PO DIN [facility] Last Admin: 07/04/17 17:36 Dose: 10 mg Clotrimazole (Lotrimin Af 1%) 0 ml TOP BID [facility] Last Admin: 07/05/17 09:18 Dose: Not Given Enoxaparin Sodium (Lovenox) 30 mg SC DAILY [facility] PRN Reason: Protocol Last Admin: 07/05/17 09:19 Dose: 30 mg Famotidine (Pepcid) 40 mg PO HS [facility] Last Admin: 07/04/17 21:15 Dose: 40 mg Vancomycin HCl 2 gm/ Sodium (Chloride) 500 mls @ 170 mls/hr IVPB ONCE ONE PRN Reason: Protocol Stop: 07/05/17 14:46 Last Admin: 07/05/17 13:33 Dose: 170 mls/hr Vancomycin HCl (Vancomycin 1gm) 1 gm in 250 mls @ 167 mls/hr IVPB Q12H [facility] PRN Reason: Protocol Stop: 08/02/17 22:01 Insulin Human Lispro (Humalog Med) 0 units SC ACHS [facility] PRN Reason: Protocol Last Admin: 07/05/17 11:30 Dose: Not Given Lactic Acid (Lac-Hydrin 12% Cream (140 G)) 1 ea TOP DAILY [facility] Last Admin: 07/05/17 09:18 Dose: 1 applic Lorazepam (Ativan) 2 mg IVP Q6H PRN; Protocol PRN Reason: Anxiety Magnesium Chloride (Slow-Mag) 128 mg PO TID [facility] Stop: 07/06/17 12:40 Last Admin: 07/05/17 13:39 Dose: 128 mg Metoprolol Tartrate (Lopressor) 25 mg PO DAILY [facility] Last Admin: 07/05/17 09:18 Dose: 25 mg Potassium Chloride (K-Dur 20 Meq Er Tab) 20 meq PO BID [facility] Last Admin: 07/05/17 09:17 Dose: 20 meq Silver Sulfadiazine (Silvadene 1% 25 Gm) 0 gm TP DAILY [facility] Last Admin: 07/05/17 09:20 Dose: Not Given - Labs Labs: 07/04/17 06:00 07/04/17 06:00 - Constitutional Appears: Well, Non-toxic, No Acute Distress - Extremities Exam Additional comments: Vasc: DP and PT 1/4 bilaterally, CFT < 3 seconds x 10 digits, temperature warm to warm, edema noted to the left forefoot Ortho: tenderness noted with palpation to the site surrounding ulceration; severe hallux valgus bilaterally, lateral deviation of the digits noted, hammertoe contractures 2-4 noted Neuro: protective and gross sensation intact bilaterally Derm: ulceration at the medial plantar aspect of the 1st MPJ of left foot measuring approximately 1.5 cm x 2cm x 0.2 cm. Wound base is 40% fibrotic, 60% granular; no fibrin/slough present this visit. No drainage noted; mild undermining noted to the ulceration plantarly; no tunneling noted; probe to bone ; erythema periwound; no malodor present. No streaking noted. Discoloration/ hyperpigmentated skin noted to the LE bilaterally. - Neurological Exam Neurological Exam: Alert, Awake, Oriented x3 - Psychiatric Exam Psychiatric exam: Normal Affect, Normal Mood Assessment and Plan - Assessment and Plan (Free Text) Assessment: 61 year old male with infected left foot ulceration and OM Plan: Patient examined and evaluated Discussed with attending, Dr. Reyes afebrile, ESR 80, WBC decreased @ 2.7 yesterday 07/04, f/u CBC HIV 1&2 negative RF IgM 9 XR findings IMPRESSION: Subluxation at 1st through 3rd metatarsal phalangeal articulation with valgus deformity. Pencil like narrowing of distal aspect of 2nd metatarsal. Possible juxta-articular erosion of distal 1st metatarsal with overlying soft tissue swelling, possibly due to gout. Psoriatic arthritis may also be considered for the generalized articular abnormality at the MTP joints. Circumscribed lucent lesion of the proximal 3rd metatarsal diaphysis with an appearance suggestive of enchondroma though this is not pathognomonic. Followup advised. MRI findings IMPRESSION: Cortical erosion and bone marrow edema at the lateral aspect of the distal 1st metatarsal head suspicious for osteomyelitis. Well defined cystic lesion at the proximal portion of the 3rd metatarsal bone. Severe arthritic degenerative changes and subluxation at the metatarsal- phalangeal joints. Wound culture result- Group G Streptococcus Ulceration cleansed with saline, dressed with silvadene DSD No surgical intervention at this time ID consulted, recs appreciated; pt on Vancomycin -PICC placed LacHydrin prn Lotrimin to bilateral LE Pain mgmt per medicine Continue WBAT in surgical shoe Podiatry will continue to follow patient while in house
--- NOTE | 2017-07-05 14:21 | PN ---
DATE: SUBJECTIVE: The patient denies any chest pain. PHYSICAL EXAMINATION: VITAL SIGNS: Blood pressure 172/93, heart rate 64, temperature 98.9. HEENT: Normocephalic. CHEST: Clear. HEART: S1 and S2 regular. EXTREMITIES: Dressing are applied to the left foot. LABORATORY DATA: Today's blood sugar are 200 and 144 respectively. Magnesium today is 1.5. ASSESSMENT: 1. Left foot cellulitis and osteomyelitis. 2. Hypomagnesemia. 3. Uncontrolled diabetes mellitus. RECOMMENDATION: Continue current aspirin, K-Dur, Lipitor, Lopressor, and IV vancomycin. Increase Slow-Mag to two tablets p.o. three times a day. Nguyễn Lopez MD
--- NOTE | 2017-07-05 15:34 | CP.PCM.PN ---
<Laura Mcgraw - Last Filed: 07/05/17 15:30> Subjective - Date & Time of Evaluation Date of Evaluation: 07/05/17 Time of Evaluation: 15:30 - Subjective Subjective: Laura Mcgraw, PGY1, Medicine Progress Note for Dr Antonio: Patient seen and examined at bedside. No acute events overnight. Denies foot pain, fever, chills, diaphoresis, nausea, vomiting, abdominal pain, leg swelling , dizziness, fatigue, headache, urinary symptoms. Objective - Vital Signs/Intake and Output Vital Signs (last 24 hours): Temp Pulse Resp BP Pulse Ox 98.9 F 64 20 172/93 H 99 07/05/17 08:18 07/05/17 09:18 07/05/17 08:18 07/05/17 09:18 07/05/17 08:18 Intake and Output: 07/05/17 07/05/17 06:59 18:59 Intake Total 540 780 Output Total 0 Balance 540 780 - Medications Medications: Current Medications Acetaminophen (Tylenol 325mg Tab) 975 mg PO ONCE PRN PRN Reason: Fever >100.4 F Last Admin: 06/29/17 12:28 Dose: 975 mg Aspirin (Aspirin Chewable) 81 mg PO DAILY [facility] Last Admin: 07/05/17 09:17 Dose: 81 mg Atorvastatin Calcium (Lipitor) 10 mg PO DIN [facility] Last Admin: 07/04/17 17:36 Dose: 10 mg Clotrimazole (Lotrimin Af 1%) 0 ml TOP BID [facility] Last Admin: 07/05/17 09:18 Dose: Not Given Enoxaparin Sodium (Lovenox) 30 mg SC DAILY [facility] PRN Reason: Protocol Last Admin: 07/05/17 09:19 Dose: 30 mg Famotidine (Pepcid) 40 mg PO HS [facility] Last Admin: 07/04/17 21:15 Dose: 40 mg Vancomycin HCl (Vancomycin 1gm) 1 gm in 250 mls @ 167 mls/hr IVPB Q12H [facility] PRN Reason: Protocol Stop: 08/02/17 22:01 Insulin Human Lispro (Humalog Med) 0 units SC ACHS [facility] PRN Reason: Protocol Last Admin: 07/05/17 11:30 Dose: Not Given Lactic Acid (Lac-Hydrin 12% Cream (140 G)) 1 ea TOP DAILY [facility] Last Admin: 07/05/17 09:18 Dose: 1 applic Lorazepam (Ativan) 2 mg IVP Q6H PRN; Protocol PRN Reason: Anxiety Magnesium Chloride (Slow-Mag) 128 mg PO TID [facility] Stop: 07/06/17 12:40 Last Admin: 07/05/17 13:39 Dose: 128 mg Metoprolol Tartrate (Lopressor) 25 mg PO DAILY [facility] Last Admin: 07/05/17 09:18 Dose: 25 mg Potassium Chloride (K-Dur 20 Meq Er Tab) 20 meq PO BID [facility] Last Admin: 07/05/17 09:17 Dose: 20 meq Silver Sulfadiazine (Silvadene 1% 25 Gm) 0 gm TP DAILY [facility] Last Admin: 07/05/17 09:20 Dose: Not Given - Labs Labs: 07/04/17 06:00 07/04/17 06:00 - Additional Findings Additional findings: - Constitutional Appears: Non-toxic, No Acute Distress, Older Than Stated Age - Head Exam Head Exam: ATRAUMATIC, NORMOCEPHALIC - Eye Exam Eye Exam: EOMI, PERRL. absent: Conjunctival injection, Scleral icterus Pupil Exam: PERRL - ENT Exam ENT Exam: Mucous Membranes Moist - Neck Exam Neck Exam: Full ROM - Respiratory Exam Respiratory Exam: Clear to Ausculation Bilateral. absent: Accessory Muscle Use , Respiratory Distress - Cardiovascular Exam Cardiovascular Exam: RRR, +S1, +S2. absent: Murmur - GI/Abdominal Exam GI & Abdominal Exam: Soft, Normal Bowel Sounds. absent: Distended, Firm, Rigid , Tenderness, Mass, Organomegaly, Rebound - Extremities Exam Extremities Exam: absent: Calf Tenderness, Pedal Edema Additional comments: Left foot covered in dressing, c/d/i - Back Exam Back Exam: NORMAL INSPECTION - Neurological Exam Neurological Exam: Alert, Awake, Oriented x3 - Psychiatric Exam Psychiatric exam: Normal Affect, Normal Mood - Skin Skin Exam: Dry, Normal Color, Warm Assessment and Plan - Assessment and Plan (Free Text) Assessment: 61 years old male with PMH HTN?, presents for sepsis, dizziness/near syncope, HTN urgency, left foot ulcer, hypomagnesemia, s/p PICC line insertion 07/02: Leukopenia: 2/2 medication induced (Ceftriaxone) - wbc trending down, 2.7 yesterday - Awaiting today's wbc. Cont to monitor. - If worsening, consider changing antibiotic. Await ID recs. Sepsis, resolved: - 2/2 osteomyelitis of left 1st metatarsal head. - Pt febrile 103.3 and tachycardic, given Tylenol in ED. Given Vanco and Zosyn x1 in ED. - wound culture, left foot grew Group G strep (no sensitivities done). Spoke to microbiology tech: said most Group G Strep are sensitive to PCN. - CXR neg for infiltrate, UA neg for infection, urine culture shows contamination. - blood cultures 06/29 (2/2) NTD - procal 0.42, ESR 80 and CRP >15, both elevated. - Left foot x ray shows subluxation at 1st through 3rd metatarsal phalangeal articulation with valgus deformity. Pencil like narrowing of distal aspect of 2nd metatarsal. Possible juxta-articular erosion of distal 1st metatarsal with overlying soft tissue swelling, possibly due to gout. Psoriatic arthritis may also be considered for the generalized articular abnormality at the MTP joints. Circumscribed lucent lesion of the proximal 3rd metatarsal diaphysis with an appearance suggestive of enchondroma though this is not pathognomonic. - MRI foot shows cortical erosion and bone marrow edema at lateral aspect of 1st metatarsal of head - s/o osteomyelitis. Well defined cystic lesion at proximal portion of 3rd metatarsal. Degenerative changes. severe arthritis and subluxation at metatarsal phalangeal joints. - Lactate 1.7 on admission. - Podiatry on board. Appreciate recs. Recommends no surgical intervention. + special shoes to go home on. - ID Dr Colindres, on board. Recommends Ceftriaxone 2 gm IV daily x 4-6 weeks. Can be switched midway to PO abx, depending on weekly repeat CRP/ESR, chem panel and imaging. Appreciate recs. - S/p right Right arm PICC line insertion 07/02, for shelter IV abx use. - Wbc trended down 7.6->3.2->2.7. Leukopenic. likely a side effect of Ceftriaxone. Will monitor and await ID recs for another antibiotic choice. - For now, will cont with IV ceftriaxone D4/4-6 weeks. Right SFA Occlusive disease: - Arterial LE doppler shows R SFA occulsive disease. - Carotid US shows b/l 20-39% in proximal ICA. - Dr Dent consulted. He does not plan any interventions. Diabetes: - Hgb A1C 6.9. - C/w ISS. BG 90s-130s. - Obtain good glycemic control in setting of osteomyelitis. - when discharged, will put on oral hypoglycemic agents Metformin or Glipizide. Elevated/indeterminate troponins: - Trop 0.06->0.09->0.08 - LDL 72, will maintain <70. - Echocardiogram EF 53%, no hypertrophy or valvular abnormalities. - Carotid US shows b/l 20-39% proximal ICA stenosis. - Cardio on board (dianne). Appreciate recs. No plans for stress test or invasive procedures noted. - Cont with ASA, statin and beta isaac. Dizziness, resolved: - 2/2 likely orthostatic vs cardiac etiology (arrhythmias, valvular abnormalities, acute ischemia) vs neurogenic etiology - Echo shows EF 53%, norml LF size/thickness. no valvular abnormalities. - carotid US shows b/l 20-39% stenosis in proximal ICA. - EKG shows S tachy, 109, prolonged QTc 479. - Remote tele monitoring - Dr Lopez on board. Appreciate recs. Started daily K dur 20 eq bid and slow mag 1 gm daily. Hypomagnesemia: - 0.8 on admission, repleted. - started on Slow Mag 1 gm BID. - Low mag today, repleted. Hypokalemia: - C/w K dur 20 meq PO bid as per Cardio. - Cont to monitor HTN urgency: - BP elevated 183/84 on admission. - Patient has been having HTN readings thru the hospital course, not complicated by pain. - Currently, pt on Lopressor 25 mg PO daily. - Consider adding Lisinopril (may help with hypokalemia as well). - Cont to monitor. DVT ppx: Lovenox 30 mg SQ GI PPX: Pepcid Dispo: Lives at a 2 family house by himself, and neighbors. 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 Currently awaiting - insurance approval for D/c home on IV abx. As per CM, pt does not have insurance. However, pt claims that he does have insurance. Case seen and discussed with Dr Antonio. Laura Mcgraw, PGY1 <Silvia Rashid - Last Filed: 07/07/17 17:23> Objective - Vital Signs/Intake and Output Vital Signs (last 24 hours): Temp Pulse Resp BP Pulse Ox 99.1 F 61 20 154/75 H 96 07/06/17 16:00 07/06/17 16:00 07/06/17 16:00 07/07/17 09:38 07/06/17 16:00 Intake and Output: 07/07/17 07/07/17 06:59 18:59 Intake Total 420 Balance 420 - Labs Labs: 07/07/17 08:15 07/07/17 08:15 Attending/Attestation - Attestation I have personally seen and examined this patient.: Yes I have fully participated in the care of the patient.: Yes I have reviewed all pertinent clinical information, including history, physical exam and plan: Yes Notes (Text): 07/07/17 17:20 Patient was seen and examined with medical charge entry specialist. Agreed with resident assessment and plan. 61 year old male was admitted sepsis secondary to left foot infection. MRI foot showed osteomyelitis. . Wound culture is growing Group G Strept.Patient was started on ceftriaxone, however he developed Neutropenia.Antibiotics has been changed to IV Vancomycin by ID.patient will need total 4 weeks of IV antibiotics. Arterial doppler showed SFA occlusive disease. IR evaluation was requested; no plan for surgical intervention. Continue with aspirin, statin and lopressor. Management plan was discussed in detail with patient Education was provided.
[2017-07-05 15:36] LABS: BASO # 0.03 K/mm3 (0.0-2.0); EOS # 0.2 (0.0-0.7); EOS % 7.8 % (1.5-5.0); GRAN # 1.74 (1.4-6.5); GRAN % 56.4 % (50.0-68.0); HEMATOCRIT 35.8 % (42.0-52.0); LYMPH # 0.5 (1.2-3.4); LYMPH % 16.6 % (22.0-35.0); MEAN CELL VOLUME 89.9 fl (80.0-105.0); MEAN CORPUSCULAR HEMOGLOBIN 31.2 pg (25.0-35.0); MEAN CORPUSCULAR HGB CONC 34.6 g/dl (31.0-37.0); MONO # 0.6 (0.1-0.6); MONO % 18.2 % (1.0-6.0); WHITE BLOOD COUNT 3.1 10^3/ul (4.5-11.0)
[2017-07-05 15:37] LABS: ALB/GLOB RATIO 0.9 (1.1-1.8); ALKALINE PHOSPHATASE 55 U/L (38-126); ALT/SGPT 33 U/L (7-56); AST/SGOT 28 U/L (17-59); BILIRUBIN,TOTAL 0.2 mg/dL (0.2-1.3); BLOOD UREA NITROGEN 13 mg/dL (7-21); CALCIUM 9.3 mg/dL (8.4-10.5); CARBON DIOXIDE 27 mmol/L (21-33); CHLORIDE 100 mmol/L (98-107); GFR AFRICAN-AMERICAN > 60; GLUCOSE,RANDOM 176 mg/dL (70-110); MAGNESIUM 1.5 mg/dL (1.7-2.2); POTASSIUM 3.9 mmol/L (3.6-5.0); SODIUM 135 mmol/L (132-148); TOTAL PROTEIN 6.5 g/dL (5.8-8.3)
--- NOTE | 2017-07-05 18:16 | PN ---
DATE: 07/05/2017 SUBJECTIVE: The patient is in bed, in no acute distress, was seen early this morning, in room 361. PHYSICAL EXAMINATION: VITAL SIGNS: Temperature is 98, blood pressure is 170/90, respiratory rate is 16. HEENT: Unremarkable. NECK: Supple. LUNGS: Have decreased breath sounds. HEART: Normal S1, S2. ABDOMEN: Soft, nontender. LABORATORY EXAMINATION: Reveals the patient's white count is 2.7, hemoglobin of 12, platelets of 200. Chemistries reveal the patient has a BUN of 10, creatinine of 1.0. Urinalysis is noted. HIV is negative. Microbiology reveals the group G streptococcus heavy growth. The patient's renal function reveals the patient did have a creatinine up to 1.3. Review of orders reveals the patient to be on ceftriaxone. ASSESSMENT AND PLAN: A 61-year-old male with alcohol abuse, presenting with sepsis with group G streptococcus cellulitis and osteomyelitis, on ceftriaxone, will need 4-6 weeks of antibiotics, currently on 2 g q.24 hours, and we would recommend CBC, SMA-18, sedimentation rate, C-reactive protein. Unfortunately, the patient's white count is on a downward trend, leukopenia, most likely beta-lactamase induced. We will discontinue the ceftriaxone and switch to vancomycin of the renal function creatinine was 1.3, must be careful with renal toxicity with a proteinuria on urinalysis, and the glomerular filtrate rate at this time is 60, we will to load vancomycin 2 g loading dose and followed by 1 g q.12 and discontinue the ceftriaxone and follow the renal function closely with a vancomycin trough level, follow the CBC to see if the resolution of the leukopenia and correction of the leukopenia. We will follow closely with you. Ayaan Colindres MD
[2017-07-05] MEDS: Vancomycin 1gm in NS 250ml 1 GM/250 ML BAG IVPB SCH (22:14)
[2017-07-06 06:47] LABS: BASO # 0.01 K/mm3 (0.0-2.0); BASO % 0.4 % (0.0-3.0); EOS # 0.2 (0.0-0.7); EOS % 7.2 % (1.5-5.0); GRAN # 1.51 (1.4-6.5); GRAN % 54.5 % (50.0-68.0); HEMATOCRIT 37.9 % (42.0-52.0); LYMPH # 0.5 (1.2-3.4); LYMPH % 19.1 % (22.0-35.0); MEAN CELL VOLUME 90.7 fl (80.0-105.0); MEAN CORPUSCULAR HEMOGLOBIN 30.9 pg (25.0-35.0); MEAN PLATELET VOLUME 8.9 fl (7.0-11.0); MONO # 0.5 (0.1-0.6); MONO % 18.8 % (1.0-6.0); RED CELL DISTRIBUTION WIDTH 12.2 % (11.5-14.5)
[2017-07-06 07:02] LABS: ALB/GLOB RATIO 0.9 (1.1-1.8); ALKALINE PHOSPHATASE 62 U/L (38-126); ALT/SGPT 35 U/L (7-56); AST/SGOT 32 U/L (17-59); BILIRUBIN,TOTAL 0.3 mg/dL (0.2-1.3); BLOOD UREA NITROGEN 12 mg/dL (7-21); CALCIUM 9.5 mg/dL (8.4-10.5); CARBON DIOXIDE 26 mmol/L (21-33); CHLORIDE 102 mmol/L (98-107); GFR AFRICAN-AMERICAN > 60; GLUCOSE,RANDOM 110 mg/dL (70-110); MAGNESIUM 1.5 mg/dL (1.7-2.2); SODIUM 135 mmol/L (132-148); TOTAL PROTEIN 7.1 g/dL (5.8-8.3)
[2017-07-06 07:41] LABS: WHITE BLOOD COUNT 2.8 10^3/ul (4.5-11.0)
[2017-07-06 08:11] VITALS: O2SAT 96
[2017-07-06] MEDS: Insulin Lispro (humaLOG) MEDIUM Coverage SC SCH ×4 (08:28→21:12)
[2017-07-06] MEDS ORDERED: Magnesium Sulfate 2 GM in Sodium Chloride 0.9% 100 ML IVPB ONE (09:13)
[2017-07-06] MEDS: Ammonium Lactate 12% Cream (140 g) TOP SCH (10:30)
[2017-07-06] MEDS: Silver Sulfadiazine 1% Cream (25 gm) TP SCH (10:30)
[2017-07-06] MEDS: Magnesium Chloride 64 mg ER Tab PO SCH (10:41)
[2017-07-06] MEDS: Enoxaparin 30 mg Syringe SC SCH (10:42)
[2017-07-06] MEDS: Potassium Chloride 20 mEq ER Tab PO SCH ×2 (10:42→17:27)
[2017-07-06] MEDS: Clotrimazole 1% Top Soln(10 ml) TOP SCH ×2 (10:44→17:28)
[2017-07-06] MEDS: Vancomycin 1gm in NS 250ml 1 GM/250 ML BAG IVPB SCH ×2 (12:10→21:41)
--- NOTE | 2017-07-06 12:55 | PN ---
DATE: 07/06/2017 SUBJECTIVE: The patient is in bed, in no acute distress, nontoxic. PHYSICAL EXAMINATION: VITAL SIGNS: Temperature is 99.7, blood pressure is 150/70, respiratory rate is 20, and heart rate of 73. HEENT: Unremarkable. NECK: Supple. LUNGS: Decreased breath sounds. HEART: Normal S1 and S2. ABDOMEN: Soft and nontender. LABORATORY DATA: Reveals white count of 2.8, hemoglobin of 12, and platelets of 312. BUN of 12 and creatinine of 1.0. Procalcitonin is 0.42. HIV is negative. Microbiology reveals group G strep in the left foot. MEDICATIONS: Reveals the patient to be on vancomycin. Dr. Mcgraw's progress note from yesterday is noted. ASSESSMENT AND PLAN: This is a 61-year-old male seen earlier this morning in room 361, bed 1 with alcohol abuse and presenting with sepsis with group G cellulitis and osteomyelitis on ceftriaxone, developed leukopenia and currently on IV vancomycin and left foot osteomyelitis and cellulitis with group G Strep. We will follow with you. Ayaan Colindres MD
--- NOTE | 2017-07-06 14:16 | PN ---
DATE: SUBJECTIVE: The patient denies any chest pain. PHYSICAL EXAMINATION: VITAL SIGNS: Blood pressure 152/69, heart rate 66, temperature 99.5, respirations 20. HEENT: Normocephalic. CHEST: Clear. HEART: S1 and S2 regular. EXTREMITIES: Dressing is applied to the left foot. LABORATORY DATA: Hemoglobin and hematocrit 12.9 and 37.9, white count 2.3, and platelet count 112,000. Today SMA-7 is within normal limits, magnesium is still below normal at 1.5. ASSESSMENT: 1. Left foot cellulitis and osteomyelitis of the first metatarsal head. 2. Hypomagnesemia. 3. Diabetes mellitus. RECOMMENDATIONS: Continue aspirin 81 mg once a day, K-Dur 20 mEq twice a day, Slow-Mag 2 tablets t.i.d. The patient did receive 2 grams of intravenous magnesium sulfate replacement today. There is an issue with the patient's long-term intravenous antibiotics because of lack of insurance. I did discuss that with the psychosocial rehabilitation counselor. Nguyễn Lopez MD
[2017-07-06 16:13] VITALS: PULSE 61; TEMP 99.1
--- NOTE | 2017-07-06 18:39 | CP.PCM.PN ---
<Laura Mcgraw - Last Filed: 07/06/17 18:35> Subjective - Date & Time of Evaluation Date of Evaluation: 07/06/17 Time of Evaluation: 18:35 - Subjective Subjective: Laura Mcgraw, PGY1, Medicine Progress Note for Dr Rashid: Patient seen and examined at bedside. No acute events overnight. Yesterday, pt' s BP was elevated SBP in 170s. Received Hydralazine 10 mg x1. Denies headache, foot pain, fever, chills, diaphoresis, nausea, vomiting, abdominal pain, leg swelling, dizziness, fatigue, headache, urinary symptoms. Objective - Vital Signs/Intake and Output Vital Signs (last 24 hours): Temp Pulse Resp BP Pulse Ox 99.1 F 61 20 139/75 96 07/06/17 16:00 07/06/17 16:00 07/06/17 16:00 07/06/17 16:00 07/06/17 16:00 Intake and Output: 07/06/17 07/06/17 06:59 18:59 Intake Total 600 1100 Balance 600 1100 - Medications Medications: Current Medications Acetaminophen (Tylenol 325mg Tab) 975 mg PO ONCE PRN PRN Reason: Fever >100.4 F Last Admin: 06/29/17 12:28 Dose: 975 mg Aspirin (Aspirin Chewable) 81 mg PO DAILY [facility] Last Admin: 07/06/17 10:42 Dose: 81 mg Atorvastatin Calcium (Lipitor) 10 mg PO DIN [facility] Last Admin: 07/06/17 17:27 Dose: 10 mg Clotrimazole (Lotrimin Af 1%) 0 ml TOP BID [facility] Last Admin: 07/06/17 17:28 Dose: Not Given Enoxaparin Sodium (Lovenox) 30 mg SC DAILY [facility] PRN Reason: Protocol Last Admin: 07/06/17 10:42 Dose: 30 mg Famotidine (Pepcid) 40 mg PO HS [facility] Last Admin: 07/05/17 21:18 Dose: 40 mg Vancomycin HCl (Vancomycin 1gm) 1 gm in 250 mls @ 167 mls/hr IVPB Q12H [facility] PRN Reason: Protocol Stop: 08/02/17 22:01 Last Admin: 07/06/17 12:10 Dose: 167 mls/hr Insulin Human Lispro (Humalog Med) 0 units SC ACHS [facility] PRN Reason: Protocol Last Admin: 07/06/17 16:57 Dose: Not Given Lactic Acid (Lac-Hydrin 12% Cream (140 G)) 1 ea TOP DAILY [facility] Last Admin: 07/06/17 10:30 Dose: Not Given Lisinopril (Zestril) 10 mg PO DAILY [facility] Last Admin: 07/06/17 13:04 Dose: 10 mg Lorazepam (Ativan) 2 mg IVP Q6H PRN; Protocol PRN Reason: Anxiety Metoprolol Tartrate (Lopressor) 25 mg PO DAILY [facility] Last Admin: 07/06/17 10:42 Dose: 25 mg Potassium Chloride (K-Dur 20 Meq Er Tab) 20 meq PO BID [facility] Last Admin: 07/06/17 17:27 Dose: 20 meq Silver Sulfadiazine (Silvadene 1% 25 Gm) 0 gm TP DAILY [facility] Last Admin: 07/06/17 10:30 Dose: Not Given - Labs Labs: 07/06/17 06:30 07/06/17 06:30 - Additional Findings Additional findings: - Constitutional Appears: Non-toxic, No Acute Distress, Older Than Stated Age - Head Exam Head Exam: ATRAUMATIC, NORMOCEPHALIC - Eye Exam Eye Exam: EOMI, PERRL. absent: Conjunctival injection, Scleral icterus Pupil Exam: PERRL - ENT Exam ENT Exam: Mucous Membranes Moist - Neck Exam Neck Exam: Full ROM - Respiratory Exam Respiratory Exam: Clear to Ausculation Bilateral. absent: Accessory Muscle Use , Respiratory Distress - Cardiovascular Exam Cardiovascular Exam: RRR, +S1, +S2. absent: Murmur - GI/Abdominal Exam GI & Abdominal Exam: Soft, Normal Bowel Sounds. absent: Distended, Firm, Rigid , Tenderness, Mass, Organomegaly, Rebound - Extremities Exam Extremities Exam: absent: Calf Tenderness, Pedal Edema Additional comments: R PICC line in place, c/d/i Left foot covered in dressing, c/d/i - Back Exam Back Exam: NORMAL INSPECTION - Neurological Exam Neurological Exam: Alert, Awake, Oriented x3 - Psychiatric Exam Psychiatric exam: Normal Affect, Normal Mood - Skin Skin Exam: Dry, Normal Color, Warm Assessment and Plan - Assessment and Plan (Free Text) Assessment: 61 years old male with PMH HTN?, presents for sepsis, dizziness/near syncope, HTN urgency, left foot ulcer, hypomagnesemia, s/p PICC line insertion 07/02: HTN: - SBPs in 170s. - On Lopressor 25 mg daily. - will add Lisinopril. Will trend BUN/Cr in 1 week after starting LM-i to r/o DARCIE. Leukopenia: 2/2 medication induced (Ceftriaxone) - wbc stable - D/cd Ceftriaxone 07/05, cont to monitor Sepsis, resolved: - 2/2 osteomyelitis of left 1st metatarsal head. - Pt febrile 103.3 and tachycardic, given Tylenol in ED. Given Vanco and Zosyn x1 in ED. - wound culture, left foot grew Group G strep (no sensitivities done). Spoke to microbiology tech: said most Group G Strep are sensitive to PCN. - CXR neg for infiltrate, UA neg for infection, urine culture shows contamination. - blood cultures 06/29 (2/2) NTD - procal 0.42, ESR 80 and CRP >15, both elevated. - Left foot x ray shows subluxation at 1st through 3rd metatarsal phalangeal articulation with valgus deformity. Pencil like narrowing of distal aspect of 2nd metatarsal. Possible juxta-articular erosion of distal 1st metatarsal with overlying soft tissue swelling, possibly due to gout. Psoriatic arthritis may also be considered for the generalized articular abnormality at the MTP joints. Circumscribed lucent lesion of the proximal 3rd metatarsal diaphysis with an appearance suggestive of enchondroma though this is not pathognomonic. - MRI foot shows cortical erosion and bone marrow edema at lateral aspect of 1st metatarsal of head - s/o osteomyelitis. Well defined cystic lesion at proximal portion of 3rd metatarsal. Degenerative changes. severe arthritis and subluxation at metatarsal phalangeal joints. - Lactate 1.7 on admission. - Podiatry on board. Appreciate recs. Recommends no surgical intervention. + special shoes to go home on. - ID Dr Colindres, on board. Switched to IV Vanco q 12h D5/6 weeks. Patient does not have insurance as per , needs a once a day antibiotic for lidia care. Discussed with Dr Colindres, amenable to change to Levaquin. Once d/c, will have weekly crp, esr, cmp, imaging to monitor progress and exact duration of therapy. - S/p right Right arm PICC line insertion 07/02, for halfway IV abx use. -Remains leukopenic, but stable. likely a side effect of Ceftriaxone (pt's earlier abx). - For now, will cont with IV Vanco D5/4-6 weeks of targeted therapy. Right SFA Occlusive disease: - Arterial LE doppler shows R SFA occulsive disease. - Carotid US shows b/l 20-39% in proximal ICA. - Dr Dent consulted. He does not plan any interventions. Diabetes: - Hgb A1C 6.9. - C/w ISS. BG 90s-130s. - Obtain good glycemic control in setting of osteomyelitis. - when discharged, will put on oral hypoglycemic agents Metformin or Glipizide. Elevated/indeterminate troponins: - Trop 0.06->0.09->0.08 - LDL 72, will maintain <70. - Echocardiogram EF 53%, no hypertrophy or valvular abnormalities. - Carotid US shows b/l 20-39% proximal ICA stenosis. - Cardio on board (dianne). Appreciate recs. No plans for stress test or invasive procedures noted. - Cont with ASA, statin and beta isaac. Dizziness, resolved: - 2/2 likely orthostatic vs cardiac etiology (arrhythmias, valvular abnormalities, acute ischemia) vs neurogenic etiology - Echo shows EF 53%, norml LF size/thickness. no valvular abnormalities. - carotid US shows b/l 20-39% stenosis in proximal ICA. - EKG shows S tachy, 109, prolonged QTc 479. - Remote tele monitoring - Dr Lopez on board. Appreciate recs. Started daily K dur 20 eq bid and slow mag 1 gm daily. Hypomagnesemia: - 0.8 on admission, repleted. - started on Slow Mag 1 gm BID. - Low mag today, repleted. Hypokalemia: - C/w K dur 20 meq PO bid as per Cardio. - Cont to monitor HTN urgency: - BP elevated 183/84 on admission. - Patient has been having HTN readings thru the hospital course, not complicated by pain. - Currently, pt on Lopressor 25 mg PO daily. - Consider adding Lisinopril (may help with hypokalemia as well). - Cont to monitor. DVT ppx: Lovenox 30 mg SQ GI PPX: Pepcid Dispo: Lives at a 2 family house by himself, and neighbors. 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 Pt has no insurance as per , will need Lidia care for IV abx use, currently awaiting. Case seen and discussed with Dr Pearce. Laura Mcgraw, PGY1 <Silvia Rashid - Last Filed: 07/07/17 17:25> Objective - Vital Signs/Intake and Output Vital Signs (last 24 hours): Temp Pulse Resp BP Pulse Ox 99.1 F 61 20 154/75 H 96 07/06/17 16:00 07/06/17 16:00 07/06/17 16:00 07/07/17 09:38 07/06/17 16:00 Intake and Output: 07/07/17 07/07/17 06:59 18:59 Intake Total 420 Balance 420 - Labs Labs: 07/07/17 08:15 07/07/17 08:15 Attending/Attestation - Attestation I have personally seen and examined this patient.: Yes I have fully participated in the care of the patient.: Yes I have reviewed all pertinent clinical information, including history, physical exam and plan: Yes Notes (Text): 07/07/17 17:24 Patient was seen and examined with behavioral medical director. Agreed with resident assessment and plan. 61 year old male was admitted sepsis secondary to left foot infection. MRI foot showed osteomyelitis. . Wound culture is growing Group G Strept.Patient was started on ceftriaxone, however he developed Neutropenia.Antibiotics has been changed to IV Vancomycin by ID.patient will need total 4 weeks of IV antibiotics. Arterial doppler showed SFA occlusive disease. IR evaluation was requested; no plan for surgical intervention. Continue with aspirin, statin and lopressor.Patient blood pressure is running high.Lisinopril has been added. Case was discussed with ID. Case management is working on disposition. Management plan was discussed in detail with patient Education was provided.
[2017-07-07] MEDS: Insulin Lispro (humaLOG) MEDIUM Coverage SC SCH ×2 (07:39→12:47)
[2017-07-07 08:25] LABS: BASO # 0.02 K/mm3 (0.0-2.0); BASO % 0.6 % (0.0-3.0); EOS # 0.2 (0.0-0.7); EOS % 6.4 % (1.5-5.0); GRAN # 1.67 (1.4-6.5); GRAN % 53.5 % (50.0-68.0); HEMATOCRIT 37.2 % (42.0-52.0); LYMPH # 0.7 (1.2-3.4); LYMPH % 21.2 % (22.0-35.0); MEAN CELL VOLUME 90.7 fl (80.0-105.0); MEAN CORPUSCULAR HEMOGLOBIN 31.2 pg (25.0-35.0); MEAN CORPUSCULAR HGB CONC 34.4 g/dl (31.0-37.0); MEAN PLATELET VOLUME 8.9 fl (7.0-11.0); MONO # 0.6 (0.1-0.6); MONO % 18.3 % (1.0-6.0); RED CELL DISTRIBUTION WIDTH 12.2 % (11.5-14.5); WHITE BLOOD COUNT 3.1 10^3/ul (4.5-11.0)
[2017-07-07 08:35] LABS: ALB/GLOB RATIO 0.9 (1.1-1.8); ALKALINE PHOSPHATASE 70 U/L (38-126); ALT/SGPT 35 U/L (7-56); AST/SGOT 36 U/L (17-59); BILIRUBIN,TOTAL 0.3 mg/dL (0.2-1.3); BLOOD UREA NITROGEN 11 mg/dL (7-21); CALCIUM 9.5 mg/dL (8.4-10.5); CARBON DIOXIDE 27 mmol/L (21-33); CHLORIDE 102 mmol/L (98-107); GFR AFRICAN-AMERICAN > 60; GLUCOSE,RANDOM 114 mg/dL (70-110); MAGNESIUM 1.7 mg/dL (1.7-2.2); PHOSPHOROUS 3.8 mg/dL (2.5-4.5); POTASSIUM 4.4 mmol/L (3.6-5.0); SODIUM 137 mmol/L (132-148); TOTAL PROTEIN 7.4 g/dL (5.8-8.3)
--- NOTE | 2017-07-07 08:50 | PN ---
DATE: 07/06/2017 SUBJECTIVE: This is a 61-year-old male seen at bedside for left foot infection. The patient states that his dressing was changed today by the nurse and we decided to leave it intact until tomorrow morning. The patient has group G cellulitis with osteomyelitis to the left foot bunion area. He is on Rocephin. Apparently, the patient has developed leukopenia and he has been kept in-house in order to monitor leukopenia. PHYSICAL EXAMINATION VITAL SIGNS: Reviewed. His temperature is 99.1, his blood pressure is 139/75 and his respirations are 20. LABORATORY DATA: Also reviewed. His white blood cell count has dropped to 2.8 with H and H of 12.9 and 37.9. The patient's chemistry is grossly within normal today, although he does run high glucose levels with random sticking. The patient's microbiology as noted positive for group G strep. The patient's dressing was clean, dry and intact and there is no breakthrough drainage. The patient will be seen and followed in the morning, at which time the wound will be evaluated. Taisha Reyes DPM
[2017-07-07] MEDS: Potassium Chloride 20 mEq ER Tab PO SCH (09:38)
[2017-07-07] MEDS: Ammonium Lactate 12% Cream (140 g) TOP SCH (09:38)
[2017-07-07] MEDS: Enoxaparin 30 mg Syringe SC SCH (09:39)
[2017-07-07] MEDS: Clotrimazole 1% Top Soln(10 ml) TOP SCH (09:39)
[2017-07-07 09:40] VITALS: BP 154/75
[2017-07-07] MEDS: Silver Sulfadiazine 1% Cream (25 gm) TP SCH (09:40)
[2017-07-07] MEDS: Vancomycin 1gm in NS 250ml 1 GM/250 ML BAG IVPB SCH (09:56)
[2017-07-07] MEDS ORDERED: Propofol 10 mg/ml Inj (20 ML) ONE (12:26)
--- NOTE | 2017-07-07 13:30 | CP.PCM.DIS ---
<Laura Mcgraw - Last Filed: 07/07/17 16:35> Provider - Provider Date of Admission: 06/29/17 14:02 Attending physician: Silvia Rashid MD Consults: ROSALIA Lopez Time Spent in preparation of Discharge (in minutes): 35 Diagnosis - Discharge Diagnosis (1) Osteomyelitis Status: Acute (2) Diabetes mellitus Status: Acute (3) Foot infection Status: Acute (4) High risk for sepsis Status: Acute Hospital Course - Lab Results Lab Results: Micro Results 06/29/17 15:00 Blood Blood Culture - Final NO GROWTH AFTER 5 DAYS 06/29/17 15:00 Blood Gram Stain - Final TEST NOT PERFORMED Most Recent Lab Values WBC 3.1 10^3/ul (4.5-11.0) L 07/07/17 08:15 RBC 4.10 10^6/uL (3.5-6.1) 07/07/17 08:15 Hgb 12.8 g/dL (14.0-18.0) L 07/07/17 08:15 Hct 37.2 % (42.0-52.0) L 07/07/17 08:15 MCV 90.7 fl (80.0-105.0) 07/07/17 08:15 MCH 31.2 pg (25.0-35.0) 07/07/17 08:15 MCHC 34.4 g/dl (31.0-37.0) 07/07/17 08:15 RDW 12.2 % (11.5-14.5) 07/07/17 08:15 Plt Count 202 10^3/uL (120.0-450.0) 07/07/17 08:15 MPV 8.9 fl (7.0-11.0) 07/07/17 08:15 Gran % 53.5 % (50.0-68.0) 07/07/17 08:15 Lymph % (Auto) 21.2 % (22.0-35.0) L 07/07/17 08:15 Mcclain % (Auto) 18.3 % (1.0-6.0) H 07/07/17 08:15 Eos % (Auto) 6.4 % (1.5-5.0) H 07/07/17 08:15 Baso % (Auto) 0.6 % (0.0-3.0) 07/07/17 08:15 Gran # 1.67 (1.4-6.5) 07/07/17 08:15 Lymph # 0.7 (1.2-3.4) L 07/07/17 08:15 Mcclain # 0.6 (0.1-0.6) 07/07/17 08:15 Eos # 0.2 (0.0-0.7) 07/07/17 08:15 Baso # 0.02 K/mm3 (0.0-2.0) 07/07/17 08:15 Neutrophils % (Manual) 91 % (50.0-70.0) H 06/29/17 12:20 Lymphocytes % (Manual) 6 % (22.0-35.0) L 06/29/17 12:20 Monocytes % (Manual) 3 % (1.0-6.0) 06/29/17 12:20 Platelet Evaluation Normal (NORMAL) 06/29/17 12:20 Anisocytosis (manual) Slight 06/29/17 12:20 ESR 80 mm/hr (0.00-15.0) H 06/29/17 14:00 pO2 57 mm/Hg (30-55) H 06/29/17 12:20 VBG pH 7.46 (7.32-7.43) H 06/29/17 12:20 VBG pCO2 39.0 (40-60) L 06/29/17 12:20 VBG HCO3 27.7 mmol/l (21-28) 06/29/17 12:20 VBG Total CO2 28.9 mmol.L (22-28) H 06/29/17 12:20 VBG O2 Sat (Calc) 92.0 % (40-65) H 06/29/17 12:20 VBG Base Excess 3.7 mmol/L (0.0-2.0) H 06/29/17 12:20 VBG Potassium 4.0 mmol/L (3.6-5.2) 06/29/17 12:20 Sodium 137.0 mmol/L (132-148) 06/29/17 12:20 Chloride 103.0 mmol/L (98-107) 06/29/17 12:20 Glucose 169 mg/dl (75-110) H 06/29/17 12:20 Lactate 1.7 mmol/L (0.7-2.1) 06/29/17 12:20 FiO2 21.0 % 06/29/17 12:20 Sodium 137 mmol/L (132-148) 07/07/17 08:15 Potassium 4.4 mmol/L (3.6-5.0) 07/07/17 08:15 Chloride 102 mmol/L (98-107) 07/07/17 08:15 Carbon Dioxide 27 mmol/L (21-33) 07/07/17 08:15 Anion Gap 13 (10-20) 07/07/17 08:15 BUN 11 mg/dL (7-21) 07/07/17 08:15 Creatinine 1.4 mg/dl (0.8-1.5) 07/07/17 08:15 Est GFR ( Amer) > 60 07/07/17 08:15 Est GFR (Non-Af Amer) 52 07/07/17 08:15 POC Glucose (mg/dL) 172 mg/dL (65-110) H 07/07/17 11:12 Random Glucose 114 mg/dL (70-110) H 07/07/17 08:15 Hemoglobin A1c 6.9 % (4.2-6.5) H 07/01/17 06:00 Calcium 9.5 mg/dL (8.4-10.5) 07/07/17 08:15 Phosphorus 3.8 mg/dL (2.5-4.5) 07/07/17 08:15 Magnesium 1.7 mg/dL (1.7-2.2) 07/07/17 08:15 Total Bilirubin 0.3 mg/dL (0.2-1.3) 07/07/17 08:15 AST 36 U/L (17-59) 07/07/17 08:15 ALT 35 U/L (7-56) 07/07/17 08:15 Alkaline Phosphatase 70 U/L (38-126) 07/07/17 08:15 Lactate Dehydrogenase 472 U/L (333-699) 06/30/17 03:55 Total Creatine Kinase 225 U/L (35-230) 06/30/17 03:55 CK-MB (CK-2) 2.9 ng/mL (0.0-3.6) 06/29/17 23:14 CK-MB (CK-2) % Cancelled 06/29/17 23:14 Troponin I 0.08 ng/mL 06/30/17 03:55 C-React Prot High Sens > 15.00 mg/L (1.00-3.00) H 06/29/17 14:00 Total Protein 7.4 g/dL (5.8-8.3) 07/07/17 08:15 Albumin 3.5 g/dL (3.0-4.8) 07/07/17 08:15 Globulin 3.9 gm/dL 07/07/17 08:15 Albumin/Globulin Ratio 0.9 (1.1-1.8) L 07/07/17 08:15 Triglycerides 73 mg/dL (35-160) 06/29/17 12:20 Cholesterol 148 mg/dL (130-200) 06/29/17 12:20 LDL Cholesterol Direct 72 mg/dL (0-129) 06/29/17 12:20 HDL Cholesterol 49 mg/dL (29-60) 06/29/17 12:20 Phospholipids 138 mg/dL (151-264) L 07/05/17 15:00 Procalcitonin 0.42 NG/ML (0.19-0.49) 06/29/17 12:20 Venous Blood Potassium 4.0 mmol/L (3.6-5.2) 06/29/17 12:20 Urine Color Yellow (YELLOW) 06/29/17 12:20 Urine Appearance Clear (CLEAR) 06/29/17 12:20 Urine pH 6.0 (4.7-8.0) 06/29/17 12:20 Ur Specific Webster >= 1.030 (1.005-1.035) 06/29/17 12:20 Urine Protein >=300 mg/dL (<30 mg/dL) H 06/29/17 12:20 Urine Glucose (UA) 100 mg/dL (NEGATIVE) H 06/29/17 12:20 Urine Ketones Negative mg/dL (NEGATIVE) 06/29/17 12:20 Urine Blood Moderate (NEGATIVE) H 06/29/17 12:20 Urine Nitrate Negative (NEGATIVE) 06/29/17 12:20 Urine Bilirubin Negative (NEGATIVE) 06/29/17 12:20 Urine Urobilinogen 0.2 E.U./dL (<1 E.U./dL) 06/29/17 12:20 Ur Leukocyte Esterase Negative Zachery/uL (NEGATIVE) 06/29/17 12:20 Urine RBC 1 - 3 /hpf (0-2) 06/29/17 12:20 Urine WBC 1 - 3 /hpf (0-6) 06/29/17 12:20 Ur Epithelial Cells 1 - 3 /hpf (0-5) 06/29/17 12:20 Urine Bacteria Few (NEG) 06/29/17 12:20 Urine Other Usperm 06/29/17 12:20 Alcohol, Quantitative < 10 mg/dL (0-10) 06/29/17 15:37 Rheumatoid Factor IgG <5 U (<=6) 06/29/17 14:00 Rheumatoid Factor IgA <5 U (<=6) 06/29/17 14:00 Rheumatoid Factor IgM 9 U (<=6) H 06/29/17 14:00 HIV 1&2 Ag/Ab, 4th Gen Nonreactive (Nonreactive) 07/01/17 06:00 - Hospital Course Hospital Course: 61 year old male with no PMH 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 Pt states that he was in his usual state of health this morning, went to work, and then felt dizzy while he was heading towards the bathroom. Verbalizes increased urinary frequency for past month, denies hematuria, dysuria, hesitancy. Pt felt like he was "about to pass out." Denies LOC, chest pain, sob , cough, abdominal pain, diarrhea, constipation, leg swelling. Pt is complaining of left foot pain that started a month ago, pt does not recall any trauma or prior infection to the area. Pt has some dull pain at the site, denies any purulent drainage. Pt admits to fever this morning, however, denies any chills, diaphoresis, headache, neck pain, food intolerance, weight loss. On imaging, pt was found to have an osteomyelitis of his distal first metatarsal head lateral aspect. He was started on IV antibiotics as per ID. Pt was also hypertensive with no obvious pain/stressors thru the admission, had elevated HGb A1C, indeterminate trops. Cardiology started him on BB, statin, ASA 81. Echocardiogram showed ef 53% and was normal. CT head negative for acute stroke, Carotid US revealed 20-39% stenosis of ICA. 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 Cardiology did not want any invasive procedure as well in setting of acute infection. Wound culture grew Group G strep. His Magnesium and K were also low, requiring replacements. Pt required prolonged 4-6 weeks of IV/PO antibiotics, received right sided PICC line. Pt does not have any insurance and was set with outpatient clinic at [facility] to get daily ertapenem infusions for 13 days. Weekly cbc, cmp, crp will also be monitored to determine switching to PO antibiotics (likely levaquin). Explained the plan in detail to patient. Patient agrees to follow up. Discharge Exam - Additional Findings Additional findings: - Constitutional Appears: Non-toxic, No Acute Distress, Older Than Stated Age - Head Exam Head Exam: ATRAUMATIC, NORMOCEPHALIC - Eye Exam Eye Exam: EOMI, PERRL. absent: Conjunctival injection, Scleral icterus Pupil Exam: PERRL - ENT Exam ENT Exam: Mucous Membranes Moist - Neck Exam Neck Exam: Full ROM - Respiratory Exam Respiratory Exam: Clear to Ausculation Bilateral. absent: Accessory Muscle Use , Respiratory Distress - Cardiovascular Exam Cardiovascular Exam: RRR, +S1, +S2. absent: Murmur - GI/Abdominal Exam GI & Abdominal Exam: Soft, Normal Bowel Sounds. absent: Distended, Firm, Rigid , Tenderness, Mass, Organomegaly, Rebound - Extremities Exam Extremities Exam: absent: Calf Tenderness, Pedal Edema Additional comments: R PICC line in place, c/d/i Left foot covered in dressing, c/d/i - Back Exam Back Exam: NORMAL INSPECTION - Neurological Exam Neurological Exam: Alert, Awake, Oriented x3 - Psychiatric Exam Psychiatric exam: Normal Affect, Normal Mood - Skin Skin Exam: Dry, Normal Color, Warm Discharge Plan - Discharge Medications Prescriptions: Ammonium Lactate 12% [Lac-Hydrin 12% Cream (140 g)] 1 ea TOP DAILY 45 Days tube Aspirin [Aspirin Chewable] 81 mg PO DAILY 30 Days chew Atorvastatin [Lipitor] 10 mg PO DIN 30 Days tab Clotrimazole 1% [Lotrimin AF 1%] 70.7 % TOP BID 45 Days bottle Ertapenem 1gm in NS 50ml [Invanz] 1 gm IV DAILY 13 Days bag Famotidine [Pepcid] 40 mg PO HS 30 Days tab Lisinopril [Zestril] 10 mg PO DAILY 30 Days tab metFORMIN [glucOPHAGE] 500 mg PO BID 30 Days tab Metoprolol Tartrate [Lopressor] 25 mg PO DAILY 30 Days tab Potassium Chloride [K-Dur 20 mEq ER Tab] 20 meq PO BID 15 Days tab Silver Sulfadiazine 1% 25 gm [Silvadene 1% 25 gm] 25 gr TP DAILY 45 Days cream - Follow Up Plan Condition: FAIR Disposition: HOME/ ROUTINE Patient education suggested?: Yes Instructions: Osteomyelitis (DC), Diabetes Mellitus Type 2 in Adults (DC), Peripherally Inserted Central Catheters and Midline Catheters (DC), Dizziness ( GEN) Additional Instructions: - You were diagnosed with an infection in your left foot. You were treated for it via intravenous antibiotics due to the deep nature of the infection in your bone. You are discharged on Ertapenem 1 gm IV daily- antibiotic to go home on for 13 days - you will complete a total of 2 weeks of IV antibiotics. You will need to come to the outpatient center daily to get your IV medication through [facility]. You will keep following with ID doctor and a primary care doctor outpatient. Based on your weekly blood test and exams, you will also need 2 more weeks of oral antibiotics (Levaquin) after the IV course. - You were also diagnosed with hypertension, diabetes and high cholesterol. In addition to dietary changes, you are discharged on Metformin 500 mg PO two times daily, Metoprolol, Lisinopril, Lipitor. - Please follow up with PMD/delta care in 1 week. Follow up with Infectious disease doctor in 1 week. - Please return to us if any concerns. Referrals: [facility], [Non-Staff] - <Silvia Rashid - Last Filed: 07/07/17 17:29> Provider - Provider Date of Admission: 06/29/17 14:02 Attending physician: Silvia Rashid MD Hospital Course - Lab Results Lab Results: Micro Results 06/29/17 15:00 Blood Blood Culture - Final NO GROWTH AFTER 5 DAYS 06/29/17 15:00 Blood Gram Stain - Final TEST NOT PERFORMED Most Recent Lab Values WBC 3.1 10^3/ul (4.5-11.0) L 07/07/17 08:15 RBC 4.10 10^6/uL (3.5-6.1) 07/07/17 08:15 Hgb 12.8 g/dL (14.0-18.0) L 07/07/17 08:15 Hct 37.2 % (42.0-52.0) L 07/07/17 08:15 MCV 90.7 fl (80.0-105.0) 07/07/17 08:15 MCH 31.2 pg (25.0-35.0) 07/07/17 08:15 MCHC 34.4 g/dl (31.0-37.0) 07/07/17 08:15 RDW 12.2 % (11.5-14.5) 07/07/17 08:15 Plt Count 202 10^3/uL (120.0-450.0) 07/07/17 08:15 MPV 8.9 fl (7.0-11.0) 07/07/17 08:15 Gran % 53.5 % (50.0-68.0) 07/07/17 08:15 Lymph % (Auto) 21.2 % (22.0-35.0) L 07/07/17 08:15 Mcclain % (Auto) 18.3 % (1.0-6.0) H 07/07/17 08:15 Eos % (Auto) 6.4 % (1.5-5.0) H 07/07/17 08:15 Baso % (Auto) 0.6 % (0.0-3.0) 07/07/17 08:15 Gran # 1.67 (1.4-6.5) 07/07/17 08:15 Lymph # 0.7 (1.2-3.4) L 07/07/17 08:15 Mcclain # 0.6 (0.1-0.6) 07/07/17 08:15 Eos # 0.2 (0.0-0.7) 07/07/17 08:15 Baso # 0.02 K/mm3 (0.0-2.0) 07/07/17 08:15 Neutrophils % (Manual) 91 % (50.0-70.0) H 06/29/17 12:20 Lymphocytes % (Manual) 6 % (22.0-35.0) L 06/29/17 12:20 Monocytes % (Manual) 3 % (1.0-6.0) 06/29/17 12:20 Platelet Evaluation Normal (NORMAL) 06/29/17 12:20 Anisocytosis (manual) Slight 06/29/17 12:20 ESR 80 mm/hr (0.00-15.0) H 06/29/17 14:00 pO2 57 mm/Hg (30-55) H 06/29/17 12:20 VBG pH 7.46 (7.32-7.43) H 06/29/17 12:20 VBG pCO2 39.0 (40-60) L 06/29/17 12:20 VBG HCO3 27.7 mmol/l (21-28) 06/29/17 12:20 VBG Total CO2 28.9 mmol.L (22-28) H 06/29/17 12:20 VBG O2 Sat (Calc) 92.0 % (40-65) H 06/29/17 12:20 VBG Base Excess 3.7 mmol/L (0.0-2.0) H 06/29/17 12:20 VBG Potassium 4.0 mmol/L (3.6-5.2) 06/29/17 12:20 Sodium 137.0 mmol/L (132-148) 06/29/17 12:20 Chloride 103.0 mmol/L (98-107) 06/29/17 12:20 Glucose 169 mg/dl (75-110) H 06/29/17 12:20 Lactate 1.7 mmol/L (0.7-2.1) 06/29/17 12:20 FiO2 21.0 % 06/29/17 12:20 Sodium 137 mmol/L (132-148) 07/07/17 08:15 Potassium 4.4 mmol/L (3.6-5.0) 07/07/17 08:15 Chloride 102 mmol/L (98-107) 07/07/17 08:15 Carbon Dioxide 27 mmol/L (21-33) 07/07/17 08:15 Anion Gap 13 (10-20) 07/07/17 08:15 BUN 11 mg/dL (7-21) 07/07/17 08:15 Creatinine 1.4 mg/dl (0.8-1.5) 07/07/17 08:15 Est GFR ( Amer) > 60 07/07/17 08:15 Est GFR (Non-Af Amer) 52 07/07/17 08:15 POC Glucose (mg/dL) 172 mg/dL (65-110) H 07/07/17 11:12 Random Glucose 114 mg/dL (70-110) H 07/07/17 08:15 Hemoglobin A1c 6.9 % (4.2-6.5) H 07/01/17 06:00 Calcium 9.5 mg/dL (8.4-10.5) 07/07/17 08:15 Phosphorus 3.8 mg/dL (2.5-4.5) 07/07/17 08:15 Magnesium 1.7 mg/dL (1.7-2.2) 07/07/17 08:15 Total Bilirubin 0.3 mg/dL (0.2-1.3) 07/07/17 08:15 AST 36 U/L (17-59) 07/07/17 08:15 ALT 35 U/L (7-56) 07/07/17 08:15 Alkaline Phosphatase 70 U/L (38-126) 07/07/17 08:15 Lactate Dehydrogenase 472 U/L (333-699) 06/30/17 03:55 Total Creatine Kinase 225 U/L (35-230) 06/30/17 03:55 CK-MB (CK-2) 2.9 ng/mL (0.0-3.6) 06/29/17 23:14 CK-MB (CK-2) % Cancelled 06/29/17 23:14 Troponin I 0.08 ng/mL 06/30/17 03:55 C-React Prot High Sens > 15.00 mg/L (1.00-3.00) H 06/29/17 14:00 Total Protein 7.4 g/dL (5.8-8.3) 07/07/17 08:15 Albumin 3.5 g/dL (3.0-4.8) 07/07/17 08:15 Globulin 3.9 gm/dL 07/07/17 08:15 Albumin/Globulin Ratio 0.9 (1.1-1.8) L 07/07/17 08:15 Triglycerides 73 mg/dL (35-160) 06/29/17 12:20 Cholesterol 148 mg/dL (130-200) 06/29/17 12:20 LDL Cholesterol Direct 72 mg/dL (0-129) 06/29/17 12:20 HDL Cholesterol 49 mg/dL (29-60) 06/29/17 12:20 Phospholipids 138 mg/dL (151-264) L 07/05/17 15:00 Procalcitonin 0.42 NG/ML (0.19-0.49) 06/29/17 12:20 Venous Blood Potassium 4.0 mmol/L (3.6-5.2) 06/29/17 12:20 Urine Color Yellow (YELLOW) 06/29/17 12:20 Urine Appearance Clear (CLEAR) 06/29/17 12:20 Urine pH 6.0 (4.7-8.0) 06/29/17 12:20 Ur Specific Webster >= 1.030 (1.005-1.035) 06/29/17 12:20 Urine Protein >=300 mg/dL (<30 mg/dL) H 06/29/17 12:20 Urine Glucose (UA) 100 mg/dL (NEGATIVE) H 06/29/17 12:20 Urine Ketones Negative mg/dL (NEGATIVE) 06/29/17 12:20 Urine Blood Moderate (NEGATIVE) H 06/29/17 12:20 Urine Nitrate Negative (NEGATIVE) 06/29/17 12:20 Urine Bilirubin Negative (NEGATIVE) 06/29/17 12:20 Urine Urobilinogen 0.2 E.U./dL (<1 E.U./dL) 06/29/17 12:20 Ur Leukocyte Esterase Negative Zachery/uL (NEGATIVE) 06/29/17 12:20 Urine RBC 1 - 3 /hpf (0-2) 06/29/17 12:20 Urine WBC 1 - 3 /hpf (0-6) 06/29/17 12:20 Ur Epithelial Cells 1 - 3 /hpf (0-5) 06/29/17 12:20 Urine Bacteria Few (NEG) 06/29/17 12:20 Urine Other Usperm 06/29/17 12:20 Alcohol, Quantitative < 10 mg/dL (0-10) 06/29/17 15:37 Rheumatoid Factor IgG <5 U (<=6) 06/29/17 14:00 Rheumatoid Factor IgA <5 U (<=6) 06/29/17 14:00 Rheumatoid Factor IgM 9 U (<=6) H 06/29/17 14:00 HIV 1&2 Ag/Ab, 4th Gen Nonreactive (Nonreactive) 07/01/17 06:00 Attending/Attestation - Attestation I have personally seen and examined this patient.: Yes I have fully participated in the care of the patient.: Yes I have reviewed all pertinent clinical information, including history, physical exam and plan: Yes Notes (Text): 07/07/17 17:25 Patient was seen and examined with medical scientist. Agreed with resident assessment and plan. 61 year old male was admitted sepsis secondary to left foot infection. MRI foot showed osteomyelitis. . Wound culture is growing Group G Strept.Patient was started on ceftriaxone, however he developed Neutropenia.Antibiotics has been changed to IV Vancomycin by ID.patient will need total 4 weeks of IV antibiotics. Arterial doppler showed SFA occlusive disease. IR evaluation was requested; no plan for surgical intervention. Patient case was discussed with ID.Antibiotics has been changed to Ertapenem 1 gram daily.Patient will need weekly CBC,CRP and CMP while on antibiotics.Patient was given first dose in the hospital prior to discharge. Management plan was discussed in detail with patient Education was provided.
--- NOTE | 2017-07-07 13:46 | PN ---
DATE: 07/07/2017 SUBJECTIVE: This is a 61-year-old male seen at bedside for followup of an ulcerate to the bunion of his left hallux with osteomyelitis, has evidence as a sinus tract then the patient first presented and was clarified with MRI results. The patient is seen at bedside. He is in no acute distress. PHYSICAL EXAMINATION: His temperature, I do not see logged into the computer as of yet and his blood pressure is 154/75. MEDICATIONS: Noted on the SEP. He is presently on vancomycin as per Infectious Disease and he is getting Lotrimin daily. LABORATORY DATA: The patient's micro was positive for group G Strep. His labs are reviewed. His white blood cell count today is 3.1, H and H is 12.8 and 37.2 and his platelets are 202. His chemistry is grossly within normal except for glucose of 114. Clinically, his foot is improved. His neurovascular status is unchanged. He has palpable pedal pulses. His bunion wound as closed with claudine in eschar. He has multiple calluses on the bottom of his feet and the patient asked me if I would please remove them, and using a #15 surgical blade to the callus submetatarsal II and the callus submetatarsal IV on the left foot was debrided excisionally through the epidermis. No bleeding was produced during the procedure and the patient was much more comfortable after the callus skin was removed. I also then went and debrided the callus around the bunion wound and again, the tissue was just callus that was debrided excisionally. There was no blood or active bleeding and the eschar remains stable post debridement. ASSESSMENT: Osteomyelitis to the bunion of the left foot with resolving ulceration. PLAN OF TREATMENT: Aseptic debridement excisional of the lesions as noted above. The patient's foot was redressed today. A lubricating cream was placed over the entire foot and ankle and he was dressed with dry sterile dressing. He was placed back into his surgical shoe and he will be seen in follow up. Taisha Reyes DPM
--- NOTE | 2017-07-07 19:44 | PN ---
DATE: 07/07/2017 SUBJECTIVE: The patient is in bed, was seen early this morning in room 361, bed 1. No fevers. PHYSICAL EXAMINATION: VITAL SIGNS: Temperature is 99, blood pressure is 150/70 and respiratory rate of 16. HEENT: Unremarkable. NECK: Supple. LUNGS: Has decreased breath sounds. HEART: Normal S1 and S2. ABDOMEN: Soft and nontender. LABORATORY DATA: Reveals the patient has white count of 3.1, hemoglobin of 12 and platelets of 208. Chemistry reveals a BUN of 11, creatinine of 1.4 and procalcitonin 0.42. Microbiology reveals the patient has group G strep. ASSESSMENT AND PLAN: A 61-year-old male who was seen early this morning with the history of alcohol abuse, presenting with sepsis, group G cellulitis, osteomyelitis, developed leukopenia on ceftriaxone and on vancomycin, another option for treatment would give at least 2 weeks of IV antibiotics followed by p.o. quinolones if the no contraindication. We will follow with you. Ayaan Colindres MD
== END 2017-07-07 15:33 | disposition home or self-care (01) | DRG 872 ==
LOC: ED 11:48 → ERH 14:02 → 3RNO 22:58
PROVIDERS: ADMIT Internal Medicine; ATTEND Internal Medicine
PROC: 02HV33Z Insertion of Infusion Device into Superior Vena Cava, Percutaneous Approach (ICD-10-PCS; 2017-07-02)
PROC: B548ZZA Ultrasonography of Superior Vena Cava, Guidance (ICD-10-PCS; 2017-07-02)
PROC: 0HBNXZZ Excision of Left Foot Skin, External Approach (ICD-10-PCS; principal; 2017-07-07)
DX: A40.9 Streptococcal sepsis, unspecified (principal); E11.51 Type 2 diabetes mellitus with diabetic peripheral angiopathy without gangrene; E11.621 Type 2 diabetes mellitus with foot ulcer; D70.9 Neutropenia, unspecified; M86.9 Osteomyelitis, unspecified; L03.116 Cellulitis of left lower limb; E11.65 Type 2 diabetes mellitus with hyperglycemia; E11.69 Type 2 diabetes mellitus with other specified complication; E83.42 Hypomagnesemia; E87.6 Hypokalemia; F10.10 Alcohol abuse, uncomplicated; I10 Essential (primary) hypertension; I16.0 Hypertensive urgency; I65.23 Occlusion and stenosis of bilateral carotid arteries; J84.10 Pulmonary fibrosis, unspecified; D64.9 Anemia, unspecified; L97.529 Non-pressure chronic ulcer of other part of left foot with unspecified severity; M19.90 Unspecified osteoarthritis, unspecified site; M21.00 Valgus deformity, not elsewhere classified, unspecified site; M21.612 Bunion of left foot; Z79.2 Long term (current) use of antibiotics; Z79.899 Other long term (current) drug therapy; Z83.3 Family history of diabetes mellitus; F17.210 Nicotine dependence, cigarettes, uncomplicated; Z91.19 Patient's noncompliance with other medical treatment and regimen; R40.2412 Glasgow coma scale score 13-15, at arrival to emergency department; E78.00 Pure hypercholesterolemia, unspecified